=== PATIENT | male | born 1945 | race Caucasian/White ===

== ENCOUNTER → 2016-05-25 | Outpatient (CLI) | payer OTHER ==
[2013-06-13 11:46] VITALS: BP 113/64
--- NOTE | 2016-05-25 12:32 | US ---
HISTORY: Left renal cyst Study: Bilateral renal sonogram Comparison: None Technique: Multiple grayscale sonographic images were obtained. Findings: The right kidney measured 9.86 x 5.7 x 6.1 centimeters. The left kidney measured 10.1 x 4.9 x 4.9 ce ntimeters. Cortical thickness and cortical echogenicity were normal bilaterally. No solid masses, hy dronephrosis, stones, or perinephric fluid collections were identified. There is a 7.6 centimeter be nign left renal cyst present. Marked prostatic enlargement was identified particularly involving the median lobe. IMPRESSION: 7.6 centimeter benign left renal cyst. Prostatic enlargement Reported By:
== END ==
LOC: RAD 09:47
PROVIDERS: ATTEND Specialist
DX: N28.1 Cyst of kidney, acquired (principal)
CPT/HCPCS: 76770

== ENCOUNTER 2018-12-11 14:28 | Observation (INO) ==
--- NOTE | 2018-12-11 14:51 | DR.DIZZY ---
HPI Time seen Time Seen by Provider: 12/11/18 14:50 PCP Primary Care Physician: RYLAND ROMERO Complaint Chief Complaint:: PT STATES EARLIER HE WAS IN HIS SEWING ROOM HE GOT WEAK AND NEEDED TO SIT DOWN , AND HE CALLED RYLAND ROMERO'S OFFICE AND HE WAS TOLD TO COME TO ER ,BR Self Treatment fo Chief Complaint: PT STATES " HE FELT LIKE HIS BREATHING WAS DOING ANY GOOD "..BR Source History Provided: Patient Mode of Arrival Mode of Arrival: Ambulatory Timing Onset of Chief Complaint: 12/11/18 Symptom Onset: Unknown Location of Weakness Weakness Location: None Context History of: None Associated signs and symptoms Associated Signs and Symptoms: Faintness PMH PMH Past Medical History: Yes Past Medical History: Hypertension Past Medical History Comment: SKIN CANCER, PROSTATE > Past Surgical History: Yes Surgical History: Tonsillectomy Past Surgical History Comment: LEFT SHOULDER Family History History of Family Medical Conditions: No Social History Does patient currently use any type of tobacco product: No Have you used tobacco products in the last 12 months: No Type of Tobacco Use: None Does any household member use tobacco: No Alcohol Use: None Do you use any recreational Drugs:: No Lives With: Family Lives Where: Home infectious screening In the last 2 months have you had wt loss of >10#?: NO Have you had fever, night sweats or hemotysis?: No Have you traveled outside the country in the last 6 months?: No PE Vital Signs Vitals: Temperature 97.0 F Pulse Rate [Left] 53 Pulse Rate 93 Respiratory Rate 18 Blood Pressure [Left Arm] 150/82 Blood Pressure 147/79 O2 Sat by Pulse Oximetry 98 ROR Labs Reviewed Result Diagrams: 12/13/18 05:03 12/13/18 05:03 Laboratory: WBC 4.6 X10^3/uL (3.6-10.0) 12/11/18 15:39 RBC 5.50 X10^6/uL (4.7-6.0) 12/11/18 15:39 Hgb 16.9 g/dL (13.5-18.0) 12/11/18 15:39 Hct 49.0 % (42.0-54.0) 12/11/18 15:39 MCV 89.1 fL (80.0-100.0) 12/11/18 15:39 MCH 30.8 pg (27.0-34.0) 12/11/18 15:39 MCHC 34.5 g/dL (33.0-35.0) 12/11/18 15:39 RDW 14.8 % (11.6-16.5) 12/11/18 15:39 Plt Count 202 X10^3/uL (150.0-450.0) 12/11/18 15:39 MPV 8.3 fL (7.4-11.0) 12/11/18 15:39 Neut % (Auto) 67.8 % (42.0-75.0) 12/11/18 15:39 Lymph % (Auto) 21.3 % (21.0-51.0) 12/11/18 15:39 [place] % (Auto) 8.8 % (0.0-13.0) 12/11/18 15:39 Eos % (Auto) 1.4 % (0.9-2.9) 12/11/18 15:39 Baso % (Auto) 0.7 % (0.2-1.0) 12/11/18 15:39 Neut # (Auto) 3.1 x10^3/uL (2.2-4.8) 12/11/18 15:39 Lymph # (Auto) 1.0 X10^3/uL (1.3-2.9) L 12/11/18 15:39 [place] # (Auto) 0.4 x10^3/uL (0.3-0.8) 12/11/18 15:39 Eos # (Auto) 0.1 x10^3/uL (0.0-0.2) 12/11/18 15:39 Baso # (Auto) 0.0 X10^3/uL (0.0-0.1) 12/11/18 15:39 Absolute Nucleated RBC 0.1 /100WBC 12/11/18 15:39 Sodium 139 mmol/L (136-145) 12/11/18 15:39 Corrected Sodium TNP 12/11/18 15:39 Potassium 3.6 mmol/L (3.5-5.1) 12/11/18 15:39 Chloride 100 mmol/L (98-107) 12/11/18 15:39 Carbon Dioxide 34.1 mmol/L (21-32) H 12/11/18 15:39 BUN 19 mg/dL (7-18) H 12/11/18 15:39 Creatinine 1.24 mg/dL (0.70-1.30) 12/11/18 15:39 Est GFR (MDRD) Af Amer > 60 (>60) 12/11/18 15:39 Est GFR (MDRD) Non-Af > 60 (>60) 12/11/18 15:39 Glucose 94 mg/dL (65-99) 12/11/18 15:39 Calcium 9.3 mg/dL (8.5-10.1) 12/11/18 15:39 Corrected Calcium TNP 12/11/18 15:39 Total Bilirubin 0.80 mg/dL (0.2-1.0) 12/11/18 15:39 AST 31 Units/L (15-37) 12/11/18 15:39 ALT 42 Units/L (12-78) 12/11/18 15:39 Alkaline Phosphatase 47 Units/L (46-116) 12/11/18 15:39 Creatine Kinase 102 Units/L (39-308) 12/11/18 15:39 CK-MB (CK-2) 1.1 ng/mL (0-4.0) 12/11/18 15:39 CK/CKMB % Calc 1.1 % (<4) 12/11/18 15:39 Troponin I < 0.02 ng/mL (0-1.5) 12/11/18 15:39 B-Natriuretic Peptide 30.6 pg/mL (0-79) 12/11/18 15:39 Total Protein 7.4 g/dL (6.4-8.2) 12/11/18 15:39 Albumin 3.9 g/dL (3.4-5.0) 12/11/18 15:39 Globulin 3.5 g/dL (2.5-4.5) 12/11/18 15:39 Albumin/Globulin Ratio 1.1 Ratio (1.1-2.1) 12/11/18 15:39 Specimen Type Clean catch urine 12/11/18 16:02 Urine Color Yellow (YELLOW) 12/11/18 16:02 Urine Appearance Clear (CLEAR) 12/11/18 16:02 Urine pH 6.5 (5.0 - 8.0) 12/11/18 16:02 Ur Specific [place] 1.015 (1.000-1.030) 12/11/18 16:02 Urine Protein Negative (NEGATIVE) 12/11/18 16:02 Urine Glucose (UA) 2+ (NEGATIVE) 12/11/18 16:02 Urine Ketones Negative (NEGATIVE) 12/11/18 16:02 Urine Occult Blood 1+ (NEGATIVE) 12/11/18 16:02 Urine Nitrite Negative (NEGATIVE) 12/11/18 16:02 Urine Bilirubin Negative (NEGATIVE) 12/11/18 16:02 Urine Urobilinogen Normal (NORMAL) 12/11/18 16:02 Ur Leukocyte Esterase Negative (NEGATIVE) 12/11/18 16:02 Urine RBC 3-5 /HPF (0-3) A 12/11/18 16:02 Urine WBC None seen /HPF (0-5) 12/11/18 16:02 Ur Squamous Epith Cells Negative /HPF (NEGATIVE) 12/11/18 16:02 Urine Bacteria Negative /HPF (NEGATIVE) 12/11/18 16:02 Ur Culture Indicated? No/not indicated 12/11/18 16:02 Opioid Opioid Risk Tool Age (Garett box if 16-45): No History of Preadolescent Sexual Abuse: No Total: 0 Total Score Risk Category: Low Risk Copyright: Frankie VALENZUELA predicting aberrant behaviors Diagnosis Discharge Problem: Dizziness, Near syncope Chest pain Qualifiers: Chest pain type: unspecified Qualified Code(s): R07.9 - Chest pain, unspecified Instructions Instructions: Near-Syncope, [id number] Hypertension, [id number] Form - Blood Pressure Record Sheet Dizziness, [id number] Managing Your Hypertension Forms: Excuse From Work or School Patient Portal
[2018-12-11 15:48] LABS: BASOPHILS % (AUTO) 0.7 % (0.2-1.0); EOSINOPHILS # (AUTO) 0.1 x10^3/uL (0.0-0.2); EOSINOPHILS % (AUTO) 1.4 % (0.9-2.9); HEMOGLOBIN 16.9 g/dL (13.5-18.0); LYMPHOCYTES % (AUTO) 21.3 % (21.0-51.0); MEAN CORPUSCULAR HEMOGLOBIN 30.8 pg (27.0-34.0); MEAN CORPUSCULAR HGB CONC 34.5 g/dL (33.0-35.0); MEAN CORPUSCULAR VOLUME 89.1 fL (80.0-100.0); MEAN PLATELET VOLUME 8.3 fL (7.4-11.0); MONOCYTES # (AUTO) 0.4 x10^3/uL (0.3-0.8); MONOCYTES % (AUTO) 8.8 % (0.0-13.0); NEUTROPHILS # (AUTO) 3.1 x10^3/uL (2.2-4.8); NEUTROPHILS % (AUTO) 67.8 % (42.0-75.0); PLATELET COUNT 202 X10^3/uL (150.0-450.0); RED CELL DISTRIBUTION WIDTH 14.8 % (11.6-16.5); WHITE BLOOD COUNT 4.6 X10^3/uL (3.6-10.0)
--- NOTE | 2018-12-11 15:56 | RAD ---
HISTORY: Shortness of breath and generalized weakness Study: Single view of the chest. Comparison: None. Findings: The cardiomediastinal silhouette is normal. No focal consolidations, pleural effusions or pneumothorax. Osseous structures demonstrate no acute abnormality. There is lucency along the right hemidiaphragm that may represent eventration versus air under the right hemidiaphragm IMPRESSION: 1. No acute cardiopulmonary process. 2. Findings as above which may be secondary to normal diaphragmatic eventration however free intraperitoneal air cannot be excluded by this image alone. Correlate physical examination and presentation. Reported By:
[2018-12-11 16:10] LABS: BLOOD UREA NITROGEN 19 mg/dL (7-18); CALCIUM 9.3 mg/dL (8.5-10.1); CARBON DIOXIDE 34.1 mmol/L (21-32); CHLORIDE 100 mmol/L (98-107); CREATININE 1.24 mg/dL (0.70-1.30); SODIUM 139 mmol/L (136-145); TROPONIN I < 0.02 ng/mL (0-1.5); eGFR NON BLACK RACES > 60 (>60)
[2018-12-11 16:15] LABS: ALANINE AMINOTRANSFERASE 42 Units/L (12-78); ALBUMIN 3.9 g/dL (3.4-5.0); ALKALINE PHOSPHATASE 47 Units/L (46-116); ASPARTATE AMINO TRANSFERASE 31 Units/L (15-37); CKMB % 1.1 % (<4); CREATINE KINASE 102 Units/L (39-308); CREATINE KINASE MB 1.1 ng/mL (0-4.0); TOTAL PROTEIN 7.4 g/dL (6.4-8.2)
[2018-12-11 16:23] LABS: BILIRUBIN,URINE NEGATIVE (NEGATIVE); BLOOD/HEMOGLOBIN,URINE 1+ (NEGATIVE); GLUCOSE, URINE 2+ (NEGATIVE); KETONES,URINE NEGATIVE (NEGATIVE); LEUKOCYTE ESTERASE ,URINE NEGATIVE (NEGATIVE); NITRITES,URINE NEGATIVE (NEGATIVE); PH,URINE 6.5 (5.0 - 8.0); PROTEIN,URINE NEGATIVE (NEGATIVE); UROBILINOGEN,URINE NORMAL (NORMAL)
[2018-12-11 16:24] LABS: APPEARANCE,URINE CLEAR (CLEAR); COLOR,URINE YELLOW (YELLOW)
[2018-12-11 16:34] LABS: BACTERIA,URINE NEGATIVE /HPF (NEGATIVE); SQUAMOUS EPITHELIAL CELL,UR NEGATIVE /HPF (NEGATIVE)
[2018-12-11] MEDS ORDERED: PILOCARPINE HCL 5 MG PO SCH (22:00)
[2018-12-11] MEDS ORDERED: ULTRAM PO PRN (22:15)
[2018-12-11 22:24] VITALS: BMI 24.7
[2018-12-11 23:35] LABS: CREATINE KINASE 96 Units/L (39-308); TROPONIN I < 0.02 ng/mL (0-1.5)
[2018-12-11] MEDS ORDERED: PILOCARPINE HCL 5 MG PO PRN (23:45)
[2018-12-12 06:23] LABS: BASOPHILS % (AUTO) 0.5 % (0.2-1.0); EOSINOPHILS # (AUTO) 0.1 x10^3/uL (0.0-0.2); HEMATOCRIT 47.1 % (42.0-54.0); HEMOGLOBIN 16.4 g/dL (13.5-18.0); LYMPHOCYTES % (AUTO) 25.6 % (21.0-51.0); MEAN CORPUSCULAR HEMOGLOBIN 30.7 pg (27.0-34.0); MEAN CORPUSCULAR HGB CONC 34.8 g/dL (33.0-35.0); MEAN CORPUSCULAR VOLUME 88.2 fL (80.0-100.0); MEAN PLATELET VOLUME 8.3 fL (7.4-11.0); MONOCYTES # (AUTO) 0.4 x10^3/uL (0.3-0.8); MONOCYTES % (AUTO) 9.8 % (0.0-13.0); NEUTROPHILS # (AUTO) 2.4 x10^3/uL (2.2-4.8); NEUTROPHILS % (AUTO) 62.1 % (42.0-75.0); PLATELET COUNT 196 X10^3/uL (150.0-450.0); RED BLOOD COUNT 5.34 X10^6/uL (4.7-6.0); WHITE BLOOD COUNT 3.9 X10^3/uL (3.6-10.0)
[2018-12-12 06:53] LABS: ALANINE AMINOTRANSFERASE 38 Units/L (12-78); ALBUMIN 3.6 g/dL (3.4-5.0); ALKALINE PHOSPHATASE 44 Units/L (46-116); ASPARTATE AMINO TRANSFERASE 26 Units/L (15-37); BLOOD UREA NITROGEN 17 mg/dL (7-18); CALCIUM 9.1 mg/dL (8.5-10.1); CHLORIDE 101 mmol/L (98-107); CHOL/HDL RATIO 4.3 (0.0-5.0); CHOLESTEROL 182 mg/dL (0-200); CKMB % 1.1 % (<4); CREATINE KINASE 93 Units/L (39-308); CREATININE 1.14 mg/dL (0.70-1.30); HDL CHOLESTEROL 42 mg/dL (40-60); MAGNESIUM 1.9 mg/dL (1.7-2.9); SODIUM 139 mmol/L (136-145); TOTAL PROTEIN 7.1 g/dL (6.4-8.2); TRIGLYCERIDES 169 mg/dL (0-150); TROPONIN I < 0.02 ng/mL (0-1.5); eGFR NON BLACK RACES > 60 (>60)
[2018-12-12] MEDS ORDERED: KLOR-CON PO PRN (07:28)
[2018-12-12] MEDS ORDERED: K-RIDER 10 MEQ/NS 100 ML 10 MEQ/100 ML BAG IV PRN (07:28)
[2018-12-12] MEDS ORDERED: POTASSIUM CHL 40 MEQ/NS 0.45% 500 ML IV PRN (07:28)
[2018-12-12] MEDS ORDERED: POTASSIUM CHLORIDE LIQ 20 MEQ UDC PO PRN (07:28)
[2018-12-12] MEDS ORDERED: POTASSIUM CHL 60 MEQ/NS 0.45% 500 ML IV PRN (07:28)
[2018-12-12] MEDS ORDERED: MAGNESIUM SULFATE 1 GRAM/100 mL PREMIX 1 GM/100 ML BAG IV PRN (07:28)
[2018-12-12] MEDS ORDERED: MICRO K EXTEN CAP 10 MEQ PO PRN (07:28)
[2018-12-12] MEDS ORDERED: FINASTERIDE 5 MG PO SCH (09:00)
[2018-12-12] MEDS ORDERED: LOSARTAN HYDROCHLOROTHIAZIDE PO SCH (09:00)
[2018-12-12] MEDS: HYZAAR 50/12.5 MG PO SCH (09:45)
[2018-12-12] MEDS: PROSCAR PO SCH (09:45)
[2018-12-12] MEDS: NORVASC TAB 5 MG PO SCH (09:45)
[2018-12-12] MEDS: SILODOSIN 8 MG PO SCH (09:45)
[2018-12-12] MEDS: K-DUR TAB 20 MEQ PO PRN (09:45)
--- NOTE | 2018-12-12 10:22 | DR.H&P ---
H&P - History & Physical for Day of: H&P Date: 12/11/18 - Chief Complaint Chief Complaint: SOB, CHEST PAIN, WEAKNESS, DIZZINESS - History of Present Illness History of Present Illness: IS A 73 YEAR OLD PATIENT OF OURS WHO PRESENTED TO THE ER WITH COMPLAINTS OF SHORTNESS OF BREATH, WEAKNESS, AND DIZZINESS. HE REPORTS FEELING LIKE HE WAS GOING TO PASS OUT AND ALSO REPORTED MILD CHEST DISCOMFORT. ON ARRIVAL TO THE ER, VITALS WERE 97.0-63-20-97%-142/70. LABS WERE OBTAINED. ABNORMAL LAB VALUES INCLUDE THE FOLLOWING: CARBON DIOXIDE 34.1, BUN 19. CARDIAC ENZYMES WITHIN NORMAL LIMITS. URINALYSIS REVEALED RBC 3-5, OTHERWISE, UNREMARKABLE. A CHEST XRAY WAS OBTAINED AND REVEALED: No acute cardiopulmonary process. Findings as above which may be secondary to normal diaphragmatic eventration however free intraperitoneal air cannot be excluded by this image alone. Correlate physical examination and presentation. AN EKG WAS OBTAINED AND REVEALED: SINUS RHYTHM WITH HR 54. HE WAS ADMITTED TO THE HOSPITAL FOR FURTHER EVALUATION AND TREATMENT OF CHEST PAIN, RULE OUT ACUTE ME, DIZZINESS, AND NEAR SYNCOPE. WE WILL OBTAIN SERIAL CARDIAC ENZYMES AND EKGS. WE WILL RESUME HIS HOME MEDICATIONS. OTHERWISE, WE WILL FOLLOW UP WITH AM LABS AND CONTINUE TO MONITOR. - Past Medical History Past Medical History: Hypertension - Past Surgical History Surgical History: Ortho Surgery, Tonsillectomy - Social History Does patient currently use any type of tobacco product: No Have you used tobacco products in the last 12 months: No Type of Tobacco Use: None Does any household member use tobacco: No Alcohol Use: None Drug Use: None Prescription drug monitoring program results: PDMP was not reviewed - Medications Home Medications: poison oak extract Allergy (Verified 12/11/18 14:33) CONTINUE taking the following medications amlodipine 5 mg PO DAILY 12/11/18 [History] brimonidine 1 drp OPHTHALMIC (EYE) BID 12/11/18 [History] dorzolamide 1 drp OPHTHALMIC (EYE) BID 12/11/18 [History] finasteride 5 mg PO DAILY 12/11/18 [History] ketorolac 1 drp OPHTHALMIC (EYE) QID 12/11/18 [History] losartan-hydrochlorothiazide 1 tab PO DAILY 12/11/18 [History] pilocarpine HCl 5 mg PO TID PRN 12/11/18 [History] silodosin [Rapaflo] 8 mg PO DAILY 12/11/18 [History] - Review of Systems Constitutional: Weakness Eyes: No Symptoms Reported ENT: No Symptoms Reported Respiratory: Shortness of Breath Cardiovascular: Chest Pain, Light Headedness Gastrointestinal: No Symptoms Reported Genitourinary: No Symptoms Reported Musculoskeletal: No Symptoms Reported Skin: No Symptoms Reported Neurological: Weakness - Physical Exam Vital Signs: Temperature 97.7 F Pulse Rate [Left] 54 Pulse Rate 93 Respiratory Rate 20 Blood Pressure [Left Arm] 114/68 Blood Pressure 147/79 O2 Sat by Pulse Oximetry 98 Oriented: Normal Eyes: Normal Ear: Normal Nose: Normal Throat: Normal Respiratory: Diminished Throughout Cardiovascular: Normal : Normal Auscultation: Bowel Sounds: Normal Palpation: Normal Tenderness: Normal Skin: Normal Musculoskeletal: Normal Psychiatric: Normal Mood Description: Calm Affect: Normal Speech Pattern: Clear - Assessment/Plan (1) Chest pain Qualifiers: Chest pain type: unspecified Qualified Code(s): R07.9 - Chest pain, unspecified Status: Acute Plan: SERIAL CARDIAC ENZYMES AND EKG, SUPPLEMENTAL OXYGEN, OBTAIN ECHO, CONTINUE TO MONITOR (2) Dizziness Status: Acute (3) Near syncope Status: Acute - Review Patient was examined?: Yes - Allergies Allergies/Adverse Reactions: Allergies Allergy/AdvReac Type Severity Reaction Status Date / Time poison oak extract Allergy Verified 12/11/18 14:33
[2018-12-12] MEDS: ACULAR 0.5% OPHTH 1 DOSE OP SCH ×3 (13:02→21:45)
[2018-12-12] MEDS: ALPHAGAN P 0.15% OPHTH SOLN OP SCH ×2 (13:02→21:04)
[2018-12-12] MEDS: TRUSOPT PLUS (OPHTH) OP SCH ×2 (13:02→20:28)
[2018-12-12] MEDS: LOVENOX INJ 40 MG SYR SC SCH (13:03)
--- NOTE | 2018-12-12 20:55 | PCM.PROG ---
Progress Note - Progress Note for Day of Date of Exam: 12/12/18 - Subjective Subjective: WAS ADMITTED FOR CHEST PAIN, RULE OUT ACUTE [place], DIZZINESS, AND NEAR SYNCOPE. TODAY, HE IS ALERT AND ORIENTED, SITTING UP ON THE COUCH ON MORNING ROUNDS. HE CONTINUES WITH WEAKNESS AND DIZZINESS AT TIMES, BUT DENIES CHEST PAIN. ON EXAMINATION, HEART IS REGULAR IN RATE AND RHYTHM. BILATERAL LUNGS ARE NOTED WITH DIMINISHED LUNG SOUNDS THROUGHOUT. ABDOMEN IS ROUND, SOFT, AND NON-TENDER WITH NORMAL BOWEL SOUNDS NOTED IN ALL QUADRANTS. HIS VITALS THIS MORNING ARE: 97.8-52-18-97%-145/67. LABS WERE OBTAINED. ABNORMAL LAB VALUES INCLUDE THE FOLLOWING: POTASSIUM 3.4, ALK PHOS 44, TRIGLYCERIDES 169, LDL 106. CARDIAC ENZYMES AND EKGS HAVE BEEN WITHIN NORMAL LIMITS. TODAY, WE WILL STA RT THE PNEUMONIA PROTOCOL AND OBTAIN AN ECHO. OTHERWISE, WE WILL CONTINUE WITH CURRENT PLAN OF CARE. WE PLAN TO FOLLOW UP WITH AM LABS AND CONTINUE TO MONITOR. - Past Medical Family Social History Past Med/Fam/Surg Hx: No changes since H&P Allergies: Allergies poison oak extract Allergy (Verified 12/11/18 14:33) - Review of Systems ROS: No change since H&P - Vital Signs and I&O's Vital Signs: Temperature 98 F Pulse Rate [Left] 80 Pulse Rate 93 Respiratory Rate 18 Blood Pressure [Left Arm] 92/59 Blood Pressure 147/79 O2 Sat by Pulse Oximetry 98 Intake and Output: Intake & Output 12/10/18 12/11/18 12/12/18 12/13/18 11:59 11:59 11:59 11:59 Intake Total 730 / 730 Output Total Balance 50 50 729 / 729 - Physical Exam Oriented: Normal Eyes: Normal Ear: Normal Nose: Normal Throat: Normal Cardiovascular: Normal : Normal Auscultation: Bowel Sounds: Normal Palpation: Normal Tenderness: Normal Skin: Normal Musculoskeletal: Normal Psychiatric: Normal Mood Description: Calm Affect: Normal Speech Pattern: Clear - Laboratory and Diagnostics Result Diagrams: 12/12/18 05:50 12/12/18 05:50 Labs: Laboratory WBC 3.9 X10^3/uL (3.6-10.0) 12/12/18 05:50 RBC 5.34 X10^6/uL (4.7-6.0) 12/12/18 05:50 Hgb 16.4 g/dL (13.5-18.0) 12/12/18 05:50 Hct 47.1 % (42.0-54.0) 12/12/18 05:50 MCV 88.2 fL (80.0-100.0) 12/12/18 05:50 MCH 30.7 pg (27.0-34.0) 12/12/18 05:50 MCHC 34.8 g/dL (33.0-35.0) 12/12/18 05:50 RDW 15.0 % (11.6-16.5) 12/12/18 05:50 Plt Count 196 X10^3/uL (150.0-450.0) 12/12/18 05:50 MPV 8.3 fL (7.4-11.0) 12/12/18 05:50 Neut % (Auto) 62.1 % (42.0-75.0) 12/12/18 05:50 Lymph % (Auto) 25.6 % (21.0-51.0) 12/12/18 05:50 [place] % (Auto) 9.8 % (0.0-13.0) 12/12/18 05:50 Eos % (Auto) 2.0 % (0.9-2.9) 12/12/18 05:50 Baso % (Auto) 0.5 % (0.2-1.0) 12/12/18 05:50 Neut # (Auto) 2.4 x10^3/uL (2.2-4.8) 12/12/18 05:50 Lymph # (Auto) 1.0 X10^3/uL (1.3-2.9) L 12/12/18 05:50 [place] # (Auto) 0.4 x10^3/uL (0.3-0.8) 12/12/18 05:50 Eos # (Auto) 0.1 x10^3/uL (0.0-0.2) 12/12/18 05:50 Baso # (Auto) 0.0 X10^3/uL (0.0-0.1) 12/12/18 05:50 Absolute Nucleated RBC 0.1 /100WBC 12/12/18 05:50 Sodium 139 mmol/L (136-145) 12/12/18 05:50 Corrected Sodium TNP 12/12/18 05:50 Potassium 3.4 mmol/L (3.5-5.1) L 12/12/18 05:50 Chloride 101 mmol/L (98-107) 12/12/18 05:50 Carbon Dioxide 31.0 mmol/L (21-32) 12/12/18 05:50 BUN 17 mg/dL (7-18) 12/12/18 05:50 Creatinine 1.14 mg/dL (0.70-1.30) 12/12/18 05:50 Est GFR (MDRD) Af Amer > 60 (>60) 12/12/18 05:50 Est GFR (MDRD) Non-Af > 60 (>60) 12/12/18 05:50 Glucose 91 mg/dL (65-99) 12/12/18 05:50 Calcium 9.1 mg/dL (8.5-10.1) 12/12/18 05:50 Corrected Calcium TNP 12/12/18 05:50 Magnesium 1.9 mg/dL (1.7-2.9) 12/12/18 05:50 Total Bilirubin 0.90 mg/dL (0.2-1.0) 12/12/18 05:50 AST 26 Units/L (15-37) 12/12/18 05:50 ALT 38 Units/L (12-78) 12/12/18 05:50 Alkaline Phosphatase 44 Units/L (46-116) L 12/12/18 05:50 Creatine Kinase 93 Units/L (39-308) 12/12/18 05:50 CK-MB (CK-2) 1.0 ng/mL (0-4.0) 12/12/18 05:50 CK/CKMB % Calc 1.1 % (<4) 12/12/18 05:50 Troponin I < 0.02 ng/mL (0-1.5) 12/12/18 05:50 B-Natriuretic Peptide 30.6 pg/mL (0-79) 12/11/18 15:39 Total Protein 7.1 g/dL (6.4-8.2) 12/12/18 05:50 Albumin 3.6 g/dL (3.4-5.0) 12/12/18 05:50 Globulin 3.5 g/dL (2.5-4.5) 12/12/18 05:50 Albumin/Globulin Ratio 1.0 Ratio (1.1-2.1) L 12/12/18 05:50 Triglycerides 169 mg/dL (0-150) H 12/12/18 05:50 Cholesterol 182 mg/dL (0-200) 12/12/18 05:50 LDL Cholesterol, Calc 106 mg/dL (0-100) H 12/12/18 05:50 HDL Cholesterol 42 mg/dL (40-60) 12/12/18 05:50 Cholesterol/HDL Ratio 4.3 (0.0-5.0) 12/12/18 05:50 Specimen Type Clean catch urine 12/11/18 16:02 Urine Color Yellow (YELLOW) 12/11/18 16:02 Urine Appearance Clear (CLEAR) 12/11/18 16:02 Urine pH 6.5 (5.0 - 8.0) 12/11/18 16:02 Ur Specific [place] 1.015 (1.000-1.030) 12/11/18 16:02 Urine Protein Negative (NEGATIVE) 12/11/18 16:02 Urine Glucose (UA) 2+ (NEGATIVE) 12/11/18 16:02 Urine Ketones Negative (NEGATIVE) 12/11/18 16:02 Urine Occult Blood 1+ (NEGATIVE) 12/11/18 16:02 Urine Nitrite Negative (NEGATIVE) 12/11/18 16:02 Urine Bilirubin Negative (NEGATIVE) 12/11/18 16:02 Urine Urobilinogen Normal (NORMAL) 12/11/18 16:02 Ur Leukocyte Esterase Negative (NEGATIVE) 12/11/18 16:02 Urine RBC 3-5 /HPF (0-3) A 12/11/18 16:02 Urine WBC None seen /HPF (0-5) 12/11/18 16:02 Ur Squamous Epith Cells Negative /HPF (NEGATIVE) 12/11/18 16:02 Urine Bacteria Negative /HPF (NEGATIVE) 12/11/18 16:02 Ur Culture Indicated? No/not indicated 12/11/18 16:02 - Plan (1) Chest pain Status: Acute Qualifiers: Chest pain type: unspecified Qualified Code(s): R07.9 - Chest pain, unspecified Plan: SERIAL CARDIAC ENZYMES AND EKG, SUPPLEMENTAL OXYGEN, OBTAIN ECHO, CONTINUE TO MONITOR (2) Dizziness Status: Acute (3) Near syncope Status: Acute
[2018-12-13 05:42] LABS: BASOPHILS % (AUTO) 0.8 % (0.2-1.0); EOSINOPHILS # (AUTO) 0.1 x10^3/uL (0.0-0.2); EOSINOPHILS % (AUTO) 1.9 % (0.9-2.9); HEMATOCRIT 48.3 % (42.0-54.0); HEMOGLOBIN 16.7 g/dL (13.5-18.0); LYMPHOCYTES # (AUTO) 1.1 X10^3/uL (1.3-2.9); LYMPHOCYTES % (AUTO) 26.2 % (21.0-51.0); MEAN CORPUSCULAR HEMOGLOBIN 30.7 pg (27.0-34.0); MEAN CORPUSCULAR HGB CONC 34.6 g/dL (33.0-35.0); MEAN CORPUSCULAR VOLUME 88.8 fL (80.0-100.0); MEAN PLATELET VOLUME 8.5 fL (7.4-11.0); MONOCYTES # (AUTO) 0.4 x10^3/uL (0.3-0.8); MONOCYTES % (AUTO) 9.6 % (0.0-13.0); NEUTROPHILS # (AUTO) 2.5 x10^3/uL (2.2-4.8); NEUTROPHILS % (AUTO) 61.5 % (42.0-75.0); PLATELET COUNT 199 X10^3/uL (150.0-450.0); RED BLOOD COUNT 5.44 X10^6/uL (4.7-6.0); RED CELL DISTRIBUTION WIDTH 14.7 % (11.6-16.5); WHITE BLOOD COUNT 4.1 X10^3/uL (3.6-10.0)
[2018-12-13 05:55] LABS: ALANINE AMINOTRANSFERASE 34 Units/L (12-78); ALBUMIN 3.6 g/dL (3.4-5.0); ALKALINE PHOSPHATASE 47 Units/L (46-116); ASPARTATE AMINO TRANSFERASE 21 Units/L (15-37); BLOOD UREA NITROGEN 22 mg/dL (7-18); CALCIUM 9.1 mg/dL (8.5-10.1); CARBON DIOXIDE 31.1 mmol/L (21-32); CHLORIDE 101 mmol/L (98-107); CREATININE 1.25 mg/dL (0.70-1.30); SODIUM 138 mmol/L (136-145); TOTAL PROTEIN 7.3 g/dL (6.4-8.2); eGFR NON BLACK RACES 60 (>60)
[2018-12-13] MEDS: K-DUR TAB 20 MEQ PO PRN (06:26)
[2018-12-13 08:06] VITALS: BP 134/71
[2018-12-13] MEDS: PROSCAR PO SCH (08:42)
[2018-12-13] MEDS: HYZAAR 50/12.5 MG PO SCH (08:42)
[2018-12-13] MEDS: NORVASC TAB 5 MG PO SCH (08:42)
[2018-12-13] MEDS: SILODOSIN 8 MG PO SCH (08:44)
[2018-12-13] MEDS: ACULAR 0.5% OPHTH 1 DOSE OP SCH (08:49)
[2018-12-13] MEDS: LOVENOX INJ 40 MG SYR SC SCH (08:53)
[2018-12-13] MEDS: TRUSOPT PLUS (OPHTH) OP SCH (09:36)
[2018-12-13] MEDS: ALPHAGAN P 0.15% OPHTH SOLN OP SCH (09:36)
--- NOTE | 2018-12-13 09:40 | VAS ---
HISTORY: Syncope. Prior history of hypertension and prostate cancer Study: Carotid Doppler ultrasound Comparison: No priors Technique: Grayscale, color and duplex Doppler ultrasound of the carotid vertebral arteries is provided. Findings: Carotid and vertebral arteries flow cephalad bilaterally. Mild plaque formation is present involving the right carotid bulb and proximal ICA and ECA regions. More moderate appearing atherosclerotic plaque is seen involving left CCA left carotid bulb, proximal ICA ECA regions. Peak systolic velocity of the right ICA is 68.7 centimeters/second with an ICA/CCA ratio of 0.60. The peak systolic arterial velocity of the left ICA is 83.7 centimeters/second with an ICA/CCA ratio of 1.7. There is no indication of hemodynamically significant stenosis or occlusion. IMPRESSION: Less than 50% carotid stenosis bilaterally. Reported By:
== END 2018-12-13 12:05 | disposition home or self-care (01) ==
LOC: MED/SURG 14:32 → ER 14:32 → MED/SURG 21:52
PROVIDERS: ADMIT Internal Medicine; ATTEND Internal Medicine
CPT/HCPCS: 36415; 71010; 71045; 80053; 80061; 81001; 82550; 82553; 83735; 83880; 84484; 85025; 93005; 93306; 93880; 94760; 96365; 96372; 97161; 99284; A4222; S0138; G0378; J1650

== ENCOUNTER 2022-01-22 11:21 | Observation (INO) ==
--- NOTE | 2022-01-22 12:19 | DR.EXTPAIN ---
HPI Time seen Time Seen by Provider: 01/22/22 12:16 PCP Primary Care Physician: Vahe HPI Comment HPI Comment: Pt accompanied by daughters.Pt lives with aunts who are self ins in the 90`s .Aunt heard a noise when patient pfell.she caled the dughetr .She was unable to initially move the pateintEMS called and patient was brought to Er for evaluation .Pt has hx of dementia Complaint/Symptoms Chief Complaint Doctor Comments: fall Chief Complaint:: Patient's family states that he fell in the shower. When they found him they state that he was unable to follow simple commands and was very pale. He presents with a small skin tear on his left arm. The family state that they think he hit his head when he fell. The patient is unable to answer questions due to dementia. COVID-19 Coronavirus risk:travel/contact w/high risk person: No Has patient experienced Coronavirus symptoms: No Nurses notes reviewed Nurses Notes Review: Yes Source History Provided: Family Member Mode of arrival Mode of Arrival: EMS Timing Onset of Chief Complaint: 01/22/22 PMH PMH Past Medical History: Yes Past Medical History: Dementia and Hypertension Past Surgical History: Yes Surgical History: Ortho Surgery and Tonsillectomy Family History History of Family Medical Conditions: Yes Family Medical History: Diabetes Mellitus, Cancer, NH, Coronary Artery Disease and Hypertension Social History Does patient currently use any type of tobacco product: No Have you used tobacco products in the last 12 months: No Type of Tobacco Use: None Does any household member use tobacco: No Alcohol Use: None Do you use any recreational Drugs:: No Lives With: Family Lives Where: Home Travel Risk Coronavirus risk:travel/contact w/high risk person: No Has patient experienced Coronavirus symptoms: No Infectious screening In the last 2 months have you had wt loss of >10#?: NO Have you had fever, night sweats or hemotysis?: No Have you traveled outside the country in the last 6 months?: No Isolation: Standard ROS Review of Systems Constitutional: No Symptoms Reported Eyes: No Symptoms Reported ENTM: No Symptoms Reported Respiratoy: No Symptoms Reported Cardiovascular: No Symptoms Reported Gastrointestinal/Abdominal: No Symptoms Reported Neurological: Other (fall ) Musculoskeletal: See HPI Integumentary: No Symptoms Reported Endocrine: No Symptoms Reported PE Vital Signs Vitals: Temperature 97.8 F Pulse Rate 55 Respiratory Rate 18 Blood Pressure [Left Arm] 134/71 Blood Pressure 130/65 O2 Sat by Pulse Oximetry 98 General Limitations: Other (dementia ) General Appearance: Alert and In No Apparent Distress Head Head Exam: Normal Inspection, Atraumatic and Normocephalic Eyes Eye exam: Normal Appearance, PERRL and EOMI ENT ENT Exam: Normal Exam, Normal Oropharynx and Mucous Membranes Moist Neck Neck Exam: Normal Inspection and Tenderness Chest Chest Inspection: Normal Inspection and Symmetric Chest Wall Rise Respiratory Respiratory Exam: Normal Lung Sounds Bilat Respiratory Exam: Bilateral: Clear to Auscultation Cardiovascular Cardiovascular Exam: +S1 and +S2 Abdominal Exam Abdominal Exam: Normal Inspection, Normal Bowel Sounds and Soft Extremities Extremities Exam: Normal Inspection and Full ROM Upper Extremities Shoulder Exam: Normal Inspection and Full ROM Arm Exam: Normal Inspection, Full ROM and Other (left forram skin tear) Lower Extremities Hip/Pelvis Exam: Normal Inspection and Full ROM Knee Exam: Normal Inspection and Full ROM Neurological Neurological Exam: Alert Skin Skin Exam: Normal Color MDM Differential Diagnosis Differential Diagnosis: Contusion and Other (fall,head and neck injury ) ROR Labs Reviewed Laboratory Results Reviewed?: Yes Result Diagrams: 01/22/22 12:56 01/22/22 12:56 Laboratory: WBC 9.7 X10^3/uL (3.6-10.0) 01/22/22 12:56 RBC 4.15 X10^6/uL (4.7-6.0) L 01/22/22 12:56 Hgb 13.0 g/dL (13.5-18.0) L 01/22/22 12:56 Hct 37.5 % (42.0-54.0) L 01/22/22 12:56 MCV 90.4 fL (80.0-100.0) 01/22/22 12:56 MCH 31.3 pg (27.0-34.0) 01/22/22 12:56 MCHC 34.6 g/dL (33.0-35.0) 01/22/22 12:56 RDW 14.1 % (11.6-16.5) 01/22/22 12:56 Plt Count 201 X10^3/uL (150.0-450.0) 01/22/22 12:56 MPV 9.0 fL (7.4-11.0) 01/22/22 12:56 Neut % (Auto) 86.9 % (42.0-75.0) H 01/22/22 12:56 Lymph % (Auto) 6.6 % (21.0-51.0) L 01/22/22 12:56 Metcalfe % (Auto) 5.1 % (0.0-13.0) 01/22/22 12:56 Eos % (Auto) 1.0 % (0.9-2.9) 01/22/22 12:56 Baso % (Auto) 0.4 % (0.2-1.0) 01/22/22 12:56 Neut # (Auto) 8.4 x10^3/uL (2.2-4.8) H 01/22/22 12:56 Lymph # (Auto) 0.6 X10^3/uL (1.3-2.9) L 01/22/22 12:56 Metcalfe # (Auto) 0.5 x10^3/uL (0.3-0.8) 01/22/22 12:56 Eos # (Auto) 0.1 x10^3/uL (0.0-0.2) 01/22/22 12:56 Baso # (Auto) 0.0 X10^3/uL (0.0-0.1) 01/22/22 12:56 Absolute Nucleated RBC 0.0 /100WBC 01/22/22 12:56 Sodium 141 mmol/L (136-145) 01/22/22 12:56 Corrected Sodium 141 mmol/L (136-145) 01/22/22 12:56 Potassium 4.2 mmol/L (3.5-5.1) 01/22/22 12:56 Chloride 106 mmol/L (98-107) 01/22/22 12:56 Carbon Dioxide 24.8 mmol/L (21-32) 01/22/22 12:56 BUN 46 mg/dL (7-18) H 01/22/22 12:56 Creatinine 4.41 mg/dL (0.70-1.30) H 01/22/22 12:56 Est GFR (MDRD) Af Amer 17 (>60) L 01/22/22 12:56 Est GFR (MDRD) Non-Af 14 (>60) L 01/22/22 12:56 Glucose 120 mg/dL (65-99) H 01/22/22 12:56 Calcium 8.5 mg/dL (8.5-10.1) 01/22/22 12:56 Corrected Calcium 9.1 mg/dL (8.5-10.1) 01/22/22 12:56 Total Bilirubin 0.40 mg/dL (0.2-1.0) 01/22/22 12:56 AST 24 Units/L (15-37) 01/22/22 12:56 ALT 23 Units/L (12-78) 01/22/22 12:56 Alkaline Phosphatase 76 Units/L (46-116) 01/22/22 12:56 Total Protein 6.9 g/dL (6.4-8.2) 01/22/22 12:56 Albumin 3.3 g/dL (3.4-5.0) L 01/22/22 12:56 Globulin 3.6 g/dL (2.5-4.5) 01/22/22 12:56 Albumin/Globulin Ratio 0.9 Ratio (1.1-2.1) L 01/22/22 12:56 TSH 3rd Generation 4.342 uIU/mL (0.358-3.74) H 01/22/22 12:56 Opioid Opioid Risk Tool Age (Garett box if 16-45): No History of Preadolescent Sexual Abuse: No Total: 0 Total Score Risk Category: Low Risk Copyright: Frankie VALENZUELA predicting aberrant behaviors Discharge Plan Diagnosis Discharge Problem: Fall, Head injury, Stage 5 chronic kidney disease, Dementia, Anemia, Hypothyroidism Discharge Plan Patient Disposition: 09 ADMITTED INPATIENT Condition: Stable Prescriptions: No Action pilocarpine HCl 5 mg Tablet 5 mg PO TID PRN amlodipine 5 mg Tablet 5 mg PO DAILY losartan-hydrochlorothiazide 100-25 mg Tablet 1 tab PO DAILY finasteride 5 mg Tablet 5 mg PO DAILY silodosin [Rapaflo] 8 mg Capsule 8 mg PO DAILY ketorolac 0.5 % drops 1 drp OPHTHALMIC (EYE) QID Rx Instructions: 1 DROP RIGHT EYE 4 TIMES A DAY brimonidine 0.15 % drops 1 drp OPHTHALMIC (EYE) BID Rx Instructions: 1 DROP BOTH EYES TWICE A DAY dorzolamide 2 % drops 1 drp OPHTHALMIC (EYE) BID Rx Instructions: 1 DROP BOTH EYES TWICE A DAY levothyroxine 50 mcg tablet 50 mcg PO QAM aspirin [Ecotrin] 325 mg Tablet,Delayed Release (Dr/Ec) 325 mg PO QDAY Qty: 90 3RF Rx Instructions: TAKE ONE TABLET DAILY Health Concerns: Post Hospitalization: new medications and changes needed to prevent readmission or further decline. Pt educated and given instructions on all concerns. Plan of Treatment: Continue with present treatment and follow up plan. Pt is to keep follow up appointment as instructed and take medications as ordered. Orders to Discharge Patient Discharge Orders: Transfer (Routine); Ordered 01/22/22 Ordered By: Loy Guzman Follow ups/Referrals Follow ups/Referrals: Trevor Cotter [Primary Care Provider] - 3 days ADDITIONAL NOTES Additional Notes Additional Notes: stage 5 renal failure ,fall,head injury ,dementia ,abnormal TSH anemia .spoke with Dr Cotter agrees to accept for admission
[2022-01-22 13:06] LABS: BASOPHILS % (AUTO) 0.4 % (0.2-1.0); EOSINOPHILS # (AUTO) 0.1 x10^3/uL (0.0-0.2); HEMATOCRIT 37.5 % (42.0-54.0); LYMPHOCYTES # (AUTO) 0.6 X10^3/uL (1.3-2.9); LYMPHOCYTES % (AUTO) 6.6 % (21.0-51.0); MEAN CORPUSCULAR HEMOGLOBIN 31.3 pg (27.0-34.0); MEAN CORPUSCULAR HGB CONC 34.6 g/dL (33.0-35.0); MEAN CORPUSCULAR VOLUME 90.4 fL (80.0-100.0); MONOCYTES # (AUTO) 0.5 x10^3/uL (0.3-0.8); MONOCYTES % (AUTO) 5.1 % (0.0-13.0); NEUTROPHILS # (AUTO) 8.4 x10^3/uL (2.2-4.8); NEUTROPHILS % (AUTO) 86.9 % (42.0-75.0); RED BLOOD COUNT 4.15 X10^6/uL (4.7-6.0); RED CELL DISTRIBUTION WIDTH 14.1 % (11.6-16.5); WHITE BLOOD COUNT 9.7 X10^3/uL (3.6-10.0)
[2022-01-22 13:22] LABS: ALBUMIN 3.3 g/dL (3.4-5.0); CALCIUM 8.5 mg/dL (8.5-10.1); CARBON DIOXIDE 24.8 mmol/L (21-32); COR CA(FOR HYPOALB) 9.1 mg/dL (8.5-10.1); CREATININE 4.41 mg/dL (0.70-1.30); TOTAL PROTEIN 6.9 g/dL (6.4-8.2); TSH (3RD GENERATION) 4.342 uIU/mL (0.358-3.74)
--- NOTE | 2022-01-22 13:59 | CT ---
HISTORYFallSTUDYCT brain without contrastCOMPARISONNoneTECHNIQUEMultiple axial images of the brain were obtained from the skull base to the vertex [without] administration of IV contrast.Dose reduction techniques including Automated Exposure Control (AEC) and adjustment of mA and kV were utlized.FINDINGS[No acute intraparenchymal hemorrhage or mass can be identified.] [No extra-axial fluid collections are seen.] [No alteration in the attenuation of the brain parenchyma can be identified to suggest acute or subacute ischemic change.] Scattered periventricular small vessel ischemic changes and age-appropriate atrophy are seen. [The ventricular system is symmetric and nondilated.] [The extracranial structures are grossly unremarkable.]IMPRESSION[No acute intracranial process can be identified.]Electronically signed by: HERMELINDO COPELAND (Jan 22, 2022 13:57:15)
--- NOTE | 2022-01-22 14:00 | CT ---
HISTORYHead/neck injury after fall.STUDYCT cervical spine without contrastCOMPARISONNone available.TECHNIQUEMultiple axial images of the cervical spine were obtained from the skull base to the thoracic inlet without administration of IV contrast. Sagittal and coronal reformats were performed and reviewed. Dose reduction techniques including Automated Exposure Control (AEC) and adjustment of mA and kV were utilized.FINDINGSAlignment: There is exaggeration of the cervical lordosis with grade 1 anterolisthesis seen at C4-C5, C5-C6 and C6-C7 and mild retrolisthesis of C3 on C4 also noted.Vertebrae: No acute fracture.Disc spaces/facet joints: Multilevel mild discogenic degenerative changes are noted with moderate degenerative changes seen at the atlantoaxial joint and multilevel facet arthropathy. There is mild spinal canal stenosis at C3-C4. No other significant spinal canal stenosis. Multilevel moderate foraminal narrowing is present.Soft tissues: No acute findings. There is moderate atherosclerosis.IMPRESSION1. No acute findings.2. Additional findings as above, including moderate cervical spondylosis with multilevel anterolisthesis and retrolisthesis.Electronically signed by: Kemar Gutiérrez (Jan 22, 2022 13:58:03)
[2022-01-22] MEDS: NORVASC TAB 5 MG PO SCH (18:33)
[2022-01-22] MEDS: NS 1,000 ML IV 1,000 ML IV SCH (18:33)
[2022-01-22 18:38] VITALS: BMI 29.9
[2022-01-22] MEDS: ALPHAGAN-P OPHTH 1 DOSE OP SCH (21:00)
[2022-01-22] MEDS: XALATAN OP SCH (21:59)
[2022-01-22] MEDS: NAMENDA TAB 10 MG PO SCH (22:00)
[2022-01-22] MEDS: CRESTOR TAB 10 MG PO SCH (22:00)
[2022-01-23 05:19] LABS: BASOPHILS % (AUTO) 0.3 % (0.2-1.0); EOSINOPHILS # (AUTO) 0.3 x10^3/uL (0.0-0.2); EOSINOPHILS % (AUTO) 2.9 % (0.9-2.9); HEMATOCRIT 36.1 % (42.0-54.0); HEMOGLOBIN 12.6 g/dL (13.5-18.0); LYMPHOCYTES # (AUTO) 1.2 X10^3/uL (1.3-2.9); LYMPHOCYTES % (AUTO) 13.2 % (21.0-51.0); MEAN CORPUSCULAR HEMOGLOBIN 31.2 pg (27.0-34.0); MEAN CORPUSCULAR HGB CONC 34.9 g/dL (33.0-35.0); MEAN CORPUSCULAR VOLUME 89.5 fL (80.0-100.0); MEAN PLATELET VOLUME 9.5 fL (7.4-11.0); MONOCYTES # (AUTO) 0.6 x10^3/uL (0.3-0.8); MONOCYTES % (AUTO) 7.1 % (0.0-13.0); NEUTROPHILS % (AUTO) 76.5 % (42.0-75.0); RED BLOOD COUNT 4.03 X10^6/uL (4.7-6.0); RED CELL DISTRIBUTION WIDTH 13.9 % (11.6-16.5); WHITE BLOOD COUNT 9.1 X10^3/uL (3.6-10.0)
[2022-01-23 05:32] LABS: ALANINE AMINOTRANSFERASE 19 Units/L (12-78); ALBUMIN 3.3 g/dL (3.4-5.0); ALKALINE PHOSPHATASE 76 Units/L (46-116); ASPARTATE AMINO TRANSFERASE 22 Units/L (15-37); BLOOD UREA NITROGEN 41 mg/dL (7-18); CALCIUM 8.7 mg/dL (8.5-10.1); CARBON DIOXIDE 20.7 mmol/L (21-32); CHLORIDE 108 mmol/L (98-107); COR CA(FOR HYPOALB) 9.3 mg/dL (8.5-10.1); CREATININE 4.36 mg/dL (0.70-1.30); SODIUM 142 mmol/L (136-145); TOTAL PROTEIN 6.8 g/dL (6.4-8.2); eGFR NON BLACK RACES 14 (>60)
[2022-01-23] MEDS: SYNTHROID 75 mcg TAB PO SCH (06:04)
[2022-01-23] MEDS: NORVASC TAB 5 MG PO SCH (08:47)
[2022-01-23] MEDS: NAMENDA TAB 10 MG PO SCH ×2 (08:47→20:59)
[2022-01-23] MEDS: PROSCAR PO SCH (08:48)
[2022-01-23] MEDS: ALPHAGAN-P OPHTH 1 DOSE OP SCH ×2 (08:50→20:58)
[2022-01-23] MEDS: SILODOSIN 8 MG PO SCH (08:51)
[2022-01-23] MEDS: NS 1,000 ML IV 1,000 ML IV SCH ×2 (08:51→21:32)
[2022-01-23] MEDS ORDERED: EXELON PATCH TD SCH (09:00)
[2022-01-23] MEDS: ULTRAM PO PRN (09:24)
[2022-01-23] MEDS: PATIENT'S HOME MEDICATION TD SCH (11:25)
[2022-01-23] MEDS: CRESTOR TAB 10 MG PO SCH (20:57)
[2022-01-23] MEDS: XALATAN OP SCH (21:00)
[2022-01-24] MEDS: SYNTHROID 75 mcg TAB PO SCH (06:18)
[2022-01-24 06:36] LABS: BASOPHILS % (AUTO) 0.3 % (0.2-1.0); EOSINOPHILS % (AUTO) 0.5 % (0.9-2.9); HEMATOCRIT 32.4 % (42.0-54.0); HEMOGLOBIN 11.4 g/dL (13.5-18.0); LYMPHOCYTES # (AUTO) 0.4 X10^3/uL (1.3-2.9); LYMPHOCYTES % (AUTO) 5.7 % (21.0-51.0); MEAN CORPUSCULAR HEMOGLOBIN 31.6 pg (27.0-34.0); MEAN CORPUSCULAR HGB CONC 35.1 g/dL (33.0-35.0); MEAN CORPUSCULAR VOLUME 90.1 fL (80.0-100.0); MEAN PLATELET VOLUME 9.7 fL (7.4-11.0); MONOCYTES # (AUTO) 0.3 x10^3/uL (0.3-0.8); MONOCYTES % (AUTO) 3.8 % (0.0-13.0); NEUTROPHILS # (AUTO) 6.9 x10^3/uL (2.2-4.8); NEUTROPHILS % (AUTO) 89.7 % (42.0-75.0); WHITE BLOOD COUNT 7.7 X10^3/uL (3.6-10.0)
[2022-01-24 06:53] LABS: ALBUMIN 2.8 g/dL (3.4-5.0); CALCIUM 8.3 mg/dL (8.5-10.1); COR CA(FOR HYPOALB) 9.3 mg/dL (8.5-10.1); CREATININE 4.31 mg/dL (0.70-1.30); TOTAL PROTEIN 6.1 g/dL (6.4-8.2)
[2022-01-24] MEDS: NS 1,000 ML IV 1,000 ML IV SCH ×2 (09:08→16:42)
[2022-01-24] MEDS: NAMENDA TAB 10 MG PO SCH ×2 (09:10→21:45)
[2022-01-24] MEDS: PROSCAR PO SCH (09:11)
[2022-01-24] MEDS: NORVASC TAB 5 MG PO SCH ×2 (09:11→12:00)
[2022-01-24] MEDS: PATIENT'S HOME MEDICATION TD SCH (09:12)
[2022-01-24] MEDS: SILODOSIN 8 MG PO SCH (09:15)
[2022-01-24] MEDS: ALPHAGAN-P OPHTH 1 DOSE OP SCH ×2 (09:15→22:10)
[2022-01-24] MEDS: LOVENOX INJ 30 MG SYR SC SCH (10:00)
--- NOTE | 2022-01-24 17:24 | DR.H&P ---
H&P - History & Physical for Day of: H&P Date: 01/22/22 - Chief Complaint Chief Complaint: FALLS, AMS, WEAKNESS - History of Present Illness History of Present Illness: IS A 76 YEAR OLD PATIENT OF OURS. HE PRESENTED TO THE ER WITH COMPLAINTS OF RECENT FALLS, WEAKNESS, AND ALTERED MENTAL STATUS. PATIENT REPORTS THAT HE FELL IN THE SHOWER. HIS FAMILY MEMBERS REPORT THAT WHEN THEY FOUND HIM, HE WAS UNABLE TO FOLLOW SIMPLE COMMANDS AND WAS VERY PALE. THEY BELIEVE HE HIT HIS HEAD WHEN HE FELL. HE WAS NOTED TO HAVE A SKIN TEAR TO HIS LEFT ARM. UPON EVALUATION, PATIENT WAS DISORIENTED AND DID NOT FOLLOW COMMANDS. HIS PMH INCLUDES DEMENTIA, BPH, HYPOTHYROIDISM, AND HYPERTENSION. ON ARRIVAL TO THE ER, HIS VITALS WERE: 97.8-55-18-98%-130/65. LABS WERE OBTAINED. WBC 9.7, RBC 4.15, HGB 13.0, HCT 37.5, PLT COUNT 201, SODIUM 141, POTASSIUM 4.2, CHLORIDE 106, BUN 46, CREATININE 4.41, GLUCOSE 120, CALCIUM 8.5, TOTAL BILI 0.40, AST 24, ALT 23, ALK POS 76, TOTAL PROTEIN 6.9, ALBUMIN 3.3. A BRAIN CT WAS OBTAINED AND REVEALED: No acute intraparenchymal hemorrhage or mass can be identified. No extra-axial fluid collections are seen. No alteration in the attenuation of the brain parenchyma can be identified to suggest acute or subacute ischemic change. Scattered periventricular small vessel ischemic changes and age-appropriate atrophy are seen. The ventricular system is symmetric and nondilated. The extracranial structures are grossly unremarkable. No intracranial process identified. A CERVICAL SPINE CT WAS OBTAINED AND REVEALED: Alignment: There is exaggeration of the cervical lordosis with grade 1 anterolisthesis seen at C4-C5, C5-C6 and C6-C7 and mild retrolisthesis of C3 on C4 also noted. Vertebrae: No acute fracture. Disc spaces/facet joints: Multilevel mild discogenic degenerative changes are noted with moderate de generative changes seen at the atlantoaxial joint and multilevel facet arthropathy. There is mild spinal canal stenosis at C3-C4. No other significant spinal canal stenosis. Multilevel moderate foraminal narrowing is present. Soft tissues: No acute findings. There is moderate atherosclerosis. DECISION WAS MADE TO ADMIT PATIENT TO THE HOSPITAL INPATIENT STATUS FOR TREATMENT OF ACUTE RENAL FAILURE, GENERALIZED WEAKNESS, AMS, FALLS. HE WAS STARTED ON NORMAL SALINE AT 75 ML/HR, LOVENOX 30MG SC DAILY, AND HIS HOME MEDICATIONS WERE RESUMED. WE WILL HAVE PHYSICAL THERAPY EVALUATE AND WORK WITH PATIENT. OTHERWISE, WE WILL FOLLOW-UP WITH AM LABS AND CONTINUE TO MONITOR. TIME SPENT ON CLINICAL ASSESSMENT, REVIEWING LABS AND IMAGING, DECISION MAKING, AND DOCUMENTATION GREATER THAN 75 MINUTES. - Past Medical History Past Medical History: Dementia, Hypertension, Hypothyroidism Additional Medical History: BPH - Past Surgical History Surgical History: Tonsillectomy - Family History Family Medical History: Diabetes Mellitus, Coronary Artery Disease - Social History Does patient currently use any type of tobacco product: No Have you used tobacco products in the last 12 months: No Type of Tobacco Use: None Does any household member use tobacco: No Alcohol Use: None Drug Use: None - Medications Home Medications: poison oak extract Allergy (Verified 12/11/18 14:33) CONTINUE taking the following medications amitriptyline 10 mg tablet 1 tab PO HS 01/22/22 [History] aspirin 81 mg tablet 81 mg PO QDAY 01/22/22 [History] latanoprost 0.005 % eye drops 1 drp ophthalmic (eye) HS 01/22/22 [History] memantine 5 mg tablet 1 tab PO BID 01/22/22 [History] rivastigmine 9.5 mg/24 hour transdermal patch 1 patch QDAY 01/22/22 [History] rosuvastatin 5 mg tablet 1 tab PO HS 01/22/22 [History] - Review of Systems Constitutional: Weakness Eyes: No Symptoms Reported ENT: No Symptoms Reported Respiratory: No Symptoms Reported Cardiovascular: Light Headedness Gastrointestinal: No Symptoms Reported Genitourinary: No Symptoms Reported Musculoskeletal: No Symptoms Reported Skin: Wound (SKIN TEAR LEFT ARM ) Neurological: See HPI, Weakness, Confusion - Physical Exam Vital Signs: Temperature 98.8 F Pulse Rate [Left Brachial] 69 Pulse Rate 70 Respiratory Rate 20 Blood Pressure [Left Arm] 165/82 Blood Pressure 135/74 O2 Sat by Pulse Oximetry 97 Oriented: Not Oriented Eyes: Normal Ear: Normal Nose: Normal Throat: Normal Respiratory: Clear Throughout Cardiovascular: Normal : Normal Auscultation: Bowel Sounds: Normal Palpation: Normal Tenderness: Normal Skin: Decreased Turgur Musculoskeletal: Back:Lumbar Mood Description: Calm Affect: Flat Speech Pattern: Inappropriate - Assessment/Plan (1) Acute renal failure Qualifiers: Acute renal failure type: unspecified Qualified Code(s): N17.9 - Acute ki dney failure, unspecified Status: Acute Plan: ADMIT, NORMAL SALINE AT 75 ML/HR, LOVENOX 30MG SC DAILY, RESUME HOME MEDICATIONS, PHYSICAL THERAPY EVALUATION (2) Fall Status: Acute (3) Generalized weakness Status: Acute (4) AMS (altered mental status) Qualifiers: Altered mental status type: transient alteration of awareness Qualified Code(s): R40.4 - Transient alteration of awareness Status: Acute (5) Hypertension Qualifiers: Hypertension type: primary hypertension Qualified Code(s): I10 - Essential (primary) hypertension Status: Chronic (6) Dementia Qualifiers: Dementia type: vascular dementia Dementia severity: unspecified severity Dementia behavioral or psychological symptom: unspecified whether behavioral, psychotic, or mood disturbance or anxiety Qualified Code(s): F01.50 - Vascular dementia, unspecified severity, without behavioral disturbance, psychotic disturbance, mood disturbance, and anxiety Status: Chronic (7) Hypothyroidism Qualifiers: Hypothyroidism type: acquired Qualified Code(s): E03.9 - Hypothyroidism, unspecified Status: Chronic - Allergies Allergies/Adverse Reactions: Allergies Allergy/AdvReac Type Severity Reaction Status Date / Time poison oak extract Allergy Verified 12/11/18 14:33
[2022-01-24] MEDS ORDERED: MICRO K EXTEN CAP 10 MEQ PO PRN (18:14)
[2022-01-24] MEDS ORDERED: K-DUR TAB 20 MEQ PO PRN (18:14)
[2022-01-24] MEDS ORDERED: KLOR-CON PO PRN (18:14)
[2022-01-24] MEDS ORDERED: K-RIDER 10 MEQ/NS 100 ML 10 MEQ/100 ML BAG IV PRN (18:14)
[2022-01-24] MEDS ORDERED: POTASSIUM CHLORIDE LIQ 20 MEQ UDC PO PRN (18:14)
[2022-01-24] MEDS ORDERED: POTASSIUM CHL 60 MEQ/NS 0.45% 500 ML IV PRN (18:14)
[2022-01-24] MEDS ORDERED: POTASSIUM CHL 40 MEQ/NS 0.45% 500 ML IV PRN (18:14)
[2022-01-24] MEDS: CRESTOR TAB 10 MG PO SCH (21:45)
[2022-01-24] MEDS: MAGNESIUM SULFATE 1 GRAM/100 mL PREMIX 1 G/100 ML BAG IV PRN ×2 (21:46→22:11)
[2022-01-24] MEDS: XALATAN OP SCH (22:10)
--- NOTE | 2022-01-24 22:49 | PCM.PROG ---
Progress Note - Progress Note for Day of Date of Exam: 01/24/22 - Subjective Subjective: IS CURRENTLY INPATIENT STATUS FOR TREATMENT OF ACUTE RENAL FAILURE, RECENT FALL, AND GENERALIZED WEAKNESS. TODAY, HE IS ALERT AND ORIENTED, SITTING UP IN CHAIR ON MORNING ROUNDS. HE CONTINUES WITH COMPLAINTS OF GENERALIZED WEAKNESS. HE HAS BEEN HYPERTENSIVE THIS MORNING AND THROUGHOUT THE NIGHT. ON EXAMINATION, HEART IS REGULAR IN RATE AND RHYTHM. BILATERAL LUNGS ARE NOTED WITH DIMINISHED LUNG SOUNDS THROUGHOUT. ABDOMEN IS ROUND, SOFT, AND NON- TENDER WITH NORMAL BOWEL SOUNDS NOTED IN ALL QUADRANTS. BILATERAL LOWER EXTREMITIES ARE NOTED WITH 2+ PITTING EDEMA. HIS VITALS THIS MORNING ARE: 99.2-81-18-98%-189/93. LABS WERE OBTAINED. WBC 7.7, RBC 3.60, HGB 11.4, HCT 32.4, SODIUM 142, POTASSIUM 3.7, CHLORIDE 109, CARBON DIOXIDE 20.0, BUN 40, CREATININE 4.31, GLUCOSE 115, CALCIUM 8.3, AST 24, ALT 17, ALK PHOS 65, TOTAL PROTEIN 6.1, ALBUMIN 2.8, MAGNESIUM 1.8. HE IS CURRENTLY RECEIVING NORMAL SALINE AT 75 ML/HR, LOVENOX 30MG SC DAILY, AND HIS HOME MEDICATIONS WERE RESUMED. TODAY, WE WILL INCREASE NORMAL SALINE AT 100 ML/HR. WE WILL INCREASE HIS AMLODIPINE TO 10MG PO DAILY DUE TO HYPERTENSION. OTHERWISE, WE WILL FOLLOW-UP WITH AM LABS AND CHEST XRAY AND CONTINUE TO MONITOR. TIME SPENT ON CLINICAL ASSESSMENT, REVIEWING LABS AND IMAGING, DECISION MAKING, AND DOCUMENTATION GREATER THAN 45 MINUTES. - Past Medical Family Social History Past Med/Fam/Surg Hx: No changes since H&P Allergies: Allergies poison oak extract Allergy (Verified 12/11/18 14:33) - Review of Systems ROS: No change since H&P - Vital Signs and I&O's Vital Signs: Temperature 98.0 F Pulse Rate [Left Brachial] 87 Pulse Rate 70 Respiratory Rate 18 Blood Pressure [Left Arm] 163/80 Blood Pressure 135/74 O2 Sat by Pulse Oximetry 96 Intake and Output: Intake & Output 01/22/22 01/23/22 01/24/22 01/25/22 11:59 11:59 11:59 11:59 Intake Total 1170 / 1170 2200 / 2200 480 / 480 Output Total 120 / 120 Balance 1050 / 1050 2200 / 2200 480 / 480 - Physical Exam Oriented: Person Eyes: Normal Ear: Normal Nose: Normal Throat: Normal Respiratory: Generalized, Diminished Cardiovascular: Normal, Edema (2+ PITTING EDEMA BILATERAL LOWER EXTREMITIES ) : Normal Auscultation: Bowel Sounds: Normal Palpation: Normal Tenderness: Normal Skin: Decreased Turgur Musculoskeletal: Back:Lumbar Mood Description: Calm Affect: Flat Speech Pattern: Clear, Appropriate - Laboratory and Diagnostics Result Diagrams: 01/24/22 05:36 01/24/22 05:36 Labs: Laboratory WBC 7.7 X10^3/uL (3.6-10.0) 01/24/22 05:36 RBC 3.60 X10^6/uL (4.7-6.0) L 01/24/22 05:36 Hgb 11.4 g/dL (13.5-18.0) L 01/24/22 05:36 Hct 32.4 % (42.0-54.0) L 01/24/22 05:36 MCV 90.1 fL (80.0-100.0) 01/24/22 05:36 MCH 31.6 pg (27.0-34.0) 01/24/22 05:36 MCHC 35.1 g/dL (33.0-35.0) H 01/24/22 05:36 RDW 14.0 % (11.6-16.5) 01/24/22 05:36 Plt Count 172 X10^3/uL (150.0-450.0) 01/24/22 05:36 MPV 9.7 fL (7.4-11.0) 01/24/22 05:36 Neut % (Auto) 89.7 % (42.0-75.0) H 01/24/22 05:36 Lymph % (Auto) 5.7 % (21.0-51.0) L 01/24/22 05:36 Logan % (Auto) 3.8 % (0.0-13.0) 01/24/22 05:36 Eos % (Auto) 0.5 % (0.9-2.9) L 01/24/22 05:36 Baso % (Auto) 0.3 % (0.2-1.0) 01/24/22 05:36 Neut # (Auto) 6.9 x10^3/uL (2.2-4.8) H 01/24/22 05:36 Lymph # (Auto) 0.4 X10^3/uL (1.3-2.9) L 01/24/22 05:36 Logan # (Auto) 0.3 x10^3/uL (0.3-0.8) 01/24/22 05:36 Eos # (Auto) 0.0 x10^3/uL (0.0-0.2) 01/24/22 05:36 Baso # (Auto) 0.0 X10^3/uL (0.0-0.1) 01/24/22 05:36 Absolute Nucleated RBC 0.0 /100WBC 01/24/22 05:36 Sodium 142 mmol/L (136-145) 01/24/22 05:36 Corrected Sodium 142 mmol/L (136-145) 01/24/22 05:36 Potassium 3.7 mmol/L (3.5-5.1) 01/24/22 05:36 Chloride 109 mmol/L (98-107) H 01/24/22 05:36 Carbon Dioxide 20.0 mmol/L (21-32) L 01/24/22 05:36 BUN 40 mg/dL (7-18) H 01/24/22 05:36 Creatinine 4.31 mg/dL (0.70-1.30) H 01/24/22 05:36 Est GFR (MDRD) Af Amer 17 (>60) L 01/24/22 05:36 Est GFR (MDRD) Non-Af 14 (>60) L 01/24/22 05:36 Glucose 115 mg/dL (65-99) H 01/24/22 05:36 Calcium 8.3 mg/dL (8.5-10.1) L 01/24/22 05:36 Corrected Calcium 9.3 mg/dL (8.5-10.1) 01/24/22 05:36 Magnesium 1.8 mg/dL (2.0-2.9) L 01/24/22 18:35 Total Bilirubin 0.40 mg/dL (0.2-1.0) 01/24/22 05:36 AST 24 Units/L (15-37) 01/24/22 05:36 ALT 17 Units/L (12-78) 01/24/22 05:36 Alkaline Phosphatase 65 Units/L (46-116) 01/24/22 05:36 Total Protein 6.1 g/dL (6.4-8.2) L 01/24/22 05:36 Albumin 2.8 g/dL (3.4-5.0) L 01/24/22 05:36 Globulin 3.3 g/dL (2.5-4.5) 01/24/22 05:36 Albumin/Globulin Ratio 0.8 Ratio (1.1-2.1) L 01/24/22 05:36 TSH 3rd Generation 4.342 uIU/mL (0.358-3.74) H 01/22/22 12:56 - Plan (1) Acute renal failure Status: Acute Qualifiers: Acute renal failure type: unspecified Qualified Code(s): N17.9 - Acute kidney failure, unspecified Plan: NORMAL SALINE AT 100 ML/HR, LOVENOX 30MG SC DAILY, RESUME HOME MEDICATIONS, PHYSICAL THERAPY EVALUATION (2) Fall Status: Acute Qualifiers: Encounter type: initial encounter Qualified Code(s): W19.XXXA - Unspecified fall, initial encounter (3) Generalized weakness Status: Acute (4) AMS (altered mental status) Status: Acute Qualifiers: Altered mental status type: transient alteration of awareness Qualified Code(s): R40.4 - Transient alteration of awareness (5) Hypertension Status: Chronic Qualifiers: Hypertension type: primary hypertension Qualified Code(s): I10 - Essential (primary) hypertension (6) Dementia Status: Chronic Qualifiers: Dementia type: vascular dementia Dementia severity: unspecified severity Dementia behavioral or psychological symptom: unspecified whether behavioral, psychotic, or mood disturbance or anxiety Qualified Code(s): F01.50 - Vascular dementia, unspecified severity, without behavioral disturbance, psychotic disturbance, mood disturbance, and anxiety (7) Hypothyroidism Status: Chronic Qualifiers: Hypothyroidism type: acquired Qualified Code(s): E03.9 - Hypothyroidism, unspecified
[2022-01-25] MEDS: NS 1,000 ML IV 1,000 ML IV SCH ×2 (03:36→22:01)
[2022-01-25 04:11] LABS: BILIRUBIN,URINE NEGATIVE (NEGATIVE); BLOOD/HEMOGLOBIN,URINE 3+ (NEGATIVE); GLUCOSE, URINE 3+ (NEGATIVE); KETONES,URINE NEGATIVE (NEGATIVE); LEUKOCYTE ESTERASE ,URINE NEGATIVE (NEGATIVE); NITRITES,URINE NEGATIVE (NEGATIVE); PROTEIN,URINE 4+ (NEGATIVE); UROBILINOGEN,URINE NORMAL (NORMAL)
[2022-01-25 04:14] LABS: APPEARANCE,URINE CLEAR (CLEAR); COLOR,URINE PALE YELLOW (YELLOW)
[2022-01-25 04:15] LABS: BACTERIA,URINE NEGATIVE /HPF (NEGATIVE); RBC,URINE 0-2 /HPF (0-3); SQUAMOUS EPITHELIAL CELL,UR RARE /HPF (NEGATIVE)
[2022-01-25] MEDS: SYNTHROID 75 mcg TAB PO SCH (06:04)
[2022-01-25 06:38] LABS: BASOPHILS % (AUTO) 0.3 % (0.2-1.0); EOSINOPHILS # (AUTO) 0.3 x10^3/uL (0.0-0.2); EOSINOPHILS % (AUTO) 3.1 % (0.9-2.9); HEMATOCRIT 35.3 % (42.0-54.0); HEMOGLOBIN 12.2 g/dL (13.5-18.0); LYMPHOCYTES # (AUTO) 0.9 X10^3/uL (1.3-2.9); LYMPHOCYTES % (AUTO) 10.7 % (21.0-51.0); MEAN CORPUSCULAR HEMOGLOBIN 31.4 pg (27.0-34.0); MEAN CORPUSCULAR HGB CONC 34.7 g/dL (33.0-35.0); MEAN CORPUSCULAR VOLUME 90.4 fL (80.0-100.0); MEAN PLATELET VOLUME 9.8 fL (7.4-11.0); MONOCYTES # (AUTO) 0.7 x10^3/uL (0.3-0.8); MONOCYTES % (AUTO) 8.3 % (0.0-13.0); NEUTROPHILS # (AUTO) 6.7 x10^3/uL (2.2-4.8); NEUTROPHILS % (AUTO) 77.6 % (42.0-75.0); RED CELL DISTRIBUTION WIDTH 14.1 % (11.6-16.5); WHITE BLOOD COUNT 8.6 X10^3/uL (3.6-10.0)
[2022-01-25 06:57] LABS: ALANINE AMINOTRANSFERASE 20 Units/L (12-78); ALKALINE PHOSPHATASE 68 Units/L (46-116); ASPARTATE AMINO TRANSFERASE 31 Units/L (15-37); BLOOD UREA NITROGEN 43 mg/dL (7-18); CALCIUM 8.4 mg/dL (8.5-10.1); CARBON DIOXIDE 19.3 mmol/L (21-32); CHLORIDE 108 mmol/L (98-107); COR CA(FOR HYPOALB) 9.2 mg/dL (8.5-10.1); SODIUM 140 mmol/L (136-145); TOTAL PROTEIN 6.6 g/dL (6.4-8.2); eGFR NON BLACK RACES 14 (>60)
--- NOTE | 2022-01-25 07:57 | RAD ---
HISTORYAcute renal failure, shortness of breathSTUDYChest AP portableCOMPARISONNoneFINDINGSHeart is enlarged. Mild pulmonary venous congestion is present. No interstitial edema, alveolar edema, alveolar infiltrates or areas of consolidation identified. No definite pleural effusions identified. Right hemidiaphragm is elevated.IMPRESSIONCardiomegaly with mild pulmonary venous congestionNo acute infiltratesElevated right hemidiaphragmElectronically signed by: MIKE MCDONALD (Jan 25, 2022 07:55:30)
[2022-01-25] MEDS: NAMENDA TAB 10 MG PO SCH ×2 (08:41→20:43)
[2022-01-25] MEDS: NORVASC TAB 5 MG PO SCH (08:42)
[2022-01-25] MEDS: PROSCAR PO SCH (08:44)
[2022-01-25] MEDS: LOVENOX INJ 30 MG SYR SC SCH (08:45)
[2022-01-25] MEDS: SILODOSIN 8 MG PO SCH (08:48)
[2022-01-25] MEDS: PATIENT'S HOME MEDICATION TD SCH (08:49)
[2022-01-25] MEDS: ALPHAGAN-P OPHTH 1 DOSE OP SCH ×2 (08:52→20:44)
[2022-01-25] MEDS: CRESTOR TAB 10 MG PO SCH (20:44)
[2022-01-25] MEDS: XALATAN OP SCH (20:44)
[2022-01-25] MEDS: RESTORIL CAP 15 MG PO PRN (21:25)
--- NOTE | 2022-01-25 22:39 | US ---
HISTORYReason For StudySTUDYRENAL USST. LOUIS VA MEDICAL CENTERTECHNIQUEMultiple nickerson scale and color flow Doppler images of the kidneys were obtained. The region of the urinary bladder was evaluated as well.FINDINGSThe right kidney measures 8.8 x 5.7 x 5.1 cm. The left kidney measures 9.1 x 5.0 x 5.8 cm. There is increased echogenicity in the renal parenchyma bilaterally which raises concern for medical renal disease. There is no evidence of hydronephrosis on either side to suggest obstructive uropathy. There is a 7.6 cm cyst in the upper pole of the left kidney. The resistive index in the right kidney measures 0.7 and the resistive in dex in the left kidney measures 0.78. The urinary bladder has a volume estimated at 340 milliliters. The prostate is definitely enlarged and elevates the bladder floor.IMPRESSION1. Increased renal echotexture worrisome for medical renal disease. 2. No evidence of hydronephrosis or obstructive uropathy. 3. Large left upper pole renal cyst. 4. Prostate hypertrophy and possible bladder outlet obstruction.Electronically signed by: Alexis Heard (Jan 25, 2022 22:38:02)
[2022-01-26] MEDS: NS 1,000 ML IV 1,000 ML IV SCH ×2 (05:24→20:43)
[2022-01-26] MEDS: SYNTHROID 75 mcg TAB PO SCH (05:30)
[2022-01-26 07:10] LABS: BASOPHILS % (AUTO) 0.4 % (0.2-1.0); EOSINOPHILS # (AUTO) 0.2 x10^3/uL (0.0-0.2); EOSINOPHILS % (AUTO) 2.7 % (0.9-2.9); HEMATOCRIT 31.5 % (42.0-54.0); HEMOGLOBIN 11.1 g/dL (13.5-18.0); LYMPHOCYTES # (AUTO) 0.7 X10^3/uL (1.3-2.9); LYMPHOCYTES % (AUTO) 9.6 % (21.0-51.0); MEAN CORPUSCULAR HEMOGLOBIN 31.8 pg (27.0-34.0); MEAN CORPUSCULAR HGB CONC 35.2 g/dL (33.0-35.0); MEAN CORPUSCULAR VOLUME 90.3 fL (80.0-100.0); MEAN PLATELET VOLUME 9.7 fL (7.4-11.0); MONOCYTES # (AUTO) 0.7 x10^3/uL (0.3-0.8); MONOCYTES % (AUTO) 9.7 % (0.0-13.0); NEUTROPHILS # (AUTO) 5.9 x10^3/uL (2.2-4.8); NEUTROPHILS % (AUTO) 77.6 % (42.0-75.0); RED BLOOD COUNT 3.49 X10^6/uL (4.7-6.0); RED CELL DISTRIBUTION WIDTH 14.1 % (11.6-16.5); WHITE BLOOD COUNT 7.7 X10^3/uL (3.6-10.0)
[2022-01-26 07:33] LABS: ALANINE AMINOTRANSFERASE 24 Units/L (12-78); ALBUMIN 2.7 g/dL (3.4-5.0); ALKALINE PHOSPHATASE 67 Units/L (46-116); ASPARTATE AMINO TRANSFERASE 30 Units/L (15-37); BLOOD UREA NITROGEN 40 mg/dL (7-18); CALCIUM 8.2 mg/dL (8.5-10.1); CARBON DIOXIDE 18.6 mmol/L (21-32); CHLORIDE 107 mmol/L (98-107); COR CA(FOR HYPOALB) 9.2 mg/dL (8.5-10.1); CREATININE 4.44 mg/dL (0.70-1.30); SODIUM 139 mmol/L (136-145); eGFR NON BLACK RACES 14 (>60)
[2022-01-26] MEDS: NAMENDA TAB 10 MG PO SCH ×2 (08:45→20:45)
[2022-01-26] MEDS: NORVASC TAB 5 MG PO SCH (08:45)
[2022-01-26] MEDS: PROSCAR PO SCH (08:45)
[2022-01-26] MEDS: SILODOSIN 8 MG PO SCH (08:47)
[2022-01-26] MEDS: PATIENT'S HOME MEDICATION TD SCH (08:47)
[2022-01-26] MEDS: ALPHAGAN-P OPHTH 1 DOSE OP SCH ×2 (08:50→20:59)
[2022-01-26] MEDS: LOVENOX INJ 30 MG SYR SC SCH (08:51)
--- NOTE | 2022-01-26 09:23 | RAD ---
HISTORYShortness of breathSTUDYChest AP [id number]/20/22FINDINGSHeart size is now normal. Tammi are normal. No congestive heart failure is noted. No acute alveolar infiltrates are identified. Right hemidiaphragm remains elevated. Bony thorax is unremarkable.IMPRESSIONNo definite acute infiltrates or congestive heart failureContinued elevation right hemidiaphragmElectronically signed by: MIKE MCDONALD (Jan 26, 2022 09:21:18)
[2022-01-26] MEDS: AVODART PO SCH (11:35)
[2022-01-26] MEDS: FLOMAX PO SCH ×2 (11:35→20:45)
[2022-01-26] MEDS: ULTRAM PO PRN (20:43)
[2022-01-26] MEDS: CRESTOR TAB 10 MG PO SCH (20:45)
[2022-01-26] MEDS: RESTORIL CAP 15 MG PO PRN (20:45)
[2022-01-26] MEDS: XALATAN OP SCH (20:59)
[2022-01-27 06:17] LABS: BASOPHILS % (AUTO) 0.5 % (0.2-1.0); EOSINOPHILS # (AUTO) 0.3 x10^3/uL (0.0-0.2); EOSINOPHILS % (AUTO) 5.3 % (0.9-2.9); HEMATOCRIT 29.4 % (42.0-54.0); HEMOGLOBIN 10.3 g/dL (13.5-18.0); LYMPHOCYTES # (AUTO) 0.8 X10^3/uL (1.3-2.9); LYMPHOCYTES % (AUTO) 13.4 % (21.0-51.0); MEAN CORPUSCULAR HEMOGLOBIN 31.7 pg (27.0-34.0); MEAN CORPUSCULAR HGB CONC 34.8 g/dL (33.0-35.0); MEAN PLATELET VOLUME 9.7 fL (7.4-11.0); MONOCYTES # (AUTO) 0.6 x10^3/uL (0.3-0.8); MONOCYTES % (AUTO) 10.1 % (0.0-13.0); NEUTROPHILS % (AUTO) 70.7 % (42.0-75.0); RED BLOOD COUNT 3.23 X10^6/uL (4.7-6.0); RED CELL DISTRIBUTION WIDTH 14.4 % (11.6-16.5); WHITE BLOOD COUNT 5.7 X10^3/uL (3.6-10.0)
[2022-01-27] MEDS: SYNTHROID 75 mcg TAB PO SCH (06:20)
[2022-01-27 06:46] LABS: ALANINE AMINOTRANSFERASE 27 Units/L (12-78); ALBUMIN 2.4 g/dL (3.4-5.0); ALKALINE PHOSPHATASE 65 Units/L (46-116); ASPARTATE AMINO TRANSFERASE 32 Units/L (15-37); BLOOD UREA NITROGEN 40 mg/dL (7-18); CALCIUM 7.9 mg/dL (8.5-10.1); CARBON DIOXIDE 19.4 mmol/L (21-32); CHLORIDE 108 mmol/L (98-107); COR CA(FOR HYPOALB) 9.2 mg/dL (8.5-10.1); CREATININE 4.64 mg/dL (0.70-1.30); SODIUM 139 mmol/L (136-145); TOTAL PROTEIN 5.5 g/dL (6.4-8.2); eGFR NON BLACK RACES 13 (>60)
--- NOTE | 2022-01-27 07:00 | RAD ---
HISTORYShortness of breath, acute renal failureSTUDYChest AP [id number]/21/2022FINDINGSHear t size is normal. Tammi are normal. No congestive heart failure is identified. No acute infiltrates are identified. Right hemidiaphragm is chronically elevated. Under density in the right cardiophrenic angle likely represents an area of subsegmental atelectasis. Bony thorax is unremarkable.IMPRESSIONNo definite infiltrates or congestive heart failure identifiedChronically elevated right hemidiaphragmSubsegmental atelectasis right cardiophrenic angleElectronically signed by: MIKE MCDONALD (Jan 27, 2022 06:58:57)
--- NOTE | 2022-01-27 09:01 | PCM.PROG ---
Progress Note - Progress Note for Day of Date of Exam: 01/25/22 - Subjective Subjective: IS CURRENTLY INPATIENT STATUS FOR TREATMENT OF ACUTE RENAL FAILURE, RECENT FALL, AND GENERALIZED WEAKNESS. TODAY, HE IS ALERT AND ORIENTED, SITTING UP IN CHAIR ON MORNING ROUNDS. HE CONTINUES WITH COMPLAINTS OF GENERALIZED WEAKNESS. HE ALSO REPORTS SOME SHORTNESS OF BREATH THIS MORNING. HIS DAUGHTER REPORTS THAT HE HAS HAD SOME CONFUSION THROUGHOUT THE NIGHT. SHE ALSO REPORTS AN UNSTEADY GAIT ON AMBULATION. ON EXAMINATION, HEART IS REGULAR IN RATE AND RHYTHM. BILATERAL LUNGS ARE NOTED WITH DIMINISHED LUNG SOUNDS THROUGHOUT. ABDOMEN IS ROUND, SOFT, AND NON-TENDER WITH NORMAL BOWEL SOUNDS NOTED IN ALL QUADRANTS. BILATERAL LOWER EXTREMITIES ARE NOTED WITH 1+ PITTING EDEMA. HIS VITALS THIS MORNING ARE: 98.5-80-20-98%-163/84. LABS WERE OBTAINED. WBC 8.6, RBC 3.90, HGB 12.2, HCT 35.3, PLT COUNT 171, SODIUM 140, POTASSIUM 3.7, CHLORIDE 108, CARBON DIOXIDE 19.3, BUN 43, CREATININE 4.50, GFR 14, GLUCOSE 94, CALCIUM 8.4, AST 31, ALT 20, ALK PHOS 68, BNP 277, TOTAL PROTEIN 6.6, ALBUMIN 3.0. URINALYSIS WAS OBTAINED AND IS UNREMARKABLE. A CHEST XRAY WAS OBTAINED THIS MORNING AND REVEALED: Heart is enlarged. Mild pulmonary venous congestion is present. No interstitial edema, alveolar edema, alveolar infiltrates or areas of consolidation identified. No definite pleural effusions identified. Right hemidiaphragm is elevated. HE IS CURRENTLY RECEIVING NORMAL SALINE AT 100 ML/HR, LOVENOX 30MG SC DAILY, AMLODIPINE 10MG DAILY, AND HIS HOME MEDICATIONS WERE RESUMED. TODAY, WE WILL OBTAIN A RENAL ULTRASOUND DUE TO PERSISTENTLY ELEVATED RENAL FUNCTION AND ELEVATED BLOOD PRESSURES. WE WILL DECREASE HIS IV FLUIDS TO KVO. PHYSICAL THERAPY HAS BEEN WORKING WITH PATIENT DAILY AND FEEL THAT HE WOULD BENEFIT FROM CONTINUED PT SERVICES. PATIENT APPARTENTLY LIVES AT HOME WITH HIS ELDERLY FAMILY MEMBER. FAMILY IS REQUESTING SHORT TERM PLACEMENT FOR PHYSICAL THERAPY AND REHAB. OTHERWISE, WE WILL FOLLOW-UP WITH AM LABS AND CHEST XRAY AND CONTINUE TO MONITOR. TIME SPENT ON CLINICAL ASSESSMENT, REVIEWING LABS AND IMAGING, DECISION MAKING, AND DOCUMENTATION GREATER THAN 45 MINUTES. - Past Medical Family Social History Past Med/Fam/Surg Hx: No changes since H&P Allergies: Allergies poison oak extract Allergy (Verified 12/11/18 14:33) - Review of Systems ROS: No change since H&P - Vital Signs and I&O's Vital Signs: Temperature 98.6 F Pulse Rate [Left Brachial] 77 Pulse Rate 70 Respiratory Rate 20 Blood Pressure [Left Arm] 152/75 Blood Pressure 135/74 O2 Sat by Pulse Oximetry 96 Intake and Output: Intake & Output 01/24/22 01/25/22 01/26/22 01/27/22 11:59 11:59 11:59 11:59 Intake Total 2200 / 2200 2203 / 2203 2361 / 2361 2333 / 2333 Output Total 200 / 200 Balance 2200 / 2200 2203 / 2203 2361 / 2361 2133 / 2133 - Physical Exam Oriented: Person Eyes: Normal Ear: Normal Nose: Normal Throat: Normal Respiratory: Generalized, Diminished Cardiovascular: Normal, Edema (1+ PITTING EDEMA BILATERAL LOWER EXTREMITIES ) : Normal Auscultation: Bowel Sounds: Normal Palpation: Normal Tenderness: Normal Skin: Decreased Turgur Musculoskeletal: Back:Lumbar Mood Description: Calm Affect: Flat Speech Pattern: Clear, Appropriate - Laboratory and Diagnostics Result Diagrams: 01/27/22 05:06 01/27/22 05:06 Labs: 01/25/22 03:20 Urine,Clean Catch Urine Culture - Final Laboratory WBC 5.7 X10^3/uL (3.6-10.0) 01/27/22 05:06 RBC 3.23 X10^6/uL (4.7-6.0) L 01/27/22 05:06 Hgb 10.3 g/dL (13.5-18.0) L 01/27/22 05:06 Hct 29.4 % (42.0-54.0) L 01/27/22 05:06 MCV 91.0 fL (80.0-100.0) 01/27/22 05:06 MCH 31.7 pg (27.0-34.0) 01/27/22 05:06 MCHC 34.8 g/dL (33.0-35.0) 01/27/22 05:06 RDW 14.4 % (11.6-16.5) 01/27/22 05:06 Plt Count 172 X10^3/uL (150.0-450.0) 01/27/22 05:06 MPV 9.7 fL (7.4-11.0) 01/27/22 05:06 Neut % (Auto) 70.7 % (42.0-75.0) 01/27/22 05:06 Lymph % (Auto) 13.4 % (21.0-51.0) L 01/27/22 05:06 [place] % (Auto) 10.1 % (0.0-13.0) 01/27/22 05:06 Eos % (Auto) 5.3 % (0.9-2.9) H 01/27/22 05:06 Baso % (Auto) 0.5 % (0.2-1.0) 01/27/22 05:06 Neut # (Auto) 4.0 x10^3/uL (2.2-4.8) 01/27/22 05:06 Lymph # (Auto) 0.8 X10^3/uL (1.3-2.9) L 01/27/22 05:06 [place] # (Auto) 0.6 x10^3/uL (0.3-0.8) 01/27/22 05:06 Eos # (Auto) 0.3 x10^3/uL (0.0-0.2) H 01/27/22 05:06 Baso # (Auto) 0.0 X10^3/uL (0.0-0.1) 01/27/22 05:06 Absolute Nucleated RBC 0.0 /100WBC 01/27/22 05:06 Sodium 139 mmol/L (136-145) 01/27/22 05:06 Corrected Sodium TNP 01/27/22 05:06 Potassium 3.2 mmol/L (3.5-5.1) L 01/27/22 05:06 Chloride 108 mmol/L (98-107) H 01/27/22 05:06 Carbon Dioxide 19.4 mmol/L (21-32) L 01/27/22 05:06 BUN 40 mg/dL (7-18) H 01/27/22 05:06 Creatinine 4.64 mg/dL (0.70-1.30) H 01/27/22 05:06 Est GFR (MDRD) Af Amer 16 (>60) L 01/27/22 05:06 Est GFR (MDRD) Non-Af 13 (>60) L 01/27/22 05:06 Glucose 83 mg/dL (65-99) 01/27/22 05:06 Calcium 7.9 mg/dL (8.5-10.1) L 01/27/22 05:06 Corrected Calcium 9.2 mg/dL (8.5-10.1) 01/27/22 05:06 Magnesium 2.0 mg/dL (2.0-2.9) 01/27/22 05:06 Total Bilirubin 0.50 mg/dL (0.2-1.0) 01/27/22 05:06 AST 32 Units/L (15-37) 01/27/22 05:06 ALT 27 Units/L (12-78) 01/27/22 05:06 Alkaline Phosphatase 65 Units/L (46-116) 01/27/22 05:06 B-Natriuretic Peptide 232 pg/mL (0-79) H 01/27/22 05:06 Total Protein 5.5 g/dL (6.4-8.2) L 01/27/22 05:06 Albumin 2.4 g/dL (3.4-5.0) L 01/27/22 05:06 Globulin 3.1 g/dL (2.5-4.5) 01/27/22 05:06 Albumin/Globulin Ratio 0.8 Ratio (1.1-2.1) L 01/27/22 05:06 TSH 3rd Generation 4.342 uIU/mL (0.358-3.74) H 01/22/22 12:56 Specimen Type Clean catch urine 01/25/22 03:20 Urine Color Pale yellow (YELLOW) 01/25/22 03:20 Urine Appearance Clear (CLEAR) 01/25/22 03:20 Urine pH 6.0 (5.0 - 8.0) 01/25/22 03:20 Ur Specific [place] 1.020 (1.000-1.030) 01/25/22 03:20 Urine Protein 4+ (NEGATIVE) 01/25/22 03:20 Urine Glucose (UA) 3+ (NEGATIVE) 01/25/22 03:20 Urine Ketones Negative (NEGATIVE) 01/25/22 03:20 Urine Blood 3+ (NEGATIVE) 01/25/22 03:20 Urine Nitrite Negative (NEGATIVE) 01/25/22 03:20 Urine Bilirubin Negative (NEGATIVE) 01/25/22 03:20 Urine Urobilinogen Normal (NORMAL) 01/25/22 03:20 Ur Leukocyte Esterase Negative (NEGATIVE) 01/25/22 03:20 Urine RBC 0-2 /HPF (0-3) 01/25/22 03:20 Urine WBC None seen /HPF (0-5) 01/25/22 03:20 Ur Squamous Epith Cells Rare /HPF (NEGATIVE) 01/25/22 03:20 Urine Bacteria Negative /HPF (NEGATIVE) 01/25/22 03:20 Ur Culture Indicated? Yes/culture set up 01/25/22 03:20 - Plan (1) Acute renal failure Status: Acute Qualifiers: Acute renal failure type: unspecified Qualified Code(s): N17.9 - Acute kidney failure, unspecified Plan: NORMAL SALINE AT 20 ML/HR, LOVENOX 30MG SC DAILY, RESUME HOME MEDICATIONS, PHYSICAL THERAPY, OBTAIN RENAL ULTRASOUND (2) Fall Status: Acute Qualifiers: Encounter type: initial encounter Qualified Code(s): W19.XXXA - Unspecified fall, initial encounter (3) Generalized weakness Status: Acute (4) AMS (altered mental status) Status: Acute Qualifiers: Altered mental status type: transient alteration of awareness Qualified Code(s): R40.4 - Transient alteration of awareness (5) Hypertension Status: Chronic Qualifiers: Hypertension type: primary hypertension Qualified Code(s): I10 - Essential (primary) hypertension (6) Dementia Status: Chronic Qualifiers: Dementia type: vascular dementia Dementia severity: unspecified severity Dementia behavioral or psychological symptom: unspecified whether behavioral, psychotic, or mood disturbance or anxiety Qualified Code(s): F01.50 - Vascular dementia, unspecified severity, without behavioral disturbance, psychotic disturbance, mood disturbance, and anxiety (7) Hypothyroidism Status: Chronic Qualifiers: Hypothyroidism type: acquired Qualified Code(s): E03.9 - Hypothyroidism, unspecified
[2022-01-27] MEDS: LOVENOX INJ 30 MG SYR SC SCH (09:02)
[2022-01-27] MEDS: NAMENDA TAB 10 MG PO SCH ×2 (09:04→20:37)
[2022-01-27] MEDS: AVODART PO SCH (09:05)
[2022-01-27] MEDS: NORVASC TAB 5 MG PO SCH (09:05)
[2022-01-27] MEDS: FLOMAX PO SCH ×2 (09:06→20:37)
[2022-01-27] MEDS: ALPHAGAN-P OPHTH 1 DOSE OP SCH ×2 (09:08→20:46)
[2022-01-27] MEDS: PATIENT'S HOME MEDICATION TD SCH (09:09)
[2022-01-27] MEDS: SILODOSIN 8 MG PO SCH (09:11)
[2022-01-27] MEDS: NS 1,000 ML IV 1,000 ML IV SCH ×3 (09:12→23:26)
[2022-01-27] MEDS ORDERED: COLACE CAP 100 MG PO SCH (12:00)
[2022-01-27] MEDS ORDERED: MILK OF MAGNESIA PO SCH (13:00)
[2022-01-27] MEDS ORDERED: COLACE CAP 100 MG PO PRN (13:28)
[2022-01-27] MEDS ORDERED: MILK OF MAGNESIA PO PRN (13:28)
[2022-01-27] MEDS: CRESTOR TAB 10 MG PO SCH (20:37)
[2022-01-27] MEDS: RESTORIL CAP 15 MG PO PRN (20:39)
[2022-01-27] MEDS: XALATAN OP SCH (20:46)
--- NOTE | 2022-01-27 21:40 | PCM.PROG ---
Progress Note - Progress Note for Day of Date of Exam: 01/26/22 - Subjective Subjective: IS CURRENTLY INPATIENT STATUS FOR TREATMENT OF ACUTE RENAL FAILURE, RECENT FALL, AND GENERALIZED WEAKNESS. TODAY, HE IS ALERT AND ORIENTED, SITTING UP IN CHAIR ON MORNING ROUNDS. HE CONTINUES WITH COMPLAINTS OF GENERALIZED WEAKNESS. HE CONTINUES TO HAVE SHORTNESS OF BREATH, BUT REPORTS SLIGHT IMPROVEMENT THIS MORNING. HIS DAUGHTER REPORTS THAT HE HAS HAD SOME CONFUSION THROUGHOUT THE NIGHT. SHE ALSO REPORTS AN UNSTEADY GAIT ON AMBULATION. ON EXAMINATION, HEART IS REGULAR IN RATE AND RHYTHM. BILATERAL LUNGS ARE NOTED WITH DIMINISHED LUNG SOUNDS THROUGHOUT. ABDOMEN IS ROUND, SOFT, AND NON-TENDER WITH NORMAL BOWEL SOUNDS NOTED IN ALL QUADRANTS. BILATERAL LOWER EXTREMITIES ARE NOTED WITH 1+ PITTING EDEMA. HIS VITALS THIS MORNING ARE: 98.3-80-20-96%-171/89. LABS WERE OBTAINED. WBC 7.7, RBC 3.49, HGB 11.1, HCT 31.5, PLT COUNT 177, SODIUM 139, POTASSIUM 3.3, CHLORIDE 107, CARBON DIOXIDE 18.6, BUN 40, CREATININE 4.44, GFR 14, GLUCOSE 91, CALCIUM 8.2, AST 30, ALT 24, ALK PHOS 67, BNP 313, TOTAL PROTEIN 6.0, ALBUMIN 2.7. URINE CULTURE IS PENDING. A RENAL ULTRASOUND WAS OBA INED YESTERDAY AND REVEALED: 1. Increased renal echotexture worrisome for medical renal disease. 2. No evidence of hydronephrosis or obstructive uropathy. 3. Large left upper pole renal cyst. 4. Prostate hypertrophy and possible bladder outlet obstruction. A CHEST XRAY WAS OBTAINED THIS MORNING AND REVEALED: Heart size is now normal. Tammi are normal. No congestive heart failure is noted. No acute alveolar infiltrates are identified. Right hemidiaphragm remains elevated. Bony thorax is unremarkable. HE IS CURRENTLY RECEIVING NORMAL SALINE AT 30 ML/HR, LOVENOX 30MG SC DAILY, AMLODIPINE 10MG DAILY, AND HIS HOME MEDICATIONS WERE RESUMED. TODAY, WE WILL DISCONTINUE THE PROSCAR AND START FLOMAX 0.4MG PO BID, AND AVODART 0.5MG PO DAILY. WE WILL OBTAIN AN ECHO. PHYSICAL THERAPY HAS BEEN WORKING WITH PATIENT DAILY AND FEEL THAT HE WOULD BENEFIT FROM CONTINUED PT SERVICES. PATIENT APPARTENTLY LIVES AT HOME WITH HIS ELDERLY FAMILY MEMBER. FAMILY IS REQUESTING SHORT TERM PLACEMENT FOR PHYSICAL THERAPY AND REHAB. OTHERWISE, WE WILL FOLLOW-UP WITH AM LABS AND CHEST XRAY AND CONTINUE TO MONITOR. TIME SPENT ON CLINICAL ASSESSMENT, REVIEWING LABS AND IMAGING, DECISION MAKING, AND DOCUMENTATION GREATER THAN 45 MINUTES. - Past Medical Family Social History Past Med/Fam/Surg Hx: No changes since H&P Allergies: Allergies poison oak extract Allergy (Verified 12/11/18 14:33) - Review of Systems ROS: No change since H&P - Vital Signs and I&O's Vital Signs: Temperature 99.1 F Pulse Rate [Left Brachial] 84 Pulse Rate 70 Respiratory Rate 18 Blood Pressure [Left Arm] 135/68 Blood Pressure 135/74 O2 Sat by Pulse Oximetry 97 Intake and Output: Intake & Output 01/25/22 01/26/22 01/27/22 01/28/22 11:59 11:59 11:59 11:59 Intake Total 2203 / 2203 2361 / 2361 2333 / 2333 864 / 864 Output Total 200 / 200 Balance 2203 / 2203 2361 / 2361 2133 / 2133 864 / 864 - Physical Exam Oriented: Person Eyes: Normal Ear: Normal Nose: Normal Throat: Normal Respiratory: Generalized, Diminished Cardiovascular: Normal, Edema (1+ PITTING EDEMA BILATERAL LOWER EXTREMITIES ) : Normal Auscultation: Bowel Sounds: Normal Palpation: Normal Tenderness: Normal Skin: Decreased Turgur Musculoskeletal: Back:Lumbar Mood Description: Calm Affect: Flat Speech Pattern: Clear, Appropriate - Laboratory and Diagnostics Result Diagrams: 01/27/22 05:06 01/27/22 05:06 Labs: 01/25/22 03:20 Urine,Clean Catch Urine Culture - Final Laboratory WBC 5.7 X10^3/uL (3.6-10.0) 01/27/22 05:06 RBC 3.23 X10^6/uL (4.7-6.0) L 01/27/22 05:06 Hgb 10.3 g/dL (13.5-18.0) L 01/27/22 05:06 Hct 29.4 % (42.0-54.0) L 01/27/22 05:06 MCV 91.0 fL (80.0-100.0) 01/27/22 05:06 MCH 31.7 pg (27.0-34.0) 01/27/22 05:06 MCHC 34.8 g/dL (33.0-35.0) 01/27/22 05:06 RDW 14.4 % (11.6-16.5) 01/27/22 05:06 Plt Count 172 X10^3/uL (150.0-450.0) 01/27/22 05:06 MPV 9.7 fL (7.4-11.0) 01/27/22 05:06 Neut % (Auto) 70.7 % (42.0-75.0) 01/27/22 05:06 Lymph % (Auto) 13.4 % (21.0-51.0) L 01/27/22 05:06 [place] % (Auto) 10.1 % (0.0-13.0) 01/27/22 05:06 Eos % (Auto) 5.3 % (0.9-2.9) H 01/27/22 05:06 Baso % (Auto) 0.5 % (0.2-1.0) 01/27/22 05:06 Neut # (Auto) 4.0 x10^3/uL (2.2-4.8) 01/27/22 05:06 Lymph # (Auto) 0.8 X10^3/uL (1.3-2.9) L 01/27/22 05:06 [place] # (Auto) 0.6 x10^3/uL (0.3-0.8) 01/27/22 05:06 Eos # (Auto) 0.3 x10^3/uL (0.0-0.2) H 01/27/22 05:06 Baso # (Auto) 0.0 X10^3/uL (0.0-0.1) 01/27/22 05:06 Absolute Nucleated RBC 0.0 /100WBC 01/27/22 05:06 Sodium 139 mmol/L (136-145) 01/27/22 05:06 Corrected Sodium TNP 01/27/22 05:06 Potassium 3.2 mmol/L (3.5-5.1) L 01/27/22 05:06 Chloride 108 mmol/L (98-107) H 01/27/22 05:06 Carbon Dioxide 19.4 mmol/L (21-32) L 01/27/22 05:06 BUN 40 mg/dL (7-18) H 01/27/22 05:06 Creatinine 4.64 mg/dL (0.70-1.30) H 01/27/22 05:06 Est GFR (MDRD) Af Amer 16 (>60) L 01/27/22 05:06 Est GFR (MDRD) Non-Af 13 (>60) L 01/27/22 05:06 Glucose 83 mg/dL (65-99) 01/27/22 05:06 Calcium 7.9 mg/dL (8.5-10.1) L 01/27/22 05:06 Corrected Calcium 9.2 mg/dL (8.5-10.1) 01/27/22 05:06 Magnesium 2.0 mg/dL (2.0-2.9) 01/27/22 05:06 Total Bilirubin 0.50 mg/dL (0.2-1.0) 01/27/22 05:06 AST 32 Units/L (15-37) 01/27/22 05:06 ALT 27 Units/L (12-78) 01/27/22 05:06 Alkaline Phosphatase 65 Units/L (46-116) 01/27/22 05:06 B-Natriuretic Peptide 232 pg/mL (0-79) H 01/27/22 05:06 Total Protein 5.5 g/dL (6.4-8.2) L 01/27/22 05:06 Albumin 2.4 g/dL (3.4-5.0) L 01/27/22 05:06 Globulin 3.1 g/dL (2.5-4.5) 01/27/22 05:06 Albumin/Globulin Ratio 0.8 Ratio (1.1-2.1) L 01/27/22 05:06 TSH 3rd Generation 4.342 uIU/mL (0.358-3.74) H 01/22/22 12:56 Specimen Type Clean catch urine 01/25/22 03:20 Urine Color Pale yellow (YELLOW) 01/25/22 03:20 Urine Appearance Clear (CLEAR) 01/25/22 03:20 Urine pH 6.0 (5.0 - 8.0) 01/25/22 03:20 Ur Specific [place] 1.020 (1.000-1.030) 01/25/22 03:20 Urine Protein 4+ (NEGATIVE) 01/25/22 03:20 Urine Glucose (UA) 3+ (NEGATIVE) 01/25/22 03:20 Urine Ketones Negative (NEGATIVE) 01/25/22 03:20 Urine Blood 3+ (NEGATIVE) 01/25/22 03:20 Urine Nitrite Negative (NEGATIVE) 01/25/22 03:20 Urine Bilirubin Negative (NEGATIVE) 01/25/22 03:20 Urine Urobilinogen Normal (NORMAL) 01/25/22 03:20 Ur Leukocyte Esterase Negative (NEGATIVE) 01/25/22 03:20 Urine RBC 0-2 /HPF (0-3) 01/25/22 03:20 Urine WBC None seen /HPF (0-5) 01/25/22 03:20 Ur Squamous Epith Cells Rare /HPF (NEGATIVE) 01/25/22 03:20 Urine Bacteria Negative /HPF (NEGATIVE) 01/25/22 03:20 Ur Culture Indicated? Yes/culture set up 01/25/22 03:20 - Plan (1) Acute renal failure Status: Acute Qualifiers: Acute renal failure type: unspecified Qualified Code(s): N17.9 - Acute kidney failure, unspecified Plan: NORMAL SALINE AT 20 ML/HR, LOVENOX 30MG SC DAILY, FLOMAX 0.4MG PO BID, AVODART 0.5MG PO DAILY, DISCONTINUE PROSCAR, CONTINUE OTHER HOME MEDICATIONS, PHYSICAL THERAPY (2) Bladder outlet obstruction Status: Suspected (3) Fall Status: Acute Qualifiers: Encounter type: initial encounter Qualified Code(s): W19.XXXA - Unspecified fall, initial encounter (4) Generalized weakness Status: Acute (5) AMS (altered mental status) Status: Acute Qualifiers: Altered mental status type: transient alteration of awareness Qualified Code(s): R40.4 - Transient alteration of awareness (6) Hypertension Status: Chronic Qualifiers: Hypertension type: primary hypertension Qualified Code(s): I10 - Essential (primary) hypertension (7) Dementia Status: Chronic Qualifiers: Dementia type: vascular dementia Dementia severity: unspecified severity Dementia behavioral or psychological symptom: unspecified whether behavioral, psychotic, or mood disturbance or anxiety Qualified Code(s): F01.50 - Vascular dementia, unspecified severity, without behavioral disturbance, psychotic disturbance, mood disturbance, and anxiety (8) Hypothyroidism Status: Chronic Qualifiers: Hypothyroidism type: acquired Qualified Code(s): E03.9 - Hypothyroidism, unspecified (9) BPH (benign prostatic hyperplasia) Status: Acute
[2022-01-28] MEDS: SYNTHROID 75 mcg TAB PO SCH (05:59)
--- NOTE | 2022-01-28 06:14 | RAD ---
HISTORYSOB HX: HTNSTUDYCHEST, 1 [id number]/22/2022FINDINGSThe trachea is midline. The cardiac silhouette is unremarkable. There is persistent elevation of the right hemidiaphragm. Mild subsegmental atelectasis in the right lung base.. The bony thorax is unremarkable.IMPRESSIONMild subsegmental atelectasis right base.No change from previous 01/27/2022.Electronically signed by: Ten Sorenson (Jan 28, 2022 06:12:56)
[2022-01-28 07:01] LABS: BASOPHILS % (AUTO) 0.5 % (0.2-1.0); EOSINOPHILS # (AUTO) 0.3 x10^3/uL (0.0-0.2); EOSINOPHILS % (AUTO) 5.2 % (0.9-2.9); HEMATOCRIT 28.1 % (42.0-54.0); HEMOGLOBIN 9.9 g/dL (13.5-18.0); LYMPHOCYTES # (AUTO) 0.8 X10^3/uL (1.3-2.9); LYMPHOCYTES % (AUTO) 15.1 % (21.0-51.0); MEAN CORPUSCULAR HEMOGLOBIN 31.6 pg (27.0-34.0); MEAN CORPUSCULAR HGB CONC 35.1 g/dL (33.0-35.0); MEAN CORPUSCULAR VOLUME 90.2 fL (80.0-100.0); MEAN PLATELET VOLUME 9.7 fL (7.4-11.0); MONOCYTES # (AUTO) 0.6 x10^3/uL (0.3-0.8); MONOCYTES % (AUTO) 11.1 % (0.0-13.0); NEUTROPHILS # (AUTO) 3.5 x10^3/uL (2.2-4.8); NEUTROPHILS % (AUTO) 68.1 % (42.0-75.0); RED BLOOD COUNT 3.12 X10^6/uL (4.7-6.0); RED CELL DISTRIBUTION WIDTH 14.2 % (11.6-16.5); WHITE BLOOD COUNT 5.2 X10^3/uL (3.6-10.0)
[2022-01-28 07:19] LABS: ALANINE AMINOTRANSFERASE 36 Units/L (12-78); ALBUMIN 2.4 g/dL (3.4-5.0); ALKALINE PHOSPHATASE 61 Units/L (46-116); ASPARTATE AMINO TRANSFERASE 38 Units/L (15-37); BLOOD UREA NITROGEN 44 mg/dL (7-18); CALCIUM 7.9 mg/dL (8.5-10.1); CARBON DIOXIDE 19.4 mmol/L (21-32); CHLORIDE 109 mmol/L (98-107); COR CA(FOR HYPOALB) 9.2 mg/dL (8.5-10.1); CREATININE 4.81 mg/dL (0.70-1.30); SODIUM 139 mmol/L (136-145); TOTAL PROTEIN 5.4 g/dL (6.4-8.2); eGFR NON BLACK RACES 13 (>60)
[2022-01-28] MEDS: AVODART PO SCH (09:02)
[2022-01-28] MEDS: FLOMAX PO SCH ×2 (09:02→20:57)
[2022-01-28] MEDS: NAMENDA TAB 10 MG PO SCH ×2 (09:02→20:58)
[2022-01-28] MEDS: NORVASC TAB 5 MG PO SCH (09:02)
[2022-01-28] MEDS: LOVENOX INJ 30 MG SYR SC SCH (09:03)
[2022-01-28] MEDS: PATIENT'S HOME MEDICATION TD SCH (09:05)
[2022-01-28] MEDS: ALPHAGAN-P OPHTH 1 DOSE OP SCH ×2 (09:05→21:14)
[2022-01-28] MEDS: SILODOSIN 8 MG PO SCH (09:06)
--- NOTE | 2022-01-28 10:34 | PCM.PROG ---
Progress Note Progress Note for Day of Date of Exam: 01/28/22 Subjective Subjective: IS CURRENTLY INPATIENT STATUS FOR TREATMENT OF ACUTE RENAL FAILURE, RECENT FALL, AND GENERALIZED WEAKNESS. TODAY, HE IS ALERT AND ORIENTED, SITTING UP IN CHAIR ON MORNING ROUNDS. HE CONTINUES WITH COMPLAINTS OF GENERALIZED WEAKNESS. HE CONTINUES TO HAVE SHORTNESS OF BREATH, BUT REPORTS SLIGHT IMPROVEMENT THIS MORNING. HIS DAUGHTER REPORTS THAT HE HAS HAD SOME CONFUSION THROUGHOUT THE NIGHT. SHE ALSO REPORTS AN UNSTEADY GAIT ON AMBULATION. ON EXAMINATION, HEART IS REGULAR IN RATE AND RHYTHM. BILATERAL LUNGS ARE NOTED WITH DIMINISHED LUNG SOUNDS THROUGHOUT. ABDOMEN IS ROUND, SOFT, AND NON-TENDER WITH NORMAL BOWEL SOUNDS NOTED IN ALL QUADRANTS. BILATERAL LOWER EXTREMITIES ARE NOTED WITH 1+ PITTING EDEMA. HIS VITALS THIS MORNING ARE: 98.3-80-20-96%-171/89. LABS WERE OBTAINED. WBC 7.7, RBC 3.49, HGB 11.1, HCT 31.5, PLT COUNT 177, SODIUM 139, POTASSIUM 3.3, CHLORIDE 107, CARBON DIOXIDE 18.6, BUN 40, CREATININE 4.44, GFR 14, GLUCOSE 91, CALCIUM 8.2, AST 30, ALT 24, ALK PHOS 67, BNP 313, TOTAL PROTEIN 6.0, ALBUMIN 2.7. URINE CULTURE IS PENDING. A RENAL ULTRASOUND WAS OB AINED YESTERDAY AND REVEALED: 1. Increased renal echotexture worrisome for medical renal disease. 2. No evidence of hydronephrosis or obstructive uropathy. 3. Large left upper pole renal cyst. 4. Prostate hypertrophy and possible bladder outlet obstruction. A CHEST XRAY WAS OBTAINED THIS MORNING AND REVEALED: Heart size is now normal. Tammi are normal. No congestive heart failure is noted. No acute alveolar infiltrates are identified. Right hemidiaphragm remains elevated. Bony thorax is unremarkable. HE IS CURRENTLY RECEIVING NORMAL SALINE AT 30 ML/HR, LOVENOX 30MG SC DAILY, AMLODIPINE 10MG DAILY, AND HIS HOME MEDICATIONS WERE RESUMED. TODAY, WE WILL DISCONTINUE THE PROSCAR AND START FLOMAX 0.4MG PO BID, AND AVODART 0.5MG PO DAILY. WE WILL OBTAIN AN ECHO. PHYSICAL THERAPY HAS BEEN WORKING WITH PATIENT DAILY AND FEEL THAT HE WOULD BENEFIT FROM CONTINUED PT SERVICES. PATIENT APPARTENTLY LIVES AT HOME WITH HIS ELDERLY FAMILY MEMBER. FAMILY IS REQUESTING SHORT TERM PLACEMENT FOR PHYSICAL TH ERAPY AND REHAB. OTHERWISE, WE WILL FOLLOW-UP WITH AM LABS AND CHEST XRAY AND CONTINUE TO MONITOR. TIME SPENT ON CLINICAL ASSESSMENT, REVIEWING LABS AND IMAGING, DECISION MAKING, AND DOCUMENTATION GREATER THAN 45 MINUTES. Monday, 28 January 2022 Patient is resting in bed this morning with no new complaints. He rested well last night and is feeling better this morning. This time we are still awaiting short-term physical therapy rehab placement. Continue his current treatment at this time with no new changes. Past Medical Family Social History Past Med/Fam/Surg Hx: No changes since H&P Allergies: Allergies poison oak extract Allergy (Verified 12/11/18 14:33) Review of Systems ROS: No change since H&P Vital Signs and I&O's Vital Signs: Temperature 98.6 F Pulse Rate [Left Brachial] 91 Pulse Rate 70 Respiratory Rate 18 Blood Pressure [Left Arm] 142/77 Blood Pressure 135/74 O2 Sat by Pulse Oximetry 93 Intake and Output: Intake & Output 01/25/22 01/26/22 01/27/22 01/28/22 11:59 11:59 11:59 11:59 Intake Total 2203 / 2203 2361 / 2361 2333 / 2333 1439 / 1439 Output Total 200 / 200 Balance 2203 / 2203 2361 / 2361 2133 / 2133 1439 / 1439 Physical Exam Oriented: Person Eyes: Normal Ear: Normal Nose: Normal Throat: Normal Respiratory: Generalized and Diminished Cardiovascular: Normal and Edema (1+ PITTING EDEMA BILATERAL LOWER EXTREMITIES ) : Normal Auscultation: Bowel Sounds: Normal Tenderness: Normal Skin: Decreased Turgur Musculoskeletal: Back:Lumbar Mood Description: Calm Affect: Flat Speech Pattern: Clear and Appropriate Laboratory and Diagnostics Result Diagrams: 01/28/22 06:08 01/28/22 06:08 Labs: 01/25/22 03:20 Urine,Clean Catch Urine Culture - Final Laboratory WBC 5.2 X10^3/uL (3.6-10.0) 01/28/22 06:08 RBC 3.12 X10^6/uL (4.7-6.0) L 01/28/22 06:08 Hgb 9.9 g/dL (13.5-18.0) L 01/28/22 06:08 Hct 28.1 % (42.0-54.0) L 01/28/22 06:08 MCV 90.2 fL (80.0-100.0) 01/28/22 06:08 MCH 31.6 pg (27.0-34.0) 01/28/22 06:08 MCHC 35.1 g/dL (33.0-35.0) H 01/28/22 06:08 RDW 14.2 % (11.6-16.5) 01/28/22 06:08 Plt Count 186 X10^3/uL (150.0-450.0) 01/28/22 06:08 MPV 9.7 fL (7.4-11.0) 01/28/22 06:08 Neut % (Auto) 68.1 % (42.0-75.0) 01/28/22 06:08 Lymph % (Auto) 15.1 % (21.0-51.0) L 01/28/22 06:08 [place] % (Auto) 11.1 % (0.0-13.0) 01/28/22 06:08 Eos % (Auto) 5.2 % (0.9-2.9) H 01/28/22 06:08 Baso % (Auto) 0.5 % (0.2-1.0) 01/28/22 06:08 Neut # (Auto) 3.5 x10^3/uL (2.2-4.8) 01/28/22 06:08 Lymph # (Auto) 0.8 X10^3/uL (1.3-2.9) L 01/28/22 06:08 [place] # (Auto) 0.6 x10^3/uL (0.3-0.8) 01/28/22 06:08 Eos # (Auto) 0.3 x10^3/uL (0.0-0.2) H 01/28/22 06:08 Baso # (Auto) 0.0 X10^3/uL (0.0-0.1) 01/28/22 06:08 Absolute Nucleated RBC 0.1 /100WBC 01/28/22 06:08 Sodium 139 mmol/L (136-145) 01/28/22 06:08 Corrected Sodium TNP 01/28/22 06:08 Potassium 3.5 mmol/L (3.5-5.1) 01/28/22 06:08 Chloride 109 mmol/L (98-107) H 01/28/22 06:08 Carbon Dioxide 19.4 mmol/L (21-32) L 01/28/22 06:08 BUN 44 mg/dL (7-18) H 01/28/22 06:08 Creatinine 4.81 mg/dL (0.70-1.30) H 01/28/22 06:08 Est GFR (MDRD) Af Amer 15 (>60) L 01/28/22 06:08 Est GFR (MDRD) Non-Af 13 (>60) L 01/28/22 06:08 Glucose 87 mg/dL (65-99) 01/28/22 06:08 Calcium 7.9 mg/dL (8.5-10.1) L 01/28/22 06:08 Corrected Calcium 9.2 mg/dL (8.5-10.1) 01/28/22 06:08 Magnesium 2.0 mg/dL (2.0-2.9) 01/27/22 05:06 Total Bilirubin 0.30 mg/dL (0.2-1.0) 01/28/22 06:08 AST 38 Units/L (15-37) H 01/28/22 06:08 ALT 36 Units/L (12-78) 01/28/22 06:08 Alkaline Phosphatase 61 Units/L (46-116) 01/28/22 06:08 B-Natriuretic Peptide 149 pg/mL (0-79) H 01/28/22 06:08 Total Protein 5.4 g/dL (6.4-8.2) L 01/28/22 06:08 Albumin 2.4 g/dL (3.4-5.0) L 01/28/22 06:08 Globulin 3.0 g/dL (2.5-4.5) 01/28/22 06:08 Albumin/Globulin Ratio 0.8 Ratio (1.1-2.1) L 01/28/22 06:08 TSH 3rd Generation 4.342 uIU/mL (0.358-3.74) H 01/22/22 12:56 Specimen Type Clean catch urine 01/25/22 03:20 Urine Color Pale yellow (YELLOW) 01/25/22 03:20 Urine Appearance Clear (CLEAR) 01/25/22 03:20 Urine pH 6.0 (5.0 - 8.0) 01/25/22 03:20 Ur Specific [place] 1.020 (1.000-1.030) 01/25/22 03:20 Urine Protein 4+ (NEGATIVE) 01/25/22 03:20 Urine Glucose (UA) 3+ (NEGATIVE) 01/25/22 03:20 Urine Ketones Negative (NEGATIVE) 01/25/22 03:20 Urine Blood 3+ (NEGATIVE) 01/25/22 03:20 Urine Nitrite Negative (NEGATIVE) 01/25/22 03:20 Urine Bilirubin Negative (NEGATIVE) 01/25/22 03:20 Urine Urobilinogen Normal (NORMAL) 01/25/22 03:20 Ur Leukocyte Esterase Negative (NEGATIVE) 01/25/22 03:20 Urine RBC 0-2 /HPF (0-3) 01/25/22 03:20 Urine WBC None seen /HPF (0-5) 01/25/22 03:20 Ur Squamous Epith Cells Rare /HPF (NEGATIVE) 01/25/22 03:20 Urine Bacteria Negative /HPF (NEGATIVE) 01/25/22 03:20 Ur Culture Indicated? Yes/culture set up 01/25/22 03:20 Plan (1) Acute renal failure: Status: Acute Qualifiers: Acute renal failure type: unspecified Qualified Code(s): N17.9 - Acute kidney failure, unspecified Plan: NORMAL SALINE AT 20 ML/HR, LOVENOX 30MG SC DAILY, FLOMAX 0.4MG PO BID, AVODART 0.5MG PO DAILY, DISCONTINUE PROSCAR, CONTINUE OTHER HOME MEDICATIONS, PHYSICAL THERAPY (2) Bladder outlet obstruction: Status: Suspected (3) Fall: Status: Acute Qualifiers: Encounter type: initial encounter Qualified Code(s): W19.XXXA - Unspecified fall, initial encounter (4) Generalized weakness: Status: Acute (5) AMS (altered mental status): Status: Acute Qualifiers: Altered mental status type: transient alteration of awareness Qualified Code(s): R40.4 - Transient alteration of awareness (6) Hypertension: Status: Chronic Qualifiers: Hypertension type: primary hypertension Qualified Code(s): I10 - Essential (primary) hypertension (7) Dementia: Status: Chronic Qualifiers: Dementia behavioral or psychological symptom: unspecified whether behavioral, psychotic, or mood disturbance or anxiety Dementia severity: unspecified severity Dementia type: vascular dementia Qualified Code(s): F01.50 - Vascular dementia, unspecified severity, without behavioral disturbance, psychotic disturbance, mood disturbance, and anxiety (8) Hypothyroidism: Status: Chronic Qualifiers: Hypothyroidism type: acquired Qualified Code(s): E03.9 - Hypothyroidism, unspecified (9) BPH (benign prostatic hyperplasia): Status: Acute
[2022-01-28] MEDS: NS 1,000 ML IV 1,000 ML IV SCH (16:17)
[2022-01-28] MEDS: CRESTOR TAB 10 MG PO SCH (20:58)
[2022-01-28] MEDS: XALATAN OP SCH (21:02)
[2022-01-29] MEDS: NS 1,000 ML IV 1,000 ML IV SCH ×3 (03:58→20:55)
[2022-01-29] MEDS: SYNTHROID 75 mcg TAB PO SCH (05:48)
[2022-01-29] MEDS: ALPHAGAN-P OPHTH 1 DOSE OP SCH ×3 (05:49→20:52)
[2022-01-29 06:24] LABS: BASOPHILS % (AUTO) 0.5 % (0.2-1.0); EOSINOPHILS # (AUTO) 0.3 x10^3/uL (0.0-0.2); HEMATOCRIT 29.2 % (42.0-54.0); HEMOGLOBIN 10.1 g/dL (13.5-18.0); LYMPHOCYTES # (AUTO) 0.7 X10^3/uL (1.3-2.9); LYMPHOCYTES % (AUTO) 12.3 % (21.0-51.0); MEAN CORPUSCULAR HEMOGLOBIN 31.7 pg (27.0-34.0); MEAN CORPUSCULAR HGB CONC 34.5 g/dL (33.0-35.0); MEAN PLATELET VOLUME 9.6 fL (7.4-11.0); MONOCYTES # (AUTO) 0.6 x10^3/uL (0.3-0.8); MONOCYTES % (AUTO) 10.6 % (0.0-13.0); NEUTROPHILS # (AUTO) 3.8 x10^3/uL (2.2-4.8); NEUTROPHILS % (AUTO) 71.6 % (42.0-75.0); RED BLOOD COUNT 3.17 X10^6/uL (4.7-6.0); RED CELL DISTRIBUTION WIDTH 14.1 % (11.6-16.5); WHITE BLOOD COUNT 5.3 X10^3/uL (3.6-10.0)
[2022-01-29 06:32] LABS: ALANINE AMINOTRANSFERASE 42 Units/L (12-78); ALBUMIN 2.5 g/dL (3.4-5.0); ALKALINE PHOSPHATASE 65 Units/L (46-116); ASPARTATE AMINO TRANSFERASE 40 Units/L (15-37); BLOOD UREA NITROGEN 45 mg/dL (7-18); CALCIUM 8.2 mg/dL (8.5-10.1); CARBON DIOXIDE 19.6 mmol/L (21-32); CHLORIDE 110 mmol/L (98-107); COR CA(FOR HYPOALB) 9.4 mg/dL (8.5-10.1); CREATININE 4.78 mg/dL (0.70-1.30); SODIUM 141 mmol/L (136-145); TOTAL PROTEIN 5.6 g/dL (6.4-8.2); eGFR NON BLACK RACES 13 (>60)
--- NOTE | 2022-01-29 07:27 | RAD ---
HISTORYAcute renal failureSTUDYPortable AP [id number]/2022FINDINGSNo significant change in appearance of the chest. Heart size remains normal with moderate elevation of right diaphragm and minimal compressive atelectasis immediately adjacent. Air-containing bowel segments are interposed between the right diaphragm and the liver. There is no evidence for pneumonia, pleural effusion or pulmonary edema.IMPRESSIONNo interval change or new abnormality demonstrated.Electronically signed by: ROYCE BAILEY (Jan 29, 2022 07:26:10)
[2022-01-29] MEDS: NAMENDA TAB 10 MG PO SCH ×2 (10:08→20:53)
[2022-01-29] MEDS: FLOMAX PO SCH ×2 (10:08→20:52)
[2022-01-29] MEDS: AVODART PO SCH (10:08)
[2022-01-29] MEDS: NORVASC TAB 5 MG PO SCH (10:09)
[2022-01-29] MEDS: LOVENOX INJ 30 MG SYR SC SCH (10:10)
[2022-01-29] MEDS: PATIENT'S HOME MEDICATION TD SCH (10:16)
[2022-01-29] MEDS: SILODOSIN 8 MG PO SCH (10:26)
--- NOTE | 2022-01-29 14:02 | PCM.PROG ---
Progress Note Progress Note for Day of Date of Exam: 01/29/22 Subjective Subjective: IS CURRENTLY INPATIENT STATUS FOR TREATMENT OF ACUTE RENAL FAILURE, RECENT FALL, AND GENERALIZED WEAKNESS. TODAY, HE IS ALERT AND ORIENTED, SITTING UP IN CHAIR ON MORNING ROUNDS. HE CONTINUES WITH COMPLAINTS OF GENERALIZED WEAKNESS. HE CONTINUES TO HAVE SHORTNESS OF BREATH, BUT REPORTS SLIGHT IMPROVEMENT THIS MORNING. HIS DAUGHTER REPORTS THAT HE HAS HAD SOME CONFUSION THROUGHOUT THE NIGHT. SHE ALSO REPORTS AN UNSTEADY GAIT ON AMBULATION. ON EXAMINATION, HEART IS REGULAR IN RATE AND RHYTHM. BILATERAL LUNGS ARE NOTED WITH DIMINISHED LUNG SOUNDS THROUGHOUT. ABDOMEN IS ROUND, SOFT, AND NON-TENDER WITH NORMAL BOWEL SOUNDS NOTED IN ALL QUADRANTS. BILATERAL LOWER EXTREMITIES ARE NOTED WITH 1+ PITTING EDEMA. HIS VITALS THIS MORNING ARE: 98.3-80-20-96%-171/89. LABS WERE OBTAINED. WBC 7.7, RBC 3.49, HGB 11.1, HCT 31.5, PLT COUNT 177, SODIUM 139, POTASSIUM 3.3, CHLORIDE 107, CARBON DIOXIDE 18.6, BUN 40, CREATININE 4.44, GFR 14, GLUCOSE 91, CALCIUM 8.2, AST 30, ALT 24, ALK PHOS 67, BNP 313, TOTAL PROTEIN 6.0, ALBUMIN 2.7. URINE CULTURE IS PENDING. A RENAL ULTRASOUND WAS OB AINED YESTERDAY AND REVEALED: 1. Increased renal echotexture worrisome for medical renal disease. 2. No evidence of hydronephrosis or obstructive uropathy. 3. Large left upper pole renal cyst. 4. Prostate hypertrophy and possible bladder outlet obstruction. A CHEST XRAY WAS OBTAINED THIS MORNING AND REVEALED: Heart size is now normal. Tmami are normal. No congestive heart failure is noted. No acute alveolar infiltrates are identified. Right hemidiaphragm remains elevated. Bony thorax is unremarkable. HE IS CURRENTLY RECEIVING NORMAL SALINE AT 30 ML/HR, LOVENOX 30MG SC DAILY, AMLODIPINE 10MG DAILY, AND HIS HOME MEDICATIONS WERE RESUMED. TODAY, WE WILL DISCONTINUE THE PROSCAR AND START FLOMAX 0.4MG PO BID, AND AVODART 0.5MG PO DAILY. WE WILL OBTAIN AN ECHO. PHYSICAL THERAPY HAS BEEN WORKING WITH PATIENT DAILY AND FEEL THAT HE WOULD BENEFIT FROM CONTINUED PT SERVICES. PATIENT APPARTENTLY LIVES AT HOME WITH HIS ELDERLY FAMILY MEMBER. FAMILY IS REQUESTING SHORT TERM PLACEMENT FOR PHYSICAL TH ERAPY AND REHAB. OTHERWISE, WE WILL FOLLOW-UP WITH AM LABS AND CHEST XRAY AND CONTINUE TO MONITOR. TIME SPENT ON CLINICAL ASSESSMENT, REVIEWING LABS AND IMAGING, DECISION MAKING, AND DOCUMENTATION GREATER THAN 45 MINUTES. 28 January 2022 Patient is resting in bed this morning with no new complaints. He rested well last night and is feeling better this morning. This time we are still awaiting short-term physical therapy rehab placement. Continue his current treatment at this time with no new changes. 29 January 2022 Patient is sitting up in bed this morning, more alert and awake. He had no problems through the night or yesterday. He is tolerating physical therapy well and voices no new complaints this morning. Blood pressure slightly elevated however his vital signs remained stable his labs are stable overall and his creatinine is also stable at 4.74. He is currently awaiting short-term physical therapy rehab placement next week. Past Medical Family Social History Past Med/Fam/Surg Hx: No changes since H&P Allergies: Allergies poison oak extract Allergy (Verified 12/11/18 14:33) Review of Systems ROS: No change since H&P Vital Signs and I&O's Vital Signs: Temperature 98.1 F Pulse Rate [Left Brachial] 76 Pulse Rate 83 Respiratory Rate 20 Blood Pressure [Left Arm] 153/75 Blood Pressure 135/74 O2 Sat by Pulse Oximetry 96 Intake and Output: Intake & Output 01/27/22 01/28/22 01/29/22 01/30/22 11:59 11:59 11:59 11:59 Intake Total 2333 / 2333 1439 / 1439 1591 / 1591 Output Total 200 / 200 Balance 2133 / 2133 1439 / 1439 1591 / 1591 Physical Exam Oriented: Person Eyes: Normal Ear: Normal Nose: Normal Throat: Normal Respiratory: Generalized and Diminished Cardiovascular: Normal and Edema (1+ PITTING EDEMA BILATERAL LOWER EXTREMITIES ) : Normal Auscultation: Bowel Sounds: Normal Tenderness: Normal Skin: Decreased Turgur Musculoskeletal: Back:Lumbar Mood Description: Calm Affect: Flat Speech Pattern: Clear and Appropriate Laboratory and Diagnostics Result Diagrams: 01/29/22 05:23 01/29/22 05:23 Labs: 01/28/22 13:05 Urine,Clean Catch Urine Culture - Preliminary 01/25/22 03:20 Urine,Clean Catch Urine Culture - Final Laboratory WBC 5.3 X10^3/uL (3.6-10.0) 01/29/22 05:23 RBC 3.17 X10^6/uL (4.7-6.0) L 01/29/22 05:23 Hgb 10.1 g/dL (13.5-18.0) L 01/29/22 05:23 Hct 29.2 % (42.0-54.0) L 01/29/22 05:23 MCV 92.0 fL (80.0-100.0) 01/29/22 05:23 MCH 31.7 pg (27.0-34.0) 01/29/22 05:23 MCHC 34.5 g/dL (33.0-35.0) 01/29/22 05:23 RDW 14.1 % (11.6-16.5) 01/29/22 05:23 Plt Count 198 X10^3/uL (150.0-450.0) 01/29/22 05:23 MPV 9.6 fL (7.4-11.0) 01/29/22 05:23 Neut % (Auto) 71.6 % (42.0-75.0) 01/29/22 05:23 Lymph % (Auto) 12.3 % (21.0-51.0) L 01/29/22 05:23 [place] % (Auto) 10.6 % (0.0-13.0) 01/29/22 05:23 Eos % (Auto) 5.0 % (0.9-2.9) H 01/29/22 05:23 Baso % (Auto) 0.5 % (0.2-1.0) 01/29/22 05:23 Neut # (Auto) 3.8 x10^3/uL (2.2-4.8) 01/29/22 05:23 Lymph # (Auto) 0.7 X10^3/uL (1.3-2.9) L 01/29/22 05:23 [place] # (Auto) 0.6 x10^3/uL (0.3-0.8) 01/29/22 05:23 Eos # (Auto) 0.3 x10^3/uL (0.0-0.2) H 01/29/22 05:23 Baso # (Auto) 0.0 X10^3/uL (0.0-0.1) 01/29/22 05:23 Absolute Nucleated RBC 0.0 /100WBC 01/29/22 05:23 Sodium 141 mmol/L (136-145) 01/29/22 05:23 Corrected Sodium TNP 01/29/22 05:23 Potassium 3.7 mmol/L (3.5-5.1) 01/29/22 05:23 Chloride 110 mmol/L (98-107) H 01/29/22 05:23 Carbon Dioxide 19.6 mmol/L (21-32) L 01/29/22 05:23 BUN 45 mg/dL (7-18) H 01/29/22 05:23 Creatinine 4.78 mg/dL (0.70-1.30) H 01/29/22 05:23 Est GFR (MDRD) Af Amer 15 (>60) L 01/29/22 05:23 Est GFR (MDRD) Non-Af 13 (>60) L 01/29/22 05:23 Glucose 86 mg/dL (65-99) 01/29/22 05:23 Calcium 8.2 mg/dL (8.5-10.1) L 01/29/22 05:23 Corrected Calcium 9.4 mg/dL (8.5-10.1) 01/29/22 05:23 Magnesium 2.0 mg/dL (2.0-2.9) 01/27/22 05:06 Total Bilirubin 0.40 mg/dL (0.2-1.0) 01/29/22 05:23 AST 40 Units/L (15-37) H 01/29/22 05:23 ALT 42 Units/L (12-78) 01/29/22 05:23 Alkaline Phosphatase 65 Units/L (46-116) 01/29/22 05:23 B-Natriuretic Peptide 182 pg/mL (0-79) H 01/29/22 05:23 Total Protein 5.6 g/dL (6.4-8.2) L 01/29/22 05:23 Albumin 2.5 g/dL (3.4-5.0) L 01/29/22 05:23 Globulin 3.1 g/dL (2.5-4.5) 01/29/22 05:23 Albumin/Globulin Ratio 0.8 Ratio (1.1-2.1) L 01/29/22 05:23 TSH 3rd Generation 4.342 uIU/mL (0.358-3.74) H 01/22/22 12:56 Specimen Type Clean catch urine 01/25/22 03:20 Urine Color Pale yellow (YELLOW) 01/25/22 03:20 Urine Appearance Clear (CLEAR) 01/25/22 03:20 Urine pH 6.0 (5.0 - 8.0) 01/25/22 03:20 Ur Specific [place] 1.020 (1.000-1.030) 01/25/22 03:20 Urine Protein 4+ (NEGATIVE) 01/25/22 03:20 Urine Glucose (UA) 3+ (NEGATIVE) 01/25/22 03:20 Urine Ketones Negative (NEGATIVE) 01/25/22 03:20 Urine Blood 3+ (NEGATIVE) 01/25/22 03:20 Urine Nitrite Negative (NEGATIVE) 01/25/22 03:20 Urine Bilirubin Negative (NEGATIVE) 01/25/22 03:20 Urine Urobilinogen Normal (NORMAL) 01/25/22 03:20 Ur Leukocyte Esterase Negative (NEGATIVE) 01/25/22 03:20 Urine RBC 0-2 /HPF (0-3) 01/25/22 03:20 Urine WBC None seen /HPF (0-5) 01/25/22 03:20 Ur Squamous Epith Cells Rare /HPF (NEGATIVE) 01/25/22 03:20 Urine Bacteria Negative /HPF (NEGATIVE) 01/25/22 03:20 Ur Culture Indicated? Yes/culture set up 01/25/22 03:20 Plan (1) Acute renal failure: Status: Acute Qualifiers: Acute renal failure type: unspecified Qualified Code(s): N17.9 - Acute kidney failure, unspecified Plan: NORMAL SALINE AT 20 ML/HR, LOVENOX 30MG SC DAILY, FLOMAX 0.4MG PO BID, AVODART 0.5MG PO DAILY, DISCONTINUE PROSCAR, CONTINUE OTHER HOME MEDICATIONS, PHYSICAL THERAPY (2) Bladder outlet obstruction: Status: Suspected (3) Fall: Status: Acute Qualifiers: Encounter type: initial encounter Qualified Code(s): W19.XXXA - Unspecified fall, initial encounter (4) Generalized weakness: Status: Acute (5) AMS (altered mental status): Status: Acute Qualifiers: Altered mental status type: transient alteration of awareness Qualified Code(s): R40.4 - Transient alteration of awareness (6) Hypertension: Status: Chronic Qualifiers: Hypertension type: primary hypertension Qualified Code(s): I10 - Essential (primary) hypertension (7) Dementia: Status: Chronic Qualifiers: Dementia behavioral or psychological symptom: unspecified whether behavioral, psychotic, or mood disturbance or anxiety Dementia severity: unspecified severity Dementia type: vascular dementia Qualified Code(s): F01.50 - Vascular dementia, unspecified severity, without behavioral disturbance, psychotic disturbance, mood disturbance, and anxiety (8) Hypothyroidism: Status: Chronic Qualifiers: Hypothyroidism type: acquired Qualified Code(s): E03.9 - Hypothyroidism, unspecified (9) BPH (benign prostatic hyperplasia): Status: Acute
[2022-01-29] MEDS: CRESTOR TAB 10 MG PO SCH (20:53)
[2022-01-29] MEDS: XALATAN OP SCH (20:53)
[2022-01-30] MEDS: SYNTHROID 75 mcg TAB PO SCH (05:31)
[2022-01-30 06:41] LABS: BASOPHILS % (AUTO) 0.6 % (0.2-1.0); EOSINOPHILS # (AUTO) 0.2 x10^3/uL (0.0-0.2); EOSINOPHILS % (AUTO) 3.9 % (0.9-2.9); HEMOGLOBIN 10.2 g/dL (13.5-18.0); LYMPHOCYTES # (AUTO) 0.8 X10^3/uL (1.3-2.9); MEAN CORPUSCULAR HEMOGLOBIN 31.5 pg (27.0-34.0); MEAN CORPUSCULAR HGB CONC 35.1 g/dL (33.0-35.0); MEAN CORPUSCULAR VOLUME 89.8 fL (80.0-100.0); MEAN PLATELET VOLUME 9.6 fL (7.4-11.0); MONOCYTES # (AUTO) 0.5 x10^3/uL (0.3-0.8); MONOCYTES % (AUTO) 8.9 % (0.0-13.0); NEUTROPHILS # (AUTO) 3.7 x10^3/uL (2.2-4.8); NEUTROPHILS % (AUTO) 70.6 % (42.0-75.0); RED BLOOD COUNT 3.23 X10^6/uL (4.7-6.0); WHITE BLOOD COUNT 5.2 X10^3/uL (3.6-10.0)
[2022-01-30 06:58] LABS: ALANINE AMINOTRANSFERASE 47 Units/L (12-78); ALBUMIN 2.5 g/dL (3.4-5.0); ALKALINE PHOSPHATASE 68 Units/L (46-116); ASPARTATE AMINO TRANSFERASE 43 Units/L (15-37); BLOOD UREA NITROGEN 43 mg/dL (7-18); CALCIUM 8.2 mg/dL (8.5-10.1); CARBON DIOXIDE 18.2 mmol/L (21-32); CHLORIDE 109 mmol/L (98-107); COR CA(FOR HYPOALB) 9.4 mg/dL (8.5-10.1); CREATININE 4.86 mg/dL (0.70-1.30); SODIUM 140 mmol/L (136-145); TOTAL PROTEIN 5.7 g/dL (6.4-8.2); eGFR NON BLACK RACES 12 (>60)
--- NOTE | 2022-01-30 07:18 | RAD ---
HISTORYSOB renal failureSTUDYPortable AP chestCOMPARISONDecember 2021FINDINGSNo change in appearance of the chest since 1 day prior. Stable elevation right diaphragm with minimal associated atelectasis. Heart size remains normal with no evidence for developing pneumonia or CHF.IMPRESSIONNo change.Electronically signed by: ROYCE BAILEY (Jan 30, 2022 07:17:32)
[2022-01-30] MEDS: FLOMAX PO SCH ×2 (08:57→20:19)
[2022-01-30] MEDS: NAMENDA TAB 10 MG PO SCH ×2 (08:58→20:20)
[2022-01-30] MEDS: AVODART PO SCH (08:58)
[2022-01-30] MEDS: NORVASC TAB 5 MG PO SCH (08:58)
[2022-01-30] MEDS: NS 1,000 ML IV 1,000 ML IV SCH ×2 (08:59→22:30)
[2022-01-30] MEDS: ALPHAGAN-P OPHTH 1 DOSE OP SCH ×2 (09:01→20:18)
[2022-01-30] MEDS: SILODOSIN 8 MG PO SCH (09:02)
[2022-01-30] MEDS: LOVENOX INJ 30 MG SYR SC SCH (09:03)
[2022-01-30] MEDS: PATIENT'S HOME MEDICATION TD SCH (10:27)
--- NOTE | 2022-01-30 14:02 | PCM.PROG ---
Progress Note Progress Note for Day of Date of Exam: 01/30/22 Subjective Subjective: IS CURRENTLY INPATIENT STATUS FOR TREATMENT OF ACUTE RENAL FAILURE, RECENT FALL, AND GENERALIZED WEAKNESS. TODAY, HE IS ALERT AND ORIENTED, SITTING UP IN CHAIR ON MORNING ROUNDS. HE CONTINUES WITH COMPLAINTS OF GENERALIZED WEAKNESS. HE CONTINUES TO HAVE SHORTNESS OF BREATH, BUT REPORTS SLIGHT IMPROVEMENT THIS MORNING. HIS DAUGHTER REPORTS THAT HE HAS HAD SOME CONFUSION THROUGHOUT THE NIGHT. SHE ALSO REPORTS AN UNSTEADY GAIT ON AMBULATION. ON EXAMINATION, HEART IS REGULAR IN RATE AND RHYTHM. BILATERAL LUNGS ARE NOTED WITH DIMINISHED LUNG SOUNDS THROUGHOUT. ABDOMEN IS ROUND, SOFT, AND NON-TENDER WITH NORMAL BOWEL SOUNDS NOTED IN ALL QUADRANTS. BILATERAL LOWER EXTREMITIES ARE NOTED WITH 1+ PITTING EDEMA. HIS VITALS THIS MORNING ARE: 98.3-80-20-96%-171/89. LABS WERE OBTAINED. WBC 7.7, RBC 3.49, HGB 11.1, HCT 31.5, PLT COUNT 177, SODIUM 139, POTASSIUM 3.3, CHLORIDE 107, CARBON DIOXIDE 18.6, BUN 40, CREATININE 4.44, GFR 14, GLUCOSE 91, CALCIUM 8.2, AST 30, ALT 24, ALK PHOS 67, BNP 313, TOTAL PROTEIN 6.0, ALBUMIN 2.7. URINE CULTURE IS PENDING. A RENAL ULTRASOUND WAS OB AINED YESTERDAY AND REVEALED: 1. Increased renal echotexture worrisome for medical renal disease. 2. No evidence of hydronephrosis or obstructive uropathy. 3. Large left upper pole renal cyst. 4. Prostate hypertrophy and possible bladder outlet obstruction. A CHEST XRAY WAS OBTAINED THIS MORNING AND REVEALED: Heart size is now normal. Tammi are normal. No congestive heart failure is noted. No acute alveolar infiltrates are identified. Right hemidiaphragm remains elevated. Bony thorax is unremarkable. HE IS CURRENTLY RECEIVING NORMAL SALINE AT 30 ML/HR, LOVENOX 30MG SC DAILY, AMLODIPINE 10MG DAILY, AND HIS HOME MEDICATIONS WERE RESUMED. TODAY, WE WILL DISCONTINUE THE PROSCAR AND START FLOMAX 0.4MG PO BID, AND AVODART 0.5MG PO DAILY. WE WILL OBTAIN AN ECHO. PHYSICAL THERAPY HAS BEEN WORKING WITH PATIENT DAILY AND FEEL THAT HE WOULD BENEFIT FROM CONTINUED PT SERVICES. PATIENT APPARTENTLY LIVES AT HOME WITH HIS ELDERLY FAMILY MEMBER. FAMILY IS REQUESTING SHORT TERM PLACEMENT FOR PHYSICAL TH ERAPY AND REHAB. OTHERWISE, WE WILL FOLLOW-UP WITH AM LABS AND CHEST XRAY AND CONTINUE TO MONITOR. TIME SPENT ON CLINICAL ASSESSMENT, REVIEWING LABS AND IMAGING, DECISION MAKING, AND DOCUMENTATION GREATER THAN 45 MINUTES. 28 January 2022 Patient is resting in bed this morning with no new complaints. He rested well last night and is feeling better this morning. This time we are still awaiting short-term physical therapy rehab placement. Continue his current treatment at this time with no new changes. 29 January 2022 Patient is sitting up in bed this morning, more alert and awake. He had no problems through the night or yesterday. He is tolerating physical therapy well and voices no new complaints this morning. Blood pressure slightly elevated however his vital signs remained stable his labs are stable overall and his creatinine is also stable at 4.74. He is currently awaiting short-term physical therapy rehab placement next week. 30 January 2022 Patient is lying in bed this morning. He is resting and has no new complaints. He did well last night with no new problems noted. We are currently still awaiting short-term physical therapy rehab placement next week. No new changes to treatment. Past Medical Family Social History Past Med/Fam/Surg Hx: No changes since H&P Allergies: Allergies poison oak extract Allergy (Verified 12/11/18 14:33) Review of Systems ROS: No change since H&P Vital Signs and I&O's Vital Signs: Temperature 98.2 F Pulse Rate [Left Brachial] 78 Pulse Rate 83 Respiratory Rate 20 Blood Pressure [Left Arm] 153/74 Blood Pressure 135/74 O2 Sat by Pulse Oximetry 93 Intake and Output: Intake & Output 01/28/22 01/29/22 01/30/22 01/31/22 11:59 11:59 11:59 11:59 Intake Total 1439 / 1439 1591 / 1591 2069 Balance 1439 / 1439 1591 / 1591 2069 Physical Exam Oriented: Person Eyes: Normal Ear: Normal Nose: Normal Throat: Normal Respiratory: Generalized and Diminished Cardiovascular: Normal and Edema (1+ PITTING EDEMA BILATERAL LOWER EXTREMITIES ) : Normal Auscultation: Bowel Sounds: Normal Tenderness: Normal Skin: Decreased Turgur Musculoskeletal: Back:Lumbar Mood Description: Calm Affect: Flat Speech Pattern: Clear and Appropriate Laboratory and Diagnostics Result Diagrams: 01/30/22 05:24 01/30/22 05:24 Labs: 01/28/22 13:05 Urine,Clean Catch Urine Culture - Final 01/25/22 03:20 Urine,Clean Catch Urine Culture - Final Laboratory WBC 5.2 X10^3/uL (3.6-10.0) 01/30/22 05:24 RBC 3.23 X10^6/uL (4.7-6.0) L 01/30/22 05:24 Hgb 10.2 g/dL (13.5-18.0) L 01/30/22 05:24 Hct 29.0 % (42.0-54.0) L 01/30/22 05:24 MCV 89.8 fL (80.0-100.0) 01/30/22 05:24 MCH 31.5 pg (27.0-34.0) 01/30/22 05:24 MCHC 35.1 g/dL (33.0-35.0) H 01/30/22 05:24 RDW 14.0 % (11.6-16.5) 01/30/22 05:24 Plt Count 220 X10^3/uL (150.0-450.0) 01/30/22 05:24 MPV 9.6 fL (7.4-11.0) 01/30/22 05:24 Neut % (Auto) 70.6 % (42.0-75.0) 01/30/22 05:24 Lymph % (Auto) 16.0 % (21.0-51.0) L 01/30/22 05:24 [place] % (Auto) 8.9 % (0.0-13.0) 01/30/22 05:24 Eos % (Auto) 3.9 % (0.9-2.9) H 01/30/22 05:24 Baso % (Auto) 0.6 % (0.2-1.0) 01/30/22 05:24 Neut # (Auto) 3.7 x10^3/uL (2.2-4.8) 01/30/22 05:24 Lymph # (Auto) 0.8 X10^3/uL (1.3-2.9) L 01/30/22 05:24 [place] # (Auto) 0.5 x10^3/uL (0.3-0.8) 01/30/22 05:24 Eos # (Auto) 0.2 x10^3/uL (0.0-0.2) 01/30/22 05:24 Baso # (Auto) 0.0 X10^3/uL (0.0-0.1) 01/30/22 05:24 Absolute Nucleated RBC 0.0 /100WBC 01/30/22 05:24 Sodium 140 mmol/L (136-145) 01/30/22 05:24 Corrected Sodium TNP 01/30/22 05:24 Potassium 3.5 mmol/L (3.5-5.1) 01/30/22 05:24 Chloride 109 mmol/L (98-107) H 01/30/22 05:24 Carbon Dioxide 18.2 mmol/L (21-32) L 01/30/22 05:24 BUN 43 mg/dL (7-18) H 01/30/22 05:24 Creatinine 4.86 mg/dL (0.70-1.30) H 01/30/22 05:24 Est GFR (MDRD) Af Amer 15 (>60) L 01/30/22 05:24 Est GFR (MDRD) Non-Af 12 (>60) L 01/30/22 05:24 Glucose 84 mg/dL (65-99) 01/30/22 05:24 Calcium 8.2 mg/dL (8.5-10.1) L 01/30/22 05:24 Corrected Calcium 9.4 mg/dL (8.5-10.1) 01/30/22 05:24 Magnesium 2.0 mg/dL (2.0-2.9) 01/27/22 05:06 Total Bilirubin 0.30 mg/dL (0.2-1.0) 01/30/22 05:24 AST 43 Units/L (15-37) H 01/30/22 05:24 ALT 47 Units/L (12-78) 01/30/22 05:24 Alkaline Phosphatase 68 Units/L (46-116) 01/30/22 05:24 B-Natriuretic Peptide 186 pg/mL (0-79) H 01/30/22 05:24 Total Protein 5.7 g/dL (6.4-8.2) L 01/30/22 05:24 Albumin 2.5 g/dL (3.4-5.0) L 01/30/22 05:24 Globulin 3.2 g/dL (2.5-4.5) 01/30/22 05:24 Albumin/Globulin Ratio 0.8 Ratio (1.1-2.1) L 01/30/22 05:24 TSH 3rd Generation 4.342 uIU/mL (0.358-3.74) H 01/22/22 12:56 Specimen Type Clean catch urine 01/25/22 03:20 Urine Color Pale yellow (YELLOW) 01/25/22 03:20 Urine Appearance Clear (CLEAR) 01/25/22 03:20 Urine pH 6.0 (5.0 - 8.0) 01/25/22 03:20 Ur Specific [place] 1.020 (1.000-1.030) 01/25/22 03:20 Urine Protein 4+ (NEGATIVE) 01/25/22 03:20 Urine Glucose (UA) 3+ (NEGATIVE) 01/25/22 03:20 Urine Ketones Negative (NEGATIVE) 01/25/22 03:20 Urine Blood 3+ (NEGATIVE) 01/25/22 03:20 Urine Nitrite Negative (NEGATIVE) 01/25/22 03:20 Urine Bilirubin Negative (NEGATIVE) 01/25/22 03:20 Urine Urobilinogen Normal (NORMAL) 01/25/22 03:20 Ur Leukocyte Esterase Negative (NEGATIVE) 01/25/22 03:20 Urine RBC 0-2 /HPF (0-3) 01/25/22 03:20 Urine WBC None seen /HPF (0-5) 01/25/22 03:20 Ur Squamous Epith Cells Rare /HPF (NEGATIVE) 01/25/22 03:20 Urine Bacteria Negative /HPF (NEGATIVE) 01/25/22 03:20 Ur Culture Indicated? Yes/culture set up 01/25/22 03:20 Plan (1) Acute renal failure: Status: Acute Qualifiers: Acute renal failure type: unspecified Qualified Code(s): N17.9 - Acute kidney failure, unspecified Plan: NORMAL SALINE AT 20 ML/HR, LOVENOX 30MG SC DAILY, FLOMAX 0.4MG PO BID, AVODART 0.5MG PO DAILY, DISCONTINUE PROSCAR, CONTINUE OTHER HOME MEDICATIONS, PHYSICAL THERAPY (2) Bladder outlet obstruction: Status: Suspected (3) Fall: Status: Acute Qualifiers: Encounter type: initial encounter Qualified Code(s): W19.XXXA - Unspecified fall, initial encounter (4) Generalized weakness: Status: Acute (5) AMS (altered mental status): Status: Acute Qualifiers: Altered mental status type: transient alteration of awareness Qualified Code(s): R40.4 - Transient alteration of awareness (6) Hypertension: Status: Chronic Qualifiers: Hypertension type: primary hypertension Qualified Code(s): I10 - Essential (primary) hypertension (7) Dementia: Status: Chronic Qualifiers: Dementia behavioral or psychological symptom: unspecified whether behavioral, psychotic, or mood disturbance or anxiety Dementia severity: unspecified severity Dementia type: vascular dementia Qualified Code(s): F01.50 - Vascular dementia, unspecified severity, without behavioral disturbance, psychotic disturbance, mood disturbance, and anxiety (8) Hypothyroidism: Status: Chronic Qualifiers: Hypothyroidism type: acquired Qualified Code(s): E03.9 - Hypothyroidism, unspecified (9) BPH (benign prostatic hyperplasia): Status: Acute
[2022-01-30] MEDS: CRESTOR TAB 10 MG PO SCH (20:19)
[2022-01-30] MEDS: XALATAN OP SCH (20:22)
[2022-01-30] MEDS: RESTORIL CAP 15 MG PO PRN (20:53)
[2022-01-31] MEDS: SYNTHROID 75 mcg TAB PO SCH (05:49)
[2022-01-31 06:17] LABS: BASOPHILS # (AUTO) 0.1 X10^3/uL (0.0-0.1); BASOPHILS % (AUTO) 1.2 % (0.2-1.0); EOSINOPHILS # (AUTO) 0.1 x10^3/uL (0.0-0.2); EOSINOPHILS % (AUTO) 2.9 % (0.9-2.9); HEMATOCRIT 28.2 % (42.0-54.0); HEMOGLOBIN 9.8 g/dL (13.5-18.0); LYMPHOCYTES # (AUTO) 0.8 X10^3/uL (1.3-2.9); LYMPHOCYTES % (AUTO) 16.6 % (21.0-51.0); MEAN CORPUSCULAR HEMOGLOBIN 31.6 pg (27.0-34.0); MEAN CORPUSCULAR HGB CONC 34.9 g/dL (33.0-35.0); MEAN CORPUSCULAR VOLUME 90.5 fL (80.0-100.0); MEAN PLATELET VOLUME 9.5 fL (7.4-11.0); MONOCYTES # (AUTO) 0.5 x10^3/uL (0.3-0.8); MONOCYTES % (AUTO) 10.3 % (0.0-13.0); NEUTROPHILS # (AUTO) 3.4 x10^3/uL (2.2-4.8); RED BLOOD COUNT 3.12 X10^6/uL (4.7-6.0); RED CELL DISTRIBUTION WIDTH 14.2 % (11.6-16.5)
[2022-01-31 06:29] LABS: ALANINE AMINOTRANSFERASE 50 Units/L (12-78); ALBUMIN 2.5 g/dL (3.4-5.0); ALKALINE PHOSPHATASE 68 Units/L (46-116); ASPARTATE AMINO TRANSFERASE 42 Units/L (15-37); BLOOD UREA NITROGEN 42 mg/dL (7-18); CALCIUM 8.3 mg/dL (8.5-10.1); CARBON DIOXIDE 18.2 mmol/L (21-32); CHLORIDE 109 mmol/L (98-107); COR CA(FOR HYPOALB) 9.5 mg/dL (8.5-10.1); SODIUM 140 mmol/L (136-145); TOTAL PROTEIN 5.7 g/dL (6.4-8.2); eGFR NON BLACK RACES 12 (>60)
[2022-01-31] MEDS ORDERED: MICRO K EXTEN CAP 10 MEQ PO ONE (08:41)
[2022-01-31] MEDS: NORVASC TAB 5 MG PO SCH (08:54)
[2022-01-31] MEDS: AVODART PO SCH (08:54)
[2022-01-31] MEDS: FLOMAX PO SCH ×2 (08:54→20:08)
[2022-01-31] MEDS: NAMENDA TAB 10 MG PO SCH ×2 (08:54→20:08)
[2022-01-31] MEDS: LOVENOX INJ 30 MG SYR SC SCH (08:55)
[2022-01-31] MEDS: MAGNESIUM SULFATE 1 GRAM/100 mL PREMIX 1 G/100 ML BAG IV PRN ×2 (08:55→11:17)
[2022-01-31] MEDS: SILODOSIN 8 MG PO SCH (08:55)
[2022-01-31] MEDS: ULTRAM PO PRN (09:06)
[2022-01-31] MEDS: PATIENT'S HOME MEDICATION TD SCH (09:15)
[2022-01-31] MEDS: ALPHAGAN-P OPHTH 1 DOSE OP SCH ×2 (09:15→20:08)
[2022-01-31] MEDS: EXELON PATCH TD SCH ×2 (11:50→11:53)
[2022-01-31] MEDS: NS 1,000 ML IV 1,000 ML IV SCH ×2 (12:51→20:09)
--- NOTE | 2022-01-31 14:45 | PCM.PROG ---
Progress Note Progress Note for Day of Date of Exam: 01/31/22 Subjective Subjective: IS CURRENTLY INPATIENT STATUS FOR TREATMENT OF ACUTE RENAL FAILURE, RECENT FALL, AND GENERALIZED WEAKNESS. TODAY, HE IS ALERT AND ORIENTED, SITTING UP IN CHAIR ON MORNING ROUNDS. HE CONTINUES WITH COMPLAINTS OF GENERALIZED WEAKNESS. HE CONTINUES TO HAVE SHORTNESS OF BREATH, BUT REPORTS SLIGHT IMPROVEMENT THIS MORNING. HIS DAUGHTER REPORTS THAT HE HAS HAD SOME CONFUSION THROUGHOUT THE NIGHT. SHE ALSO REPORTS AN UNSTEADY GAIT ON AMBULATION. ON EXAMINATION, HEART IS REGULAR IN RATE AND RHYTHM. BILATERAL LUNGS ARE NOTED WITH DIMINISHED LUNG SOUNDS THROUGHOUT. ABDOMEN IS ROUND, SOFT, AND NON-TENDER WITH NORMAL BOWEL SOUNDS NOTED IN ALL QUADRANTS. BILATERAL LOWER EXTREMITIES ARE NOTED WITH 1+ PITTING EDEMA. HIS VITALS THIS MORNING ARE: 98.3-80-20-96%-171/89. LABS WERE OBTAINED. WBC 7.7, RBC 3.49, HGB 11.1, HCT 31.5, PLT COUNT 177, SODIUM 139, POTASSIUM 3.3, CHLORIDE 107, CARBON DIOXIDE 18.6, BUN 40, CREATININE 4.44, GFR 14, GLUCOSE 91, CALCIUM 8.2, AST 30, ALT 24, ALK PHOS 67, BNP 313, TOTAL PROTEIN 6.0, ALBUMIN 2.7. URINE CULTURE IS PENDING. A RENAL ULTRASOUND WAS OB AINED YESTERDAY AND REVEALED: 1. Increased renal echotexture worrisome for medical renal disease. 2. No evidence of hydronephrosis or obstructive uropathy. 3. Large left upper pole renal cyst. 4. Prostate hypertrophy and possible bladder outlet obstruction. A CHEST XRAY WAS OBTAINED THIS MORNING AND REVEALED: Heart size is now normal. Tammi are normal. No congestive heart failure is noted. No acute alveolar infiltrates are identified. Right hemidiaphragm remains elevated. Bony thorax is unremarkable. HE IS CURRENTLY RECEIVING NORMAL SALINE AT 30 ML/HR, LOVENOX 30MG SC DAILY, AMLODIPINE 10MG DAILY, AND HIS HOME MEDICATIONS WERE RESUMED. TODAY, WE WILL DISCONTINUE THE PROSCAR AND START FLOMAX 0.4MG PO BID, AND AVODART 0.5MG PO DAILY. WE WILL OBTAIN AN ECHO. PHYSICAL THERAPY HAS BEEN WORKING WITH PATIENT DAILY AND FEEL THAT HE WOULD BENEFIT FROM CONTINUED PT SERVICES. PATIENT APPARTENTLY LIVES AT HOME WITH HIS ELDERLY FAMILY MEMBER. FAMILY IS REQUESTING SHORT TERM PLACEMENT FOR PHYSICAL TH ERAPY AND REHAB. OTHERWISE, WE WILL FOLLOW-UP WITH AM LABS AND CHEST XRAY AND CONTINUE TO MONITOR. TIME SPENT ON CLINICAL ASSESSMENT, REVIEWING LABS AND IMAGING, DECISION MAKING, AND DOCUMENTATION GREATER THAN 45 MINUTES. 28 January 2022 Patient is resting in bed this morning with no new complaints. He rested well last night and is feeling better this morning. This time we are still awaiting short-term physical therapy rehab placement. Continue his current treatment at this time with no new changes. 29 January 2022 Patient is sitting up in bed this morning, more alert and awake. He had no problems through the night or yesterday. He is tolerating physical therapy well and voices no new complaints this morning. Blood pressure slightly elevated however his vital signs remained stable his labs are stable overall and his creatinine is also stable at 4.74. He is currently awaiting short-term physical therapy rehab placement next week. 30 January 2022 Patient is lying in bed this morning. He is resting and has no new complaints. He did well last night with no new problems noted. We are currently still awaiting short-term physical therapy rehab placement next week. No new changes to treatment. 31 January 2022 Patient reports he rested well last night with no new problems. This morning he is doing well and has no new complaints. His creatinine was noted to be slightly higher this morning at 5.9. Potassium is slightly low at 3.4. We will give him 10 mEq potassium chloride by mouth x1 today. Patient should be going for inpatient rehab in the next day or 2. Past Medical Family Social History Past Med/Fam/Surg Hx: No changes since H&P Allergies: Allergies poison oak extract Allergy (Verified 12/11/18 14:33) Review of Systems ROS: No change since H&P Vital Signs and I&O's Vital Signs: Temperature 98.0 F Pulse Rate [Left Brachial] 72 Pulse Rate 83 Respiratory Rate 20 Blood Pressure [Left Arm] 127/77 Blood Pressure 135/74 O2 Sat by Pulse Oximetry 93 Intake and Output: Intake & Output 01/29/22 01/30/22 01/31/22 02/01/22 11:59 11:59 11:59 11:59 Intake Total 1591 / 1591 2069 1194 / 1194 Balance 1591 / 1591 2069 1194 / 1194 Physical Exam Oriented: Person Eyes: Normal Ear: Normal Nose: Normal Throat: Normal Respiratory: Generalized and Diminished Cardiovascular: Normal and Edema (1+ PITTING EDEMA BILATERAL LOWER EXTREMITIES ) : Normal Auscultation: Bowel Sounds: Normal Tenderness: Normal Skin: Decreased Turgur Musculoskeletal: Back:Lumbar Mood Description: Calm Affect: Flat Speech Pattern: Clear and Appropriate Laboratory and Diagnostics Result Diagrams: 01/31/22 05:21 01/31/22 05:21 Labs: 01/28/22 13:05 Urine,Clean Catch Urine Culture - Final 01/25/22 03:20 Urine,Clean Catch Urine Culture - Final Laboratory WBC 5.0 X10^3/uL (3.6-10.0) 01/31/22 05:21 RBC 3.12 X10^6/uL (4.7-6.0) L 01/31/22 05:21 Hgb 9.8 g/dL (13.5-18.0) L 01/31/22 05:21 Hct 28.2 % (42.0-54.0) L 01/31/22 05:21 MCV 90.5 fL (80.0-100.0) 01/31/22 05:21 MCH 31.6 pg (27.0-34.0) 01/31/22 05:21 MCHC 34.9 g/dL (33.0-35.0) 01/31/22 05:21 RDW 14.2 % (11.6-16.5) 01/31/22 05:21 Plt Count 216 X10^3/uL (150.0-450.0) 01/31/22 05:21 MPV 9.5 fL (7.4-11.0) 01/31/22 05:21 Neut % (Auto) 69.0 % (42.0-75.0) 01/31/22 05:21 Lymph % (Auto) 16.6 % (21.0-51.0) L 01/31/22 05:21 Sac % (Auto) 10.3 % (0.0-13.0) 01/31/22 05:21 Eos % (Auto) 2.9 % (0.9-2.9) 01/31/22 05:21 Baso % (Auto) 1.2 % (0.2-1.0) H 01/31/22 05:21 Neut # (Auto) 3.4 x10^3/uL (2.2-4.8) 01/31/22 05:21 Lymph # (Auto) 0.8 X10^3/uL (1.3-2.9) L 01/31/22 05:21 Sac # (Auto) 0.5 x10^3/uL (0.3-0.8) 01/31/22 05:21 Eos # (Auto) 0.1 x10^3/uL (0.0-0.2) 01/31/22 05:21 Baso # (Auto) 0.1 X10^3/uL (0.0-0.1) 01/31/22 05:21 Absolute Nucleated RBC 0.0 /100WBC 01/31/22 05:21 Sodium 140 mmol/L (136-145) 01/31/22 05:21 Corrected Sodium TNP 01/31/22 05:21 Potassium 3.4 mmol/L (3.5-5.1) L 01/31/22 05:21 Chloride 109 mmol/L (98-107) H 01/31/22 05:21 Carbon Dioxide 18.2 mmol/L (21-32) L 01/31/22 05:21 BUN 42 mg/dL (7-18) H 01/31/22 05:21 Creatinine 5.00 mg/dL (0.70-1.30) H 01/31/22 05:21 Est GFR (MDRD) Af Amer 15 (>60) L 01/31/22 05:21 Est GFR (MDRD) Non-Af 12 (>60) L 01/31/22 05:21 Glucose 84 mg/dL (65-99) 01/31/22 05:21 Calcium 8.3 mg/dL (8.5-10.1) L 01/31/22 05:21 Corrected Calcium 9.5 mg/dL (8.5-10.1) 01/31/22 05:21 Magnesium 1.9 mg/dL (2.0-2.9) L 01/31/22 05:21 Total Bilirubin 0.30 mg/dL (0.2-1.0) 01/31/22 05:21 AST 42 Units/L (15-37) H 01/31/22 05:21 ALT 50 Units/L (12-78) 01/31/22 05:21 Alkaline Phosphatase 68 Units/L (46-116) 01/31/22 05:21 B-Natriuretic Peptide 170 pg/mL (0-79) H 01/31/22 05:21 Total Protein 5.7 g/dL (6.4-8.2) L 01/31/22 05:21 Albumin 2.5 g/dL (3.4-5.0) L 01/31/22 05:21 Globulin 3.2 g/dL (2.5-4.5) 01/31/22 05:21 Albumin/Globulin Ratio 0.8 Ratio (1.1-2.1) L 01/31/22 05:21 TSH 3rd Generation 4.342 uIU/mL (0.358-3.74) H 01/22/22 12:56 Specimen Type Clean catch urine 01/25/22 03:20 Urine Color Pale yellow (YELLOW) 01/25/22 03:20 Urine Appearance Clear (CLEAR) 01/25/22 03:20 Urine pH 6.0 (5.0 - 8.0) 01/25/22 03:20 Ur Specific [place] 1.020 (1.000-1.030) 01/25/22 03:20 Urine Protein 4+ (NEGATIVE) 01/25/22 03:20 Urine Glucose (UA) 3+ (NEGATIVE) 01/25/22 03:20 Urine Ketones Negative (NEGATIVE) 01/25/22 03:20 Urine Blood 3+ (NEGATIVE) 01/25/22 03:20 Urine Nitrite Negative (NEGATIVE) 01/25/22 03:20 Urine Bilirubin Negative (NEGATIVE) 01/25/22 03:20 Urine Urobilinogen Normal (NORMAL) 01/25/22 03:20 Ur Leukocyte Esterase Negative (NEGATIVE) 01/25/22 03:20 Urine RBC 0-2 /HPF (0-3) 01/25/22 03:20 Urine WBC None seen /HPF (0-5) 01/25/22 03:20 Ur Squamous Epith Cells Rare /HPF (NEGATIVE) 01/25/22 03:20 Urine Bacteria Negative /HPF (NEGATIVE) 01/25/22 03:20 Ur Culture Indicated? Yes/culture set up 01/25/22 03:20 Plan (1) Acute renal failure: Status: Acute Qualifiers: Acute renal failure type: unspecified Qualified Code(s): N17.9 - Acute kidney failure, unspecified Plan: NORMAL SALINE AT 20 ML/HR, LOVENOX 30MG SC DAILY, FLOMAX 0.4MG PO BID, AVODART 0.5MG PO DAILY, DISCONTINUE PROSCAR, CONTINUE OTHER HOME MEDICATIONS, PHYSICAL THERAPY (2) Bladder outlet obstruction: Status: Suspected (3) Fall: Status: Acute Qualifiers: Encounter type: initial encounter Qualified Code(s): W19.XXXA - Unspecified fall, initial encounter (4) Generalized weakness: Status: Acute (5) AMS (altered mental status): Status: Acute Qualifiers: Altered mental status type: transient alteration of awareness Qualified Code(s): R40.4 - Transient alteration of awareness (6) Hypertension: Status: Chronic Qualifiers: Hypertension type: primary hypertension Qualified Code(s): I10 - Essential (primary) hypertension (7) Dementia: Status: Chronic Qualifiers: Dementia behavioral or psychological symptom: unspecified whether behavioral, psychotic, or mood disturbance or anxiety Dementia severity: unspecified severity Dementia type: vascular dementia Qualified Code(s): F01.50 - Vascular dementia, unspecified severity, without behavioral disturbance, psychotic disturbance, mood disturbance, and anxiety (8) Hypothyroidism: Status: Chronic Qualifiers: Hypothyroidism type: acquired Qualified Code(s): E03.9 - Hypothyroidism, unspecified (9) BPH (benign prostatic hyperplasia): Status: Acute
[2022-01-31] MEDS: CRESTOR TAB 10 MG PO SCH (20:08)
[2022-01-31] MEDS: XALATAN OP SCH (20:08)
[2022-01-31] MEDS: RESTORIL CAP 15 MG PO PRN (20:08)
[2022-02-01] MEDS: NS 1,000 ML IV 1,000 ML IV SCH (02:08)
[2022-02-01] MEDS: SYNTHROID 75 mcg TAB PO SCH (05:31)
[2022-02-01 06:26] LABS: BASOPHILS % (AUTO) 0.9 % (0.2-1.0); EOSINOPHILS # (AUTO) 0.2 x10^3/uL (0.0-0.2); EOSINOPHILS % (AUTO) 3.1 % (0.9-2.9); HEMATOCRIT 28.5 % (42.0-54.0); HEMOGLOBIN 9.9 g/dL (13.5-18.0); LYMPHOCYTES # (AUTO) 0.7 X10^3/uL (1.3-2.9); LYMPHOCYTES % (AUTO) 12.8 % (21.0-51.0); MEAN CORPUSCULAR HEMOGLOBIN 31.4 pg (27.0-34.0); MEAN CORPUSCULAR HGB CONC 34.8 g/dL (33.0-35.0); MEAN PLATELET VOLUME 9.5 fL (7.4-11.0); MONOCYTES # (AUTO) 0.6 x10^3/uL (0.3-0.8); MONOCYTES % (AUTO) 10.6 % (0.0-13.0); NEUTROPHILS % (AUTO) 72.6 % (42.0-75.0); RED BLOOD COUNT 3.17 X10^6/uL (4.7-6.0); RED CELL DISTRIBUTION WIDTH 14.2 % (11.6-16.5); WHITE BLOOD COUNT 5.5 X10^3/uL (3.6-10.0)
[2022-02-01 06:42] LABS: ALANINE AMINOTRANSFERASE 49 Units/L (12-78); ALBUMIN 2.7 g/dL (3.4-5.0); ALKALINE PHOSPHATASE 73 Units/L (46-116); ASPARTATE AMINO TRANSFERASE 42 Units/L (15-37); BLOOD UREA NITROGEN 41 mg/dL (7-18); CALCIUM 8.2 mg/dL (8.5-10.1); CARBON DIOXIDE 17.4 mmol/L (21-32); CHLORIDE 108 mmol/L (98-107); COR CA(FOR HYPOALB) 9.2 mg/dL (8.5-10.1); CREATININE 5.24 mg/dL (0.70-1.30); MAGNESIUM 2.5 mg/dL (2.0-2.9); SODIUM 139 mmol/L (136-145); eGFR NON BLACK RACES 11 (>60)
[2022-02-01] MEDS: SILODOSIN 8 MG PO SCH (08:14)
[2022-02-01] MEDS: FLOMAX PO SCH (08:16)
[2022-02-01] MEDS: AVODART PO SCH (08:16)
[2022-02-01] MEDS: ALPHAGAN-P OPHTH 1 DOSE OP SCH (08:16)
[2022-02-01] MEDS: NAMENDA TAB 10 MG PO SCH (08:17)
[2022-02-01] MEDS: LOVENOX INJ 30 MG SYR SC SCH (08:17)
[2022-02-01] MEDS: EXELON PATCH TD SCH (08:18)
[2022-02-01] MEDS: NORVASC TAB 5 MG PO SCH (10:18)
[2022-02-01 12:42] VITALS: BP 159/74
== END 2022-02-01 15:40 ==
LOC: ER 11:21 → INTOOBSV 17:40 → MED/SURG 17:40
PROVIDERS: ADMIT Internal Medicine; ATTEND Internal Medicine
DX: E03.8 Other specified hypothyroidism; M48.02 Spinal stenosis, cervical region; W18.39XA Other fall on same level, initial encounter; N17.8 Other acute kidney failure; R26.81 Unsteadiness on feet; S41.112A Laceration without foreign body of left upper arm, initial encounter; R60.0 Localized edema; N28.1 Cyst of kidney, acquired; R06.02 Shortness of breath; N40.0 Benign prostatic hyperplasia without lower urinary tract symptoms; Y92.002 Bathroom of unspecified non-institutional (private) residence as the place of occurrence of the external cause; I10 Essential (primary) hypertension; F01.50 Vascular dementia, unspecified severity, without behavioral disturbance, psychotic disturbance, mood disturbance, and anxiety; Z66 Do not resuscitate; R53.1 Weakness; R40.4 Transient alteration of awareness; J98.11 Atelectasis; S09.90XA Unspecified injury of head, initial encounter

== ENCOUNTER 2022-06-06 16:59 | Inpatient (IN) ==
[2022-06-06] MEDS: NS 1,000 ML IV 1,000 ML IV SCH (17:51)
[2022-06-06] MEDS ORDERED: SEROquel TAB 25 mg PO PRN (20:46)
[2022-06-06] MEDS ORDERED: ALPHAGAN-P OPHTH 1 DOSE OP SCH (21:00)
[2022-06-06] MEDS ORDERED: SILODOSIN 8 MG PO SCH (21:00)
[2022-06-06] MEDS ORDERED: FOOD SUPPLEMT LACTOSE REDUCED PO SCH (21:00)
[2022-06-06] MEDS ORDERED: COAL TAR TP SCH (21:00)
[2022-06-06] MEDS: ARTIFICIAL TEARS DROPS OP SCH (22:08)
[2022-06-06] MEDS: ELAVIL PO SCH (22:09)
[2022-06-06] MEDS: XALATAN OP SCH (22:09)
[2022-06-06] MEDS: CRESTOR TAB 10 MG PO SCH (22:10)
[2022-06-06] MEDS: RESTORIL CAP 15 MG PO SCH (22:11)
[2022-06-06] MEDS: COLACE CAP 100 MG PO SCH (22:11)
[2022-06-06] MEDS: FLOMAX PO SCH (22:12)
[2022-06-07] MEDS: NS 1,000 ML IV 1,000 ML IV SCH ×3 (04:05→20:45)
[2022-06-07] MEDS: SYNTHROID 50 mcg TAB PO SCH (05:24)
[2022-06-07 06:22] LABS: BASOPHILS % (AUTO) 0.7 % (0.2-1.0); EOSINOPHILS # (AUTO) 0.1 x10^3/uL (0.0-0.2); EOSINOPHILS % (AUTO) 2.9 % (0.9-2.9); HEMATOCRIT 22.8 % (42.0-54.0); HEMOGLOBIN 8.1 g/dL (13.5-18.0); LYMPHOCYTES # (AUTO) 0.9 X10^3/uL (1.3-2.9); LYMPHOCYTES % (AUTO) 21.6 % (21.0-51.0); MEAN CORPUSCULAR HEMOGLOBIN 30.4 pg (27.0-34.0); MEAN CORPUSCULAR HGB CONC 35.5 g/dL (33.0-35.0); MEAN CORPUSCULAR VOLUME 85.7 fL (80.0-100.0); MEAN PLATELET VOLUME 8.9 fL (7.4-11.0); MONOCYTES # (AUTO) 0.3 x10^3/uL (0.3-0.8); MONOCYTES % (AUTO) 8.7 % (0.0-13.0); NEUTROPHILS # (AUTO) 2.6 x10^3/uL (2.2-4.8); NEUTROPHILS % (AUTO) 66.1 % (42.0-75.0); PLATELET COUNT 138 X10^3/uL (150.0-450.0); RED BLOOD COUNT 2.67 X10^6/uL (4.7-6.0); RED CELL DISTRIBUTION WIDTH 16.6 % (11.6-16.5)
[2022-06-07 06:45] LABS: ALANINE AMINOTRANSFERASE 22 Units/L (12-78); ALBUMIN 3.2 g/dL (3.4-5.0); ALKALINE PHOSPHATASE 68 Units/L (46-116); ASPARTATE AMINO TRANSFERASE 18 Units/L (15-37); BLOOD UREA NITROGEN 118 mg/dL (7-18); CALCIUM 8.7 mg/dL (8.5-10.1); CARBON DIOXIDE 18.9 mmol/L (21-32); CHLORIDE 106 mmol/L (98-107); COR CA(FOR HYPOALB) 9.3 mg/dL (8.5-10.1); CREATININE 10.05 mg/dL (0.70-1.30); GLUCOSE 81 mg/dL (65-99); POTASSIUM 4.3 mmol/L (3.5-5.1); SODIUM 142 mmol/L (136-145); TOTAL PROTEIN 6.3 g/dL (6.4-8.2); eGFR NON BLACK RACES 5 (>60)
[2022-06-07] MEDS ORDERED: PATIENT'S HOME MEDICATION (Aspirin 81 mg Tablet) PO SCH (09:00)
[2022-06-07] MEDS: AVODART PO SCH (09:12)
[2022-06-07] MEDS: NAMENDA TAB 10 MG PO SCH ×2 (09:12→20:41)
[2022-06-07] MEDS: FLOMAX PO SCH ×2 (09:12→20:40)
[2022-06-07] MEDS: COLACE CAP 100 MG PO SCH ×2 (09:13→20:43)
[2022-06-07] MEDS: NORVASC TAB 10 MG PO SCH (09:13)
[2022-06-07] MEDS: ALPHAGAN-P OPHTH 1 DOSE OP SCH ×2 (09:13→20:38)
[2022-06-07] MEDS: ARTIFICIAL TEARS DROPS OP SCH ×2 (09:13→20:43)
[2022-06-07] MEDS: EXELON PATCH TD SCH (09:14)
[2022-06-07] MEDS: ASPIRIN EC 81 MG PO SCH (10:57)
--- NOTE | 2022-06-07 12:35 | DR.H&P ---
H&P - History & Physical for Day of: H&P Date: 06/06/22 - Chief Complaint Chief Complaint: ABNORMAL LABS, GENERALIZED WEAKNESS, FREQUENT FALLS - History of Present Illness History of Present Illness: IS A 76 YEAR OLD PATIENT OF OURS. HE PRESENTED TO THE HOSPITAL A DIRECT ADMISSION FOR TREATMENT OF ACUTE ON CHRONIC RENAL FAILURE, GENERALIZED WEAKNESS, AND FREQUENT FALLS. HIS PMH INCLUDES: ANXIETY, CAD, BPH, DEMENTIA, DEPRESSION, DYSLIPIDEMIA, HTN, HYPOTHYROIDISM, RENAL DISEASE. PATIENTS MOST RECENT FALL WAS [facility]ERDAY [facility]. HE HAD OUTPATIENT LABS ON 06/06. ON OUTPATIENT LABS, PATIENTS BUN WAS 119 AND HIS CREATININE WAS 10.17, GFR 5. ADDITIONALLY, HE WAS NOTED TO HAVE A HEMOGLOBIN OF 9.0 AND HEMATOCRIT OF 26.2. ON 03/23/22, HIS BUN WAS 48, CREATININE WAS 5.81, AND GFR WAS 10. WE HAVE DISCUSSED PATIENTS CONDITION WITH HIM AND HIS CHILDREN AT LENGTH. PATIENT AND FAMILY DO NOT WISH TO PURSUE DIALYSIS. ON ADMISSION TO THE HOSPITAL, HIS VITALS WERE: 97.6-80-18-96%-175/84. HE WAS STARTED ON NORMAL SALINE AT 80 ML/HR AND HIS HOME MEDICATIONS WERE RESUMED. HIS HOME MEDICATIONS INCLUDE: ELAVIL, NORVASC, ECOTRIN, ALPHAGAN DROPS, COLACE, AVODART, ARTIFICIAL TEARS, XALATAN, SYNTHROID, NAMENDA, SEROQUEL, EXELON PATCH, CRESTOR, FLOMAX, RESTORIL, AND ULTRAM. WE WILL HAVE PHYSICAL THERAPY EVALUATE AND WORK WITH PATIENT. OTHERWISE, WE WILL FOLLOW-UP WITH AM LABS AND CONTINUE TO MONITOR. TIME SPENT ON CLINICAL ASSESSMENT, REVIEWING LABS AND IMAGING, DECISION MAKING, AND DOCUMENTATION GREATER THAN 75 MINUTES. - Past Medical History Past Medical History: Anxiety, Coronary Artery Disease, Dementia, Depression, Dyslipidemia, GERD, Hypertension, Hypothyroidism, Renal Disease Additional Medical History: BPH - Past Surgical History Surgical History: Tonsillectomy - Family History Family Medical History: Diabetes Mellitus, Coronary Artery Disease - Social History Does patient currently use any type of tobacco product: No Have you used tobacco products in the last 12 months: No Type of Tobacco Use: None Does any household member use tobacco: No Alcohol Use: None Drug Use: None - Medications Home Medications: codeine Allergy (Verified 06/06/22 18:20) poison oak extract Allergy (Verified 06/06/22 18:20) simvastatin [From Zocor] Allergy (Verified 06/06/22 18:20) CONTINUE taking the following medications coal tar 0.5 % shampoo (Thera-Gel) 1 ea topical .TOMMY THORNTON, SAT 06/06/22 [History] docusate sodium 100 mg capsule (Colace) 100 mg PO BID 06/06/22 [History] dutasteride 0.5 mg capsule (Avodart) 0.5 mg PO DAILY 06/06/22 [History] food supplemt, lactose-reduced 240 ea PO BID 06/06/22 [History] peg [id number] 1 %-0.2 %-0.2 % eye drops (Artificial Tears ([id number])) 1 drp ophthalmic (eye) BID 06/06/22 [History] quetiapine 25 mg tablet 25 mg PO QPM PRN 06/06/22 [History] tamsulosin 0.4 mg capsule 0.4 mg PO BID 06/06/22 [History] temazepam 15 mg capsule (Restoril) 15 mg PO HS 06/06/22 [History] tramadol 50 mg tablet 50 mg PO Q6H PRN Pain 06/06/22 [History] - Review of Systems Constitutional: Weakness Eyes: No Symptoms Reported ENT: No Symptoms Reported Respiratory: No Symptoms Reported Cardiovascular: No Symptoms Reported Gastrointestinal: No Symptoms Reported Genitourinary: No Symptoms Reported Musculoskeletal: No Symptoms Reported Skin: No Symptoms Reported Neurological: Weakness - Physical Exam Vital Signs: Temperature 98.7 F Pulse Rate [Left Radial] 74 Respiratory Rate 20 Blood Pressure [Right Arm] 183/85 Blood Pressure [Left Arm] 175/84 O2 Sat by Pulse Oximetry 98 Oriented: Normal Eyes: Normal Ear: Normal Nose: Normal Throat: Normal Respiratory: Diminished Throughout Cardiovascular: Normal : Normal Auscultation: Bowel Sounds: Normal Palpation: Normal Tenderness: Normal Skin: Normal Musculoskeletal: Normal Psychiatric: Normal Mood Description: Calm Affect: Normal Speech Pattern: Inappropriate - Assessment/Plan (1) Acute on chronic kidney failure Qualifiers: Acute renal failure type: unspecified Chronic kidney disease stage: stage 5, not on chronic dialysis Qualified Code(s): N17.9 - Acute kidney failure, unspecified; N18.5 - Chronic kidney disease, stage 5 Status: Acute Plan: ADMIT, NORMAL SALINE AT 80 ML/HR AND HIS HOME MEDICATIONS WERE RESUMED. HIS HOME MEDICATIONS INCLUDE: ELAVIL, NORVASC, ECOTRIN, ALPHAGAN DROPS, COLACE, AVODART, ARTIFICIAL TEARS, XALATAN, SYNTHROID, NAMENDA, SEROQUEL, EXELON PATCH, CRESTOR, FLOMAX, RESTORIL, AND ULTRAM. (2) Frequent falls Status: Acute (3) Generalized weakness Status: Acute (4) Anemia Qualifiers: Anemia type: due to chronic kidney disease Chronic kidney disease stage: unspecified stage Qualified Code(s): N18.9 - Chronic kidney disease, unspecified; D63.1 - Anemia in chronic kidney disease Status: Acute (5) GERD (gastroesophageal reflux disease) Qualifiers: Esophagitis presence: esophagitis presence not specified Qualified Code(s): K21.9 - Gastro-esophageal reflux disease without esophagitis Status: Acute (6) Dementia Qualifiers: Dementia type: vascular dementia Dementia severity: unspecified severity Dementia behavioral or psychological symptom: unspecified whether behavioral, psychotic, or mood disturbance or anxiety Qualified Code(s): F01.50 - Vascular dementia, unspecified severity, without behavioral disturbance, psychotic disturbance, mood disturbance, and anxiety Status: Chronic (7) Hypothyroidism Qualifiers: Hypothyroidism type: acquired Qualified Code(s): E03.9 - Hypothyroidism, unspecified Status: Chronic (8) Hypertension Qualifiers: Hypertension type: primary hypertension Qualified Code(s): I10 - Essential (primary) hypertension Status: Chronic (9) BPH (benign prostatic hyperplasia) Qualifiers: Lower urinary tract symptom presence: unspecified whether lower urinary tract symptoms present Qualified Code(s): N40.0 - Benign prostatic hyperplasia without lower urinary tract symptoms Status: Chronic - Allergies Allergies/Adverse Reactions: Allergies Allergy/AdvReac Type Severity Reaction Status Date / Time codeine Allergy Verified 06/06/22 18:20 poison oak extract Allergy Verified 06/06/22 18:20 simvastatin [From Zocor] Allergy Verified 06/06/22 18:20
[2022-06-07] MEDS ORDERED: BUTT CREAM (COMPOUND) TOP PRN (18:44)
[2022-06-07] MEDS: RESTORIL CAP 15 MG PO SCH (20:40)
[2022-06-07] MEDS: ELAVIL PO SCH (20:41)
[2022-06-07] MEDS: CRESTOR TAB 10 MG PO SCH (20:42)
[2022-06-07] MEDS: XALATAN OP SCH (20:44)
[2022-06-07] MEDS: ULTRAM PO PRN (20:59)
[2022-06-08] MEDS: ULTRAM PO PRN (05:00)
[2022-06-08] MEDS: SYNTHROID 50 mcg TAB PO SCH (06:23)
[2022-06-08 06:50] LABS: BASOPHILS % (AUTO) 0.7 % (0.2-1.0); EOSINOPHILS # (AUTO) 0.1 x10^3/uL (0.0-0.2); EOSINOPHILS % (AUTO) 2.9 % (0.9-2.9); HEMATOCRIT 21.2 % (42.0-54.0); HEMOGLOBIN 7.5 g/dL (13.5-18.0); LYMPHOCYTES # (AUTO) 0.8 X10^3/uL (1.3-2.9); LYMPHOCYTES % (AUTO) 19.2 % (21.0-51.0); MEAN CORPUSCULAR HEMOGLOBIN 30.4 pg (27.0-34.0); MEAN CORPUSCULAR HGB CONC 35.4 g/dL (33.0-35.0); MEAN CORPUSCULAR VOLUME 85.9 fL (80.0-100.0); MEAN PLATELET VOLUME 8.9 fL (7.4-11.0); MONOCYTES # (AUTO) 0.3 x10^3/uL (0.3-0.8); MONOCYTES % (AUTO) 8.3 % (0.0-13.0); NEUTROPHILS # (AUTO) 2.8 x10^3/uL (2.2-4.8); NEUTROPHILS % (AUTO) 68.9 % (42.0-75.0); PLATELET COUNT 140 X10^3/uL (150.0-450.0); RED BLOOD COUNT 2.47 X10^6/uL (4.7-6.0); RED CELL DISTRIBUTION WIDTH 16.7 % (11.6-16.5)
[2022-06-08 06:57] LABS: ALANINE AMINOTRANSFERASE 17 Units/L (12-78); ALBUMIN 2.9 g/dL (3.4-5.0); ALKALINE PHOSPHATASE 60 Units/L (46-116); ASPARTATE AMINO TRANSFERASE 15 Units/L (15-37); BLOOD UREA NITROGEN 109 mg/dL (7-18); CALCIUM 8.3 mg/dL (8.5-10.1); CARBON DIOXIDE 16.5 mmol/L (21-32); CHLORIDE 110 mmol/L (98-107); COR CA(FOR HYPOALB) 9.2 mg/dL (8.5-10.1); CREATININE 9.73 mg/dL (0.70-1.30); GLUCOSE 76 mg/dL (65-99); SODIUM 143 mmol/L (136-145); TOTAL PROTEIN 5.7 g/dL (6.4-8.2); eGFR NON BLACK RACES 6 (>60)
[2022-06-08] MEDS: FLOMAX PO SCH ×2 (08:29→20:09)
[2022-06-08] MEDS: AVODART PO SCH (08:29)
[2022-06-08] MEDS: COLACE CAP 100 MG PO SCH ×3 (08:29→20:10)
[2022-06-08] MEDS: NORVASC TAB 10 MG PO SCH (08:29)
[2022-06-08] MEDS: NAMENDA TAB 10 MG PO SCH ×2 (08:29→20:08)
[2022-06-08] MEDS: ASPIRIN EC 81 MG PO SCH (08:29)
[2022-06-08] MEDS: EXELON PATCH TD SCH (08:30)
[2022-06-08] MEDS: ALPHAGAN-P OPHTH 1 DOSE OP SCH ×2 (08:31→20:10)
[2022-06-08] MEDS: ARTIFICIAL TEARS DROPS OP SCH ×2 (08:31→20:10)
[2022-06-08] MEDS: NS 1,000 ML IV 1,000 ML IV SCH ×3 (08:38→23:09)
[2022-06-08] MEDS: ELAVIL PO SCH (20:08)
[2022-06-08] MEDS: CRESTOR TAB 10 MG PO SCH (20:08)
[2022-06-08] MEDS: RESTORIL CAP 15 MG PO SCH (20:09)
[2022-06-08] MEDS: XALATAN OP SCH (20:10)
[2022-06-09] MEDS: SYNTHROID 50 mcg TAB PO SCH (05:51)
[2022-06-09 06:02] LABS: BASOPHILS % (AUTO) 0.5 % (0.2-1.0); EOSINOPHILS # (AUTO) 0.1 x10^3/uL (0.0-0.2); EOSINOPHILS % (AUTO) 3.3 % (0.9-2.9); HEMATOCRIT 21.1 % (42.0-54.0); HEMOGLOBIN 7.4 g/dL (13.5-18.0); LYMPHOCYTES # (AUTO) 0.9 X10^3/uL (1.3-2.9); LYMPHOCYTES % (AUTO) 21.1 % (21.0-51.0); MEAN CORPUSCULAR VOLUME 85.7 fL (80.0-100.0); MEAN PLATELET VOLUME 8.7 fL (7.4-11.0); MONOCYTES # (AUTO) 0.3 x10^3/uL (0.3-0.8); MONOCYTES % (AUTO) 8.2 % (0.0-13.0); NEUTROPHILS # (AUTO) 2.8 x10^3/uL (2.2-4.8); NEUTROPHILS % (AUTO) 66.9 % (42.0-75.0); PLATELET COUNT 138 X10^3/uL (150.0-450.0); RED BLOOD COUNT 2.46 X10^6/uL (4.7-6.0); RED CELL DISTRIBUTION WIDTH 16.8 % (11.6-16.5); WHITE BLOOD COUNT 4.1 X10^3/uL (3.6-10.0)
[2022-06-09 06:25] LABS: ALANINE AMINOTRANSFERASE 18 Units/L (12-78); ALBUMIN 2.8 g/dL (3.4-5.0); ALKALINE PHOSPHATASE 58 Units/L (46-116); ASPARTATE AMINO TRANSFERASE 17 Units/L (15-37); BLOOD UREA NITROGEN 103 mg/dL (7-18); CALCIUM 8.1 mg/dL (8.5-10.1); CARBON DIOXIDE 16.1 mmol/L (21-32); CHLORIDE 108 mmol/L (98-107); COR CA(FOR HYPOALB) 9.1 mg/dL (8.5-10.1); CREATININE 9.59 mg/dL (0.70-1.30); GLUCOSE 74 mg/dL (65-99); POTASSIUM 3.8 mmol/L (3.5-5.1); SODIUM 140 mmol/L (136-145); TOTAL PROTEIN 5.6 g/dL (6.4-8.2); eGFR NON BLACK RACES 6 (>60)
[2022-06-09] MEDS: NAMENDA TAB 10 MG PO SCH ×2 (08:42→21:30)
[2022-06-09] MEDS: AVODART PO SCH (08:42)
[2022-06-09] MEDS: FLOMAX PO SCH ×2 (08:42→21:29)
[2022-06-09] MEDS: COLACE CAP 100 MG PO SCH ×2 (08:42→21:31)
[2022-06-09] MEDS: NORVASC TAB 10 MG PO SCH (08:42)
[2022-06-09] MEDS: ASPIRIN EC 81 MG PO SCH (08:42)
[2022-06-09] MEDS: ARTIFICIAL TEARS DROPS OP SCH ×2 (08:54→21:32)
[2022-06-09] MEDS: ALPHAGAN-P OPHTH 1 DOSE OP SCH ×2 (08:54→21:32)
[2022-06-09] MEDS: EXELON PATCH TD SCH (10:55)
[2022-06-09] MEDS: NS 1,000 ML IV 1,000 ML IV SCH (14:05)
[2022-06-09] MEDS: CRESTOR TAB 10 MG PO SCH (21:29)
[2022-06-09] MEDS: ELAVIL PO SCH (21:30)
[2022-06-09] MEDS: RESTORIL CAP 15 MG PO SCH (21:31)
[2022-06-09] MEDS: XALATAN OP SCH (21:32)
[2022-06-10] MEDS: NS 1,000 ML IV 1,000 ML IV SCH (00:34)
[2022-06-10] MEDS: SYNTHROID 50 mcg TAB PO SCH (05:55)
[2022-06-10 06:10] LABS: HEMOGLOBIN 7.9 g/dL (13.5-18.0); WHITE BLOOD COUNT 4.3 X10^3/uL (3.6-10.0)
[2022-06-10 06:17] LABS: BASOPHILS % (AUTO) 0.9 % (0.2-1.0); EOSINOPHILS # (AUTO) 0.2 x10^3/uL (0.0-0.2); EOSINOPHILS % (AUTO) 4.1 % (0.9-2.9); HEMATOCRIT 22.4 % (42.0-54.0); LYMPHOCYTES # (AUTO) 1.1 X10^3/uL (1.3-2.9); LYMPHOCYTES % (AUTO) 26.1 % (21.0-51.0); MEAN CORPUSCULAR HEMOGLOBIN 30.4 pg (27.0-34.0); MEAN CORPUSCULAR HGB CONC 35.4 g/dL (33.0-35.0); MEAN CORPUSCULAR VOLUME 85.9 fL (80.0-100.0); MEAN PLATELET VOLUME 8.5 fL (7.4-11.0); MONOCYTES # (AUTO) 0.4 x10^3/uL (0.3-0.8); MONOCYTES % (AUTO) 9.4 % (0.0-13.0); NEUTROPHILS # (AUTO) 2.6 x10^3/uL (2.2-4.8); NEUTROPHILS % (AUTO) 59.5 % (42.0-75.0); PLATELET COUNT 135 X10^3/uL (150.0-450.0); RED BLOOD COUNT 2.61 X10^6/uL (4.7-6.0)
[2022-06-10 06:24] LABS: ALANINE AMINOTRANSFERASE 19 Units/L (12-78); ALKALINE PHOSPHATASE 69 Units/L (46-116); ASPARTATE AMINO TRANSFERASE 18 Units/L (15-37); BLOOD UREA NITROGEN 98 mg/dL (7-18); CALCIUM 8.1 mg/dL (8.5-10.1); CARBON DIOXIDE 16.8 mmol/L (21-32); CHLORIDE 108 mmol/L (98-107); COR CA(FOR HYPOALB) 8.9 mg/dL (8.5-10.1); CREATININE 9.63 mg/dL (0.70-1.30); GLUCOSE 75 mg/dL (65-99); POTASSIUM 3.7 mmol/L (3.5-5.1); SODIUM 140 mmol/L (136-145); eGFR NON BLACK RACES 6 (>60)
[2022-06-10] MEDS: NORVASC TAB 10 MG PO SCH (09:36)
[2022-06-10] MEDS: FLOMAX PO SCH (09:37)
[2022-06-10] MEDS: AVODART PO SCH (09:37)
[2022-06-10] MEDS: COLACE CAP 100 MG PO SCH (09:37)
[2022-06-10] MEDS: ASPIRIN EC 81 MG PO SCH (09:37)
[2022-06-10] MEDS: NAMENDA TAB 10 MG PO SCH (09:37)
[2022-06-10] MEDS: ALPHAGAN-P OPHTH 1 DOSE OP SCH (09:40)
[2022-06-10] MEDS: ARTIFICIAL TEARS DROPS OP SCH (09:40)
[2022-06-10] MEDS: EXELON PATCH TD SCH (09:41)
[2022-06-10 10:48] VITALS: BP 169/88
[2022-06-10] MEDS ORDERED: MAGIC MOUTHWASH (Orig. Formula) MT SCH (13:00)
[2022-06-10] MEDS ORDERED: MILK OF MAGNESIA PO PRN (13:45)
[2022-06-11 03:33] LABS: ALBUMIN (SPEP) 3.42 g/dL (3.75-5.01); ALPHA-2 (SPEP) 0.57 g/dL (0.48-1.05); GAMMA (SPEP) 0.82 g/dL (0.62-1.51)
== END 2022-06-10 14:25 | DRG 684 ==
LOC: MED/SURG
PROVIDERS: ADMIT Internal Medicine; ATTEND Internal Medicine